=== PATIENT | female | born 1930 ===

== ENCOUNTER 2017-09-28 20:40 | Inpatient (IN) | payer MEDICARE, MEDICAID ==
[2017-09-28 20:42] VITALS: BMI 36.6
[2017-09-28] MEDS ORDERED: Nitroglycerin 2% Ointment Foilpak UD TOP STA ×2 (21:07→23:08)
--- NOTE | 2017-09-28 21:59 | ED PDOC ---
HPI: SOB/CHF/COPD Time Seen by Provider: 09/28/17 20:54 Chief Complaint (Nursing): Shortness Of Breath Chief Complaint (Provider): Shortness Of Breath and Leg Swelling History Per: Patient History/Exam Limitations: no limitations Onset/Duration Of Symptoms: Days (x 1 week ) Current Symptoms Are (Timing): Still Present Additional Complaint(s): 87 year old male with history of renal insufficiency (not on dialysis) and shortness of breath presents to the ED with shortness of breath and leg swelling for the last week. Patient admits to be non compliant with her Lasix. She is oxygen dependent at night when she is home. Reports worsening shortness of breath at night despite oxygen use at home, dyspnea on exertion and describes orthopnea. Offers no other medical complaints. PMDb: Dr. Raymundo Past Medical History Reviewed: Historical Data, Nursing Documentation, Vital Signs Vital Signs: Last Vital Signs Temp 98.4 F 09/29/17 01:28 Pulse 96 H 09/29/17 02:51 Resp 20 09/29/17 01:28 BP 204/80 H 09/29/17 02:51 Pulse Ox 98 09/29/17 01:28 - Medical History PMH: Anxiety, Asthma, COPD, Depression, Diabetes, Deep Vein Thrombosis (left leg ), HTN, Hypercholesterolemia, Osteoporosis, Pneumonia, Chronic Kidney Disease ( stage IV), TIA Denies: Arthritis, CHF, Hypothyroidism, Rheumatoid Arthritis - Surgical History Surgical History: Appendectomy, Cholecystectomy - Family History Family History: States: Unknown Family Hx - Home Medications Home Medications: Ambulatory Orders Medication Instructions Recorded Ascorbic Acid [Vitamin C] 500 mg PO DAILY 09/28/17 Aspirin [Ecotrin] 81 mg PO DAILY 09/28/17 Atorvastatin [Lipitor] 20 mg PO DAILY 09/28/17 Ergocalciferol (Vitamin D2) 50,000 unit PO QWK 09/28/17 [Vitamin D2] Ferrous Sulfate [Feosol] 325 mg PO BID 09/28/17 Furosemide [Lasix] 40 mg PO DAILY 09/28/17 Glipizide [Glipizide ER] 2.5 mg PO BID 09/28/17 Multivitamin/Iron/Folic Acid 1 each PO DAILY 09/28/17 [Certavite-Antioxidant Tablet] Nitroglycerin [Nitroglycerin 0.4 mg TD DAILY 09/28/17 Transdermal System] cloNIDine [clonidine HCl] 0.1 mg PO TID 09/28/17 hydrALAZINE Hydrochloride 50 mg PO TID 09/28/17 [Apresoline] - Allergies Allergies/Adverse Reactions: Allergies Allergy/AdvReac Type Severity Reaction Status Date / Time No Known Allergies Allergy Verified 05/09/15 19:29 Review of Systems ROS Statement: Except As Marked, All Systems Reviewed And Found Negative Respiratory: Positive for: Shortness of Breath, SOB with Exertion, Other ( orthopnea) Physical Exam - Reviewed Nursing Documentation Reviewed: Yes Vital Signs Reviewed: Yes - Physical Exam Appears: Positive for: Non-toxic, In Acute Distress (mild ) Head Exam: Positive for: ATRAUMATIC, NORMAL INSPECTION, NORMOCEPHALIC Skin: Positive for: Normal Color, Warm, Dry Eye Exam: Positive for: EOMI, Normal appearance, PERRL Neck: Positive for: Normal, Painless ROM, Supple Cardiovascular/Chest: Positive for: Regular Rate, Rhythm. Negative for: Murmur Respiratory: Positive for: Crackles (at bases bilaterally) Gastrointestinal/Abdominal: Positive for: Normal Exam, Soft. Negative for: Tenderness Extremity: Positive for: Normal ROM, Pedal Edema (3+ edema in right LE; 1+ edema in left LE) Neurologic/Psych: Positive for: Alert, Oriented. Negative for: Motor/Sensory Deficits - Laboratory Results Result Diagrams: 09/28/17 22:57 09/28/17 22:57 - ECG O2 Sat by Pulse Oximetry: 95 (RA) Pulse Ox Interpretation: Normal Medical Decision Making Medical Decision Making: Time: 20:55 Impression: 87 year old female with dyspnea and swelling in setting of renal insufficiency Initial Plan: --labs --CXR --EKG --Lasix 40 mg IV --Nitroglycerin 2% --Duplex US CXR --reveals cardiomegaly and bilateral pulmonary vascular congestion. 22:18 --Patient will be admitted to inpatient care due to CHF and chronic renal failure. 23:08 US Duplex Bilateral Lower Extremity FINDINGS: Right deep veins: Unremarkable. No DVT in the right common femoral, femoral, proximal deep femoral or popliteal veins. The veins demonstrate normal color flow, are normally compressible, with normal phasic flow and/or augmentation response. Right superficial veins: Unremarkable. No thrombus in the visualized right great saphenous vein. Left deep veins: Unremarkable. No DVT in the left common femoral, femoral, proximal deep femoral or popliteal veins. The veins demonstrate normal color flow, are normally compressible, with normal phasic flow and/or augmentation response. Left superficial veins: Unremarkable. No thrombus in the visualized left great saphenous vein. IMPRESSION: Normal bilateral lower extremity duplex venous ultrasound. ---- Scribe Attestation: Documented by Mary Sylvester, acting as a scribe for Lupillo Hester MD Provider Scribe Attestation: All medical record entries made by the Scribe were at my direction and personally dictated by me. I have reviewed the chart and agree that the record accurately reflects my personal performance of the history, physical exam, medical decision making, and the department course for this patient. I have also personally directed, reviewed, and agree with the discharge instructions and disposition. Disposition - Clinical Impression Clinical Impression: CHF (congestive heart failure), CKD (chronic kidney disease) Discussed With DrRonaldo: Harmeet Raymundo Counseled Patient/Family Regarding: Studies Performed, Diagnosis - Disposition Disposition Time: 22:00 Condition: FAIR
[2017-09-28 23:08] LABS: BASO # 0.1 K/uL (0.0-0.2); BASO % 0.5 % (0.0-2.0); EOS # 0.3 K/uL (0.0-0.7); EOS % 2.4 % (0.0-4.0); LYMPH # 1.9 K/uL (1.0-4.3); LYMPH % 16.8 % (20.0-40.0); MEAN CELL VOLUME 88.3 fl (81.0-99.0); MEAN CORPUSCULAR HEMOGLOBIN 28.8 pg (27.0-31.0); MEAN CORPUSCULAR HGB CONC 32.6 g/dL (33.0-37.0); MEAN PLATELET VOLUME 8.6 fl (7.2-11.7); MONO # 0.8 K/uL (0.0-0.8); MONO % 6.9 % (0.0-10.0); NEUT # 8.3 K/uL (1.8-7.0); NEUT % 73.4 % (50.0-75.0); NRBC % 0.1 % (0.0-0.0); RBC 3.82 Mil/uL (3.80-5.20); RED CELL DISTRIBUTION WIDTH 15.1 % (11.5-14.5); WHITE BLOOD COUNT 11.3 K/uL (4.8-10.8)
[2017-09-28 23:17] LABS: ALB/GLOB RATIO 1.5 (1.0-2.1); ALBUMIN 4.3 g/dL (3.5-5.0); CALCIUM 9.6 mg/dL (8.4-10.2); INR 1.1 (0.9-1.2); PARTIAL THROMBOPLASTIN TIME 28.1 Seconds (25.6-37.1)
[2017-09-28 23:28] LABS: TROPONIN I 0.018 ng/mL (0.00-0.120)
[2017-09-29] MEDS: Albuterol-Ipratrop 3 mg / 0.5 (3 ml) UD INH SCH ×4 (03:00→19:26)
[2017-09-29] MEDS: Nitroglycerin 2% Ointment Foilpak UD TOP SCH ×4 (05:08→21:39)
[2017-09-29] MEDS ORDERED: Pneumococcal 23-Valent Vaccine IM ONE (06:00)
[2017-09-29 06:07] LABS: TROPONIN I 0.029 ng/mL (0.00-0.120)
[2017-09-29 06:12] LABS: T4 8.97 ug/dl (5.5-11.0)
[2017-09-29 06:22] LABS: HEMOGLOBIN 9.8 g/dL (12.0-16.0); MEAN CELL VOLUME 87.6 fl (81.0-99.0); MEAN CORPUSCULAR HEMOGLOBIN 30.2 pg (27.0-31.0); MEAN CORPUSCULAR HGB CONC 34.4 g/dL (33.0-37.0); RBC 3.23 Mil/uL (3.80-5.20); WHITE BLOOD COUNT 10.6 K/uL (4.8-10.8)
[2017-09-29 06:24] LABS: ALB/GLOB RATIO 1.3 (1.0-2.1); ALBUMIN 3.3 g/dL (3.5-5.0); CALCIUM 8.9 mg/dL (8.4-10.2)
[2017-09-29] MEDS: Insulin Lispro (humaLOG) 100 Units/ml Inj SC SCH ×4 (06:35→21:38)
[2017-09-29 07:02] LABS: URINE BACTERIA RARE (<OCC); URINE BILIRUBIN NEGATIVE (NEGATIVE); URINE BLOOD NEGATIVE (NEGATIVE); URINE CLARITY CLEAR (Clear); URINE COLOR YELLOW (YELLOW); URINE GLUCOSE (UA) NEG (Normal); URINE HYALINE CAST 0-2 /hpf (0-2); URINE LEUKOCYTE ESTERASE NEG Leu/uL (Negative); URINE PROTEIN 100 mg/dL (NEGATIVE); URINE UROBILINOGEN 0.2-1.0 mg/dL (0.2-1.0)
[2017-09-29] MEDS ORDERED: IRON PO SCH (09:00)
[2017-09-29] MEDS ORDERED: FOLIC ACID PO SCH (09:00)
[2017-09-29] MEDS ORDERED: MULTIVITAMIN PO SCH (09:00)
[2017-09-29] MEDS: GlipiZIDE 2.5 mg SR Tab PO SCH ×2 (09:08→17:07)
[2017-09-29] MEDS: Multivitamin With Minerals Tab PO SCH (09:08)
--- NOTE | 2017-09-29 11:23 | RAD ---
Date of service: 09/28/2017 HISTORY: Chest pain COMPARISON: 05/09/2015. FINDINGS: LUNGS: No active pulmonary disease. PLEURA: No significant pleural effusion identified, no pneumothorax apparent. CARDIOVASCULAR: Cardiomegaly, pulmonary vascular congestion. OSSEOUS STRUCTURES: Incompletely visualized degenerative changes both shoulders. VISUALIZED UPPER ABDOMEN: Normal. OTHER FINDINGS: None. IMPRESSION: Cardiomegaly/mild CHF.
--- NOTE | 2017-09-29 11:51 | US ---
Date of service: 09/28/2017 PROCEDURE: Bilateral lower extremity venous duplex Doppler. HISTORY: swelling COMPARISON: None available. TECHNIQUE: Bilateral common femoral, superficial femoral, popliteal and posterior tibial veins were evaluated. Flow was assessed with color Doppler, compressibility, assessment of phasic flow and augmentation response. FINDINGS: COMMON FEMORAL VEIN: Right CFV: Unremarkable. Left CFV: Unremarkable. SUPERFICIAL FEMORAL VEIN: Right SFV: Unremarkable. Left SFV: Unremarkable. POPLITEAL VEIN: Right Popliteal: Unremarkable. Left Popliteal: Unremarkable. POSTERIOR TIBIAL VEIN: Right PTV: Unremarkable. Left PTV: Unremarkable. OTHER FINDINGS: None. IMPRESSION: No evidence of deep venous thrombosis.
--- NOTE | 2017-09-29 12:22 | CP.PCM.CON ---
History of Present Illness - History of Present Illness History of Present Illness: This patient whole is 87 years of age known to me with history of chronic kidney disease stage III that has been stable in the past 2 years or so. And with a chronic hyperkalemia patient has been taken medication for the hyperkalemia 3 times a week [place]. And she has not been recently seen. And she presented to the emergency room complaining of increasing shortness of breath difficulty breathing dyspnea increasing leg swollen and leg edema. Past medical history related to hyperkalemia on chronic basis we will #2 chronic kidney disease stage III related to diabetes #3 diabetes mellitus #4 history of CHF and COPD Social history not contributory the daughter at the bedside Review of Systems - Constitutional Constitutional: absent: Chills - Cardiovascular Cardiovascular: Dyspnea, Edema. absent: Chest Pain - Respiratory Respiratory: Cough, Dyspnea, Chest Congestion. absent: Hemoptysis - Gastrointestinal Gastrointestinal: absent: Abdominal Pain, Coffee Ground Emesis - Genitourinary Genitourinary: Nocturia - Musculoskeletal Musculoskeletal: Muscle Weakness. absent: Back Pain, Loss of Height - Neurological Neurological: absent: Confusion, Focal Weakness - Endocrine Endocrine: Fatigue - Hematologic/Lymphatic Hematologic: absent: Easy Bleeding Past Patient History - Past Medical History & Family History Past Medical History?: Yes - Past Social History Smoking Status: Never Smoked - CARDIAC Hx Congestive Heart Failure: No Hx Hypercholesterolemia: Yes Hx Hypertension: Yes - PULMONARY Hx Asthma: Yes Hx Chronic Obstructive Pulmonary Disease (COPD): Yes Hx Pneumonia: Yes - NEUROLOGICAL Hx Transient Ischemic Attacks (TIA): Yes - HEENT Hx HEENT Problems: Yes Hx Cataracts: Yes - RENAL Hx Chronic Kidney Disease: Yes (stage IV) - ENDOCRINE/METABOLIC Hx Hypothyroidism: No - HEMATOLOGICAL/ONCOLOGICAL Hx Blood Disorders: No - INTEGUMENTARY Hx Dermatological Problems: No - MUSCULOSKELETAL/RHEUMATOLOGICAL Hx Arthritis: No Hx Osteoporosis: Yes Hx Rheumatoid Arthritis: No - GASTROINTESTINAL Hx Gastrointestinal Disorders: No - GENITOURINARY/GYNECOLOGICAL Hx Genitourinary Disorders: Yes - PSYCHIATRIC Hx Anxiety: Yes Hx Depression: Yes - SURGICAL HISTORY Hx Appendectomy: Yes Hx Cholecystectomy: Yes - ANESTHESIA Hx Anesthesia: Yes Hx Anesthesia Reactions: No Hx Malignant Hyperthermia: No Meds Allergies/Adverse Reactions: Allergies Allergy/AdvReac Type Severity Reaction Status Date / Time No Known Allergies Allergy Verified 05/09/15 19:29 - Medications Medications: Current Medications Albuterol/Ipratropium (Duoneb 3 Mg/0.5 Mg (3 Ml) Ud) 3 ml INH RQ6 [facility] Last Admin: 09/29/17 07:58 Dose: 3 ml Ascorbic Acid (Vitamin C 500 Mg Tab) 500 mg PO DAILY [facility] Last Admin: 09/29/17 09:09 Dose: 500 mg Aspirin (Ecotrin) 81 mg PO DAILY [facility] Last Admin: 09/29/17 09:07 Dose: 81 mg Atorvastatin Calcium (Lipitor) 20 mg PO DAILY [facility] Last Admin: 09/29/17 09:08 Dose: 20 mg Clonidine HCl (Catapres) 0.1 mg PO Q8 [facility] Last Admin: 09/29/17 09:12 Dose: 0.1 mg Ergocalciferol (Drisdol 50,000 Intl Units Cap) 1 cap PO QWK [facility] Ferrous Sulfate (Feosol) 325 mg PO BID [facility] Last Admin: 09/29/17 09:07 Dose: 325 mg Furosemide (Lasix) 40 mg IVP Q12 [facility] Last Admin: 09/29/17 09:08 Dose: 40 mg Glipizide (Glucotrol Xl) 2.5 mg PO BID [facility] Last Admin: 09/29/17 09:08 Dose: 2.5 mg Heparin Sodium (Porcine) (Heparin) 5,000 units SC Q12 [facility] PRN Reason: Protocol Last Admin: 09/29/17 09:12 Dose: 5,000 units Home Med (Home Med) 8.4 unit PO BIDMWF [facility] Hydralazine HCl (Apresoline) 50 mg PO Q8 [facility] Last Admin: 09/29/17 11:40 Dose: 50 mg Insulin Human Lispro (Humalog) 0 units SC ACHS [facility] PRN Reason: Protocol Last Admin: 09/29/17 11:45 Dose: 5 u Multivitamins/Minerals (Therapeutic-M Tab) 1 tab PO DAILY [facility] Last Admin: 09/29/17 09:08 Dose: 1 tab Nitroglycerin (Nitro-Bid 2% Oint) 1 ea TOP Q6 [facility] Last Admin: 09/29/17 09:13 Dose: 1 ea Sodium Polystyrene Sulfonate (Kayexalate Susp) 15 gm PO MWF [facility] Physical Exam - Constitutional Appears: No Acute Distress - ENT Exam ENT Exam: Mucous Membranes Moist - Neck Exam Neck exam: Negative for: Lymphadenopathy - Respiratory Exam Respiratory Exam: Rales, Rhonchi, Wheezes - Cardiovascular Exam Cardiovascular Exam: absent: Gallop, JVD, Rubs - GI/Abdominal Exam GI & Abdominal Exam: Normal Bowel Sounds - Extremities Exam Extremities exam: Positive for: pedal edema. Negative for: calf tenderness - Back Exam Back exam: absent: CVA tenderness (L), CVA tenderness (R) - Neurological Exam Neurological exam: Alert - Psychiatric Exam Psychiatric exam: Normal Affect Results - Vital Signs Recent Vital Signs: Last Vital Signs Temp 98.5 F 09/29/17 09:00 Pulse 79 09/29/17 09:13 Resp 20 09/29/17 09:00 BP 162/76 H 09/29/17 09:13 Pulse Ox 99 09/29/17 09:00 - Labs Result Diagrams: 09/29/17 04:55 09/29/17 04:55 Labs: Laboratory Results - last 24 hr 09/28/17 09/28/17 09/28/17 22:57 22:57 22:57 WBC 11.3 H D RBC 3.82 Hgb 11.0 L Hct 33.7 L MCV 88.3 D MCH 28.8 MCHC 32.6 L RDW 15.1 H Plt Count 259 MPV 8.6 Neut % (Auto) 73.4 Lymph % (Auto) 16.8 L [place] % (Auto) 6.9 Eos % (Auto) 2.4 Baso % (Auto) 0.5 Neut # (Auto) 8.3 H Lymph # (Auto) 1.9 [place] # (Auto) 0.8 Eos # (Auto) 0.3 Baso # (Auto) 0.1 PT 12.0 INR 1.1 APTT 28.1 Sodium 142 Potassium 4.0 Chloride 106 Carbon Dioxide 24 Anion Gap 16 BUN 31 H Creatinine 1.2 Est GFR ( Amer) 51 Est GFR (Non-Af Amer) 42 Random Glucose 178 H Hemoglobin A1c Calcium 9.6 Total Bilirubin 1.2 AST 35 ALT 29 Alkaline Phosphatase 92 Troponin I 0.0180 NT-Pro-B Natriuret Pep 1160 H Total Protein 7.3 Albumin 4.3 Globulin 2.9 Albumin/Globulin Ratio 1.5 Triglycerides Cholesterol LDL Cholesterol Direct HDL Cholesterol Thyroxine (T4) TSH 3rd Generation Urine Color Urine Clarity Urine pH Ur Specific [place] Urine Protein Urine Glucose (UA) Urine Ketones Urine Blood Urine Nitrate Urine Bilirubin Urine Urobilinogen Ur Leukocyte Esterase Urine RBC (Auto) Urine Bacteria Hyaline Casts Urine Osmolality Ur Random Creatinine Ur Random Sodium Ur Random Potassium 09/29/17 09/29/17 09/29/17 04:55 04:55 04:55 WBC 10.6 RBC 3.23 L Hgb 9.8 L Hct 28.3 L MCV 87.6 MCH 30.2 MCHC 34.4 RDW 15.0 H Plt Count 172 MPV Neut % (Auto) Lymph % (Auto) [place] % (Auto) Eos % (Auto) Baso % (Auto) Neut # (Auto) Lymph # (Auto) [place] # (Auto) Eos # (Auto) Baso # (Auto) PT INR APTT Sodium 143 Potassium 3.6 Chloride 108 H Carbon Dioxide 25 Anion Gap 14 BUN 31 H Creatinine 1.4 H Est GFR ( Amer) 43 Est GFR (Non-Af Amer) 36 Random Glucose 159 H Hemoglobin A1c 8.5 H D Calcium 8.9 Total Bilirubin 0.9 AST 26 ALT 29 Alkaline Phosphatase 71 Troponin I 0.0290 NT-Pro-B Natriuret Pep Total Protein 5.9 L Albumin 3.3 L D Globulin 2.6 Albumin/Globulin Ratio 1.3 Triglycerides 63 D Cholesterol 106 LDL Cholesterol Direct 42 HDL Cholesterol 39 Thyroxine (T4) 8.97 TSH 3rd Generation 1.23 Urine Color Urine Clarity Urine pH Ur Specific [place] Urine Protein Urine Glucose (UA) Urine Ketones Urine Blood Urine Nitrate Urine Bilirubin Urine Urobilinogen Ur Leukocyte Esterase Urine RBC (Auto) Urine Bacteria Hyaline Casts Urine Osmolality Ur Random Creatinine Ur Random Sodium Ur Random Potassium 09/29/17 09/29/17 09/29/17 06:30 06:30 06:30 WBC RBC Hgb Hct MCV MCH MCHC RDW Plt Count MPV Neut % (Auto) Lymph % (Auto) [place] % (Auto) Eos % (Auto) Baso % (Auto) Neut # (Auto) Lymph # (Auto) [place] # (Auto) Eos # (Auto) Baso # (Auto) PT INR APTT Sodium Potassium Chloride Carbon Dioxide Anion Gap BUN Creatinine Est GFR ( Amer) Est GFR (Non-Af Amer) Random Glucose Hemoglobin A1c Calcium Total Bilirubin AST ALT Alkaline Phosphatase Troponin I NT-Pro-B Natriuret Pep Total Protein Albumin Globulin Albumin/Globulin Ratio Triglycerides Cholesterol LDL Cholesterol Direct HDL Cholesterol Thyroxine (T4) TSH 3rd Generation Urine Color Yellow Urine Clarity Clear Urine pH 6.0 Ur Specific [place] 1.008 Urine Protein 100 Urine Glucose (UA) Neg Urine Ketones Negative Urine Blood Negative Urine Nitrate Negative Urine Bilirubin Negative Urine Urobilinogen 0.2-1.0 Ur Leukocyte Esterase Neg Urine RBC (Auto) 1 Urine Bacteria Rare Hyaline Casts 0-2 Urine Osmolality Ur Random Creatinine 27.9 Ur Random Sodium 125 Ur Random Potassium 8.9 09/29/17 06:30 WBC RBC Hgb Hct MCV MCH MCHC RDW Plt Count MPV Neut % (Auto) Lymph % (Auto) [place] % (Auto) Eos % (Auto) Baso % (Auto) Neut # (Auto) Lymph # (Auto) [place] # (Auto) Eos # (Auto) Baso # (Auto) PT INR APTT Sodium Potassium Chloride Carbon Dioxide Anion Gap BUN Creatinine Est GFR ( Amer) Est GFR (Non-Af Amer) Random Glucose Hemoglobin A1c Calcium Total Bilirubin AST ALT Alkaline Phosphatase Troponin I NT-Pro-B Natriuret Pep Total Protein Albumin Globulin Albumin/Globulin Ratio Triglycerides Cholesterol LDL Cholesterol Direct HDL Cholesterol Thyroxine (T4) TSH 3rd Generation Urine Color Urine Clarity Urine pH Ur Specific [place] Urine Protein Urine Glucose (UA) Urine Ketones Urine Blood Urine Nitrate Urine Bilirubin Urine Urobilinogen Ur Leukocyte Esterase Urine RBC (Auto) Urine Bacteria Hyaline Casts Urine Osmolality 317 Ur Random Creatinine Ur Random Sodium Ur Random Potassium Assessment & Plan (1) Chronic kidney disease, stage III (moderate) Assessment and Plan: Chronic kidney disease stage III which has been stable. Most likely related to diabetic nephropathy. Diabetes mellitus type 2 Chronic hyperkalemia although potassium is okay because she has been taken her medication for the potassium 3 times a week Congestive heart failure as noted with the primary team Bilateral leg edema My recommendation Patient receiving treatment for CHF including intravenous Lasix gently monitor weight every day so she would not be over diuresed and intake and output Urinalysis and spot urine for protein to creatinine ratio Status: Acute (2) CHF (congestive heart failure) Status: Acute Priority: High
--- NOTE | 2017-09-29 12:34 | US ---
Date of service: 09/29/2017 PROCEDURE: Duplex ultrasound of the carotid and vertebral arteries. HISTORY: CHF, chronic renal failure. COMPARISON: 06/22/2011. TECHNIQUE: Grayscale and duplex Doppler evaluation of the cervical carotid and vertebral arteries were performed. The common carotid, carotid bifurcations and cervical ICA and proximal ECA were evaluated. The vertebral arteries were evaluated for gross patency and direction. FINDINGS: RIGHT CAROTID ARTERIES: Common Carotid Artery: Intimal thickening is present Maximal flow velocity of 124.3 cm/s. Carotid Bifurcation: Intimal thickening is present Internal Carotid Artery:Heterogeneous plaque formation. Maximal flow velocity of 158.9 cm/s. External Carotid Artery (proximal branches): Normal. Maximal flow velocity of 125.4 cm/s. ICA/CCA Ratio: 1.3 LEFT CAROTID ARTERIES: Common Carotid Artery: Intimal thickening is present Maximal flow velocity of 143.9 cm/s. Carotid Bifurcation: Heterogeneous plaque formation. Internal Carotid Artery:Heterogeneous plaque formation. Maximal flow velocity of 214.4 cm/s. External Carotid Artery (proximal branches): Normal. Maximal flow velocity of 143.8 cm/s. ICA/CCA Ratio: 1.8 VERTEBRAL ARTERIES: Right Vertebral Artery: Patent. Antegrade flow. Left Vertebral Artery: Patent. Antegrade flow. OTHER FINDINGS: IMPRESSION: Right ICA degree of stenosis: 50-69 % Left ICA degree of stenosis: 50-69 % These are progressive findings compared to the prior study (previous degree of stenosis is less than 50% bilaterally.) Reference Internal Carotid Artery (ICA) Peak Systolic Velocity (PSV) for above: 1. Less than 50% stenosis less than 125 cm/s peak systolic velocity 2. 50-69% stenosis 125-230cm/s peak systolic velocity 3. Greater than 70% but less than near occlusion greater than 230 cm/s peak systolic velocity
--- NOTE | 2017-09-29 14:37 | CP.PCM.HP ---
History of Present Illness - History of Present Illness History of Present Illness: 87 y/o F with extensive PMHx including COPD, Diabetes, CKD III (not in dialysis ) presents to [facility] complaining of SOB, and lower extremities edema for one week. She is oxygen dependent at night when she is home. Reports worsening shortness of breath at night despite oxygen use at home, dyspnea on exertion and describes orthopnea. Denies chest pain, N/V, cough, sputum production, wheezing , abdominal pain. Present on Admission - Present on Admission Any Indicators Present on Admission: No History of DVT/PE: No History of Uncontrolled Diabetes: No Urinary Catheter: No Decubitus Ulcer Present: No Review of Systems - Review of Systems All systems: reviewed and no additional remarkable complaints except (as per HPI ) - Constitutional Constitutional: Other (no) - EENT Eyes: Change in Vision Ears: Dizziness, Other Nose/Mouth/Throat: Other (no) - Cardiovascular Cardiovascular: Dyspnea, Dyspnea on Exertion, Edema, Leg Edema, Orthopnea, Pedal Edema - Respiratory Respiratory: Dyspnea, Dyspnea on Exertion - Gastrointestinal Gastrointestinal: Other (no) - Genitourinary Genitourinary: Other (no) - Musculoskeletal Musculoskeletal: Arthralgias, Back Pain - Integumentary Integumentary: Other (no) - Neurological Neurological: Dizziness - Psychiatric Psychiatric: Anxiety, Memory Loss - Endocrine Endocrine: Other (no) - Hematologic/Lymphatic Hematologic: Other (no) Past Patient History - Past Medical History & Family History Past Medical History?: Yes - Past Social History Smoking Status: Never Smoked Alcohol: None Drugs: Denies - CARDIAC Hx Congestive Heart Failure: No Hx Hypercholesterolemia: Yes Hx Hypertension: Yes Hx Peripheral Vascular Disease: Yes - PULMONARY Hx Asthma: Yes Hx Chronic Obstructive Pulmonary Disease (COPD): Yes Hx Pneumonia: Yes - NEUROLOGICAL Hx Transient Ischemic Attacks (TIA): Yes - HEENT Hx HEENT Problems: Yes Hx Cataracts: Yes - RENAL Hx Chronic Kidney Disease: Yes (stage III) - ENDOCRINE/METABOLIC Hx Hypothyroidism: No - HEMATOLOGICAL/ONCOLOGICAL Hx Blood Disorders: No - INTEGUMENTARY Hx Dermatological Problems: No - MUSCULOSKELETAL/RHEUMATOLOGICAL Hx Arthritis: Yes Hx Back Pain: Yes Hx Degenerative Joint Disease: Yes Hx Osteoarthritis: Yes Hx Osteoporosis: Yes Hx Rheumatoid Arthritis: No Hx Unsteady Gait: Yes - GASTROINTESTINAL Hx Gastrointestinal Disorders: No - GENITOURINARY/GYNECOLOGICAL Hx Genitourinary Disorders: Yes - PSYCHIATRIC Hx Anxiety: Yes Hx Depression: Yes - SURGICAL HISTORY Hx Appendectomy: Yes Hx Cholecystectomy: Yes - ANESTHESIA Hx Anesthesia: Yes Hx Anesthesia Reactions: No Hx Malignant Hyperthermia: No Meds Allergies/Adverse Reactions: Allergies Allergy/AdvReac Type Severity Reaction Status Date / Time No Known Allergies Allergy Verified 05/09/15 19:29 Physical Exam - Constitutional Appears: Non-toxic, No Acute Distress Additional comments: Noted mild respiratory distress - Head Exam Head Exam: ATRAUMATIC, NORMOCEPHALIC - Eye Exam Eye Exam: Normal appearance. absent: Conjunctival injection - ENT Exam ENT Exam: Mucous Membranes Moist - Neck Exam Neck exam: Positive for: Normal Inspection - Respiratory Exam Respiratory Exam: Decreased Breath Sounds (lung bases). absent: Rales, Rhonchi , Wheezes, Stridor - Cardiovascular Exam Cardiovascular Exam: REGULAR RHYTHM, +S1, +S2, Systolic Murmur - GI/Abdominal Exam GI & Abdominal Exam: Normal Bowel Sounds, Soft. absent: Distended, Guarding, Rebound, Tenderness - Extremities Exam Extremities exam: Positive for: pedal edema. Negative for: calf tenderness Additional comments: Pitting 2 + edema in both lower extremities, chronic skin distal changes, knees tenderness - Back Exam Back exam: tenderness - Neurological Exam Neurological exam: Alert, Oriented x3 Additional comments: no focal motor/sensory deficit - Psychiatric Exam Psychiatric exam: Anxious - Skin Skin Exam: Dry, Intact, Warm Results - Vital Signs Recent Vital Signs: Last Vital Signs Temp 97.5 F L 09/29/17 13:00 Pulse 66 09/29/17 13:00 Resp 18 09/29/17 13:00 BP 147/60 09/29/17 13:00 Pulse Ox 97 09/29/17 13:00 - Labs Result Diagrams: 09/30/17 14:10 09/30/17 04:00 Labs: Laboratory Results - last 24 hr 09/28/17 09/28/17 09/28/17 22:57 22:57 22:57 WBC 11.3 H D RBC 3.82 Hgb 11.0 L Hct 33.7 L MCV 88.3 D MCH 28.8 MCHC 32.6 L RDW 15.1 H Plt Count 259 MPV 8.6 Neut % (Auto) 73.4 Lymph % (Auto) 16.8 L [place] % (Auto) 6.9 Eos % (Auto) 2.4 Baso % (Auto) 0.5 Neut # (Auto) 8.3 H Lymph # (Auto) 1.9 [place] # (Auto) 0.8 Eos # (Auto) 0.3 Baso # (Auto) 0.1 PT 12.0 INR 1.1 APTT 28.1 Sodium 142 Potassium 4.0 Chloride 106 Carbon Dioxide 24 Anion Gap 16 BUN 31 H Creatinine 1.2 Est GFR ( Amer) 51 Est GFR (Non-Af Amer) 42 Random Glucose 178 H Hemoglobin A1c Calcium 9.6 Phosphorus Total Bilirubin 1.2 AST 35 ALT 29 Alkaline Phosphatase 92 Troponin I 0.0180 NT-Pro-B Natriuret Pep 1160 H Total Protein 7.3 Albumin 4.3 Globulin 2.9 Albumin/Globulin Ratio 1.5 Triglycerides Cholesterol LDL Cholesterol Direct HDL Cholesterol Thyroxine (T4) TSH 3rd Generation Urine Color Urine Clarity Urine pH Ur Specific [place] Urine Protein Urine Glucose (UA) Urine Ketones Urine Blood Urine Nitrate Urine Bilirubin Urine Urobilinogen Ur Leukocyte Esterase Urine RBC (Auto) Urine Bacteria Hyaline Casts Urine Osmolality Ur Random Creatinine Ur Random Sodium Ur Random Potassium 09/29/17 09/29/17 09/29/17 04:55 04:55 04:55 WBC 10.6 RBC 3.23 L Hgb 9.8 L Hct 28.3 L MCV 87.6 MCH 30.2 MCHC 34.4 RDW 15.0 H Plt Count 172 MPV Neut % (Auto) Lymph % (Auto) [place] % (Auto) Eos % (Auto) Baso % (Auto) Neut # (Auto) Lymph # (Auto) [place] # (Auto) Eos # (Auto) Baso # (Auto) PT INR APTT Sodium 143 Potassium 3.6 Chloride 108 H Carbon Dioxide 25 Anion Gap 14 BUN 31 H Creatinine 1.4 H Est GFR ( Amer) 43 Est GFR (Non-Af Amer) 36 Random Glucose 159 H Hemoglobin A1c 8.5 H D Calcium 8.9 Phosphorus Total Bilirubin 0.9 AST 26 ALT 29 Alkaline Phosphatase 71 Troponin I 0.0290 NT-Pro-B Natriuret Pep Total Protein 5.9 L Albumin 3.3 L D Globulin 2.6 Albumin/Globulin Ratio 1.3 Triglycerides 63 D Cholesterol 106 LDL Cholesterol Direct 42 HDL Cholesterol 39 Thyroxine (T4) 8.97 TSH 3rd Generation 1.23 Urine Color Urine Clarity Urine pH Ur Specific [place] Urine Protein Urine Glucose (UA) Urine Ketones Urine Blood Urine Nitrate Urine Bilirubin Urine Urobilinogen Ur Leukocyte Esterase Urine RBC (Auto) Urine Bacteria Hyaline Casts Urine Osmolality Ur Random Creatinine Ur Random Sodium Ur Random Potassium 09/29/17 09/29/17 09/29/17 06:30 06:30 06:30 WBC RBC Hgb Hct MCV MCH MCHC RDW Plt Count MPV Neut % (Auto) Lymph % (Auto) [place] % (Auto) Eos % (Auto) Baso % (Auto) Neut # (Auto) Lymph # (Auto) [place] # (Auto) Eos # (Auto) Baso # (Auto) PT INR APTT Sodium Potassium Chloride Carbon Dioxide Anion Gap BUN Creatinine Est GFR ( Amer) Est GFR (Non-Af Amer) Random Glucose Hemoglobin A1c Calcium Phosphorus Total Bilirubin AST ALT Alkaline Phosphatase Troponin I NT-Pro-B Natriuret Pep Total Protein Albumin Globulin Albumin/Globulin Ratio Triglycerides Cholesterol LDL Cholesterol Direct HDL Cholesterol Thyroxine (T4) TSH 3rd Generation Urine Color Yellow Urine Clarity Clear Urine pH 6.0 Ur Specific [place] 1.008 Urine Protein 100 Urine Glucose (UA) Neg Urine Ketones Negative Urine Blood Negative Urine Nitrate Negative Urine Bilirubin Negative Urine Urobilinogen 0.2-1.0 Ur Leukocyte Esterase Neg Urine RBC (Auto) 1 Urine Bacteria Rare Hyaline Casts 0-2 Urine Osmolality Ur Random Creatinine 27.9 Ur Random Sodium 125 Ur Random Potassium 8.9 09/29/17 09/29/17 06:30 13:20 WBC RBC Hgb Hct MCV MCH MCHC RDW Plt Count MPV Neut % (Auto) Lymph % (Auto) [place] % (Auto) Eos % (Auto) Baso % (Auto) Neut # (Auto) Lymph # (Auto) [place] # (Auto) Eos # (Auto) Baso # (Auto) PT INR APTT Sodium Potassium Chloride Carbon Dioxide Anion Gap BUN Creatinine Est GFR ( Amer) Est GFR (Non-Af Amer) Random Glucose Hemoglobin A1c Calcium Phosphorus 3.2 Total Bilirubin AST ALT Alkaline Phosphatase Troponin I NT-Pro-B Natriuret Pep Total Protein Albumin Globulin Albumin/Globulin Ratio Triglycerides Cholesterol LDL Cholesterol Direct HDL Cholesterol Thyroxine (T4) TSH 3rd Generation Urine Color Urine Clarity Urine pH Ur Specific [place] Urine Protein Urine Glucose (UA) Urine Ketones Urine Blood Urine Nitrate Urine Bilirubin Urine Urobilinogen Ur Leukocyte Esterase Urine RBC (Auto) Urine Bacteria Hyaline Casts Urine Osmolality 317 Ur Random Creatinine Ur Random Sodium Ur Random Potassium Assessment & Plan (1) CHF (congestive heart failure) Status: Acute Priority: High (2) COPD (chronic obstructive pulmonary disease) Status: Chronic Priority: High (3) CKD (chronic kidney disease) Assessment and Plan: III Status: Chronic Priority: High (4) HTN (hypertension) Status: Chronic Priority: Medium (5) Type II diabetes mellitus Status: Chronic Priority: Medium - Assessment and Plan (Free Text) Plan: 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
[2017-09-29 15:48] LABS: SQUAMOUS EPITHIAL < 1 /hpf (0-5); URINE BACTERIA OCC (<OCC); URINE BILIRUBIN NEGATIVE (NEGATIVE); URINE BLOOD NEGATIVE (NEGATIVE); URINE CLARITY CLOUDY (Clear); URINE COLOR YELLOW (YELLOW); URINE GLUCOSE (UA) NEG (Normal); URINE HYALINE CAST >20 /hpf (0-2); URINE LEUKOCYTE ESTERASE SMALL Leu/uL (Negative); URINE PROTEIN 100 mg/dL (NEGATIVE); URINE UROBILINOGEN 0.2-1.0 mg/dL (0.2-1.0)
[2017-09-29 15:55] LABS: CREATININE, RANDOM URINE 150.9 mg/dL
--- NOTE | 2017-09-29 15:57 | CT ---
Date of service: 09/29/2017 PROCEDURE: CT Chest without contrast HISTORY: SOB COMPARISON: 05/13/2015 CT chest TECHNIQUE: Contiguous axial images were obtained through the chest without intravenous contrast enhancement. Sagittal and coronal reconstructions were performed. Radiation dose (DLP): 538 mGy-cm. This CT exam was performed using one or more of the following dose reduction techniques: Automated exposure control, adjustment of the mA and/or kV according to patient size, and/or use of iterative reconstruction technique. FINDINGS: LUNGS: The right lower lobe masslike opacity consolidation is renoted this is contiguous now with a right pleural effusion which appears increased since the prior exam. No apparent interval PET scan follow-up imaging of it is seen. No definite change in size is perceived. In the left lung base posteriorly there is interval progressive consolidation/ infiltrate and/or atelectasis with contiguous interval increase left pleural effusion noted. MEDIASTINUM: Unremarkable thoracic aorta. No aneurysm. Normal sized heart. Main pulmonary artery unremarkable. No vascular congestion. No prior right mediastinal precarinal lymph node appears slightly smaller in size now this measures approximately 1.4 by 0.9 cm in size. Smaller shotty benign-appearing mediastinal lymph nodes cephalad to this are noted. This no interval and large bowel larger or interval more worrisome appearing lymph nodes appreciated. PLEURA: Bilateral pleural effusions increased since the prior exam. No pneumothorax appreciated. BONES: No fracture. No destructive lesion. Thoracic spondylosis per UPPER ABDOMEN: Grossly unremarkable. OTHER FINDINGS: None. IMPRESSION: Interval increased bilateral pleural effusions with interval compressive contiguous atelectasis and/or infiltrates here seen. As before in the posterior right lower lobe there is masslike opacity consolidation that is grossly similar in appearance its full extent is difficult to assess given its silhouetting and blending with the right consolidation atelectasis in right pleural effusion. As mentioned previously consider follow-up PET-CT imaging if clinically indicated. Continued follow-up is advised. The prior dominant right mediastinal lymph node actually appears slightly smaller in size on this exam.
[2017-09-29] MEDS ORDERED: VELTASSA 8.4 GM PO SCH (17:00)
--- NOTE | 2017-09-29 17:36 | CP.PCM.CON ---
History of Present Illness - History of Present Illness History of Present Illness: Consultation for evaluation of CUELLAR , concern for CHF exacerbation HPI: 87 y/o F with extensive PMHx including COPD, Diabetes, CKD(no in dialysis) presents to [facility] complaining of SOB, and lower extremities edema for one week. She is oxygen dependent at night when she is home. Reports worsening shortness of breath at night despite oxygen use at home, dyspnea on exertion and describes orthopnea. Past Patient History - Past Medical History & Family History Past Medical History?: Yes - Past Social History Smoking Status: Never Smoked - CARDIAC Hx Congestive Heart Failure: No Hx Hypercholesterolemia: Yes Hx Hypertension: Yes - PULMONARY Hx Asthma: Yes Hx Chronic Obstructive Pulmonary Disease (COPD): Yes Hx Pneumonia: Yes - NEUROLOGICAL Hx Transient Ischemic Attacks (TIA): Yes - HEENT Hx HEENT Problems: Yes Hx Cataracts: Yes - RENAL Hx Chronic Kidney Disease: Yes (stage IV) - ENDOCRINE/METABOLIC Hx Hypothyroidism: No - HEMATOLOGICAL/ONCOLOGICAL Hx Blood Disorders: No - INTEGUMENTARY Hx Dermatological Problems: No - MUSCULOSKELETAL/RHEUMATOLOGICAL Hx Arthritis: No Hx Osteoporosis: Yes Hx Rheumatoid Arthritis: No - GASTROINTESTINAL Hx Gastrointestinal Disorders: No - GENITOURINARY/GYNECOLOGICAL Hx Genitourinary Disorders: Yes - PSYCHIATRIC Hx Anxiety: Yes Hx Depression: Yes - SURGICAL HISTORY Hx Appendectomy: Yes Hx Cholecystectomy: Yes - ANESTHESIA Hx Anesthesia: Yes Hx Anesthesia Reactions: No Hx Malignant Hyperthermia: No Meds Allergies/Adverse Reactions: Allergies Allergy/AdvReac Type Severity Reaction Status Date / Time No Known Allergies Allergy Verified 05/09/15 19:29 - Medications Medications: Current Medications Albuterol/Ipratropium (Duoneb 3 Mg/0.5 Mg (3 Ml) Ud) 3 ml INH RQ6 [facility] Last Admin: 09/29/17 14:17 Dose: Not Given Ascorbic Acid (Vitamin C 500 Mg Tab) 500 mg PO DAILY [facility] Last Admin: 09/29/17 09:09 Dose: 500 mg Aspirin (Ecotrin) 81 mg PO DAILY [facility] Last Admin: 09/29/17 09:07 Dose: 81 mg Atorvastatin Calcium (Lipitor) 20 mg PO DAILY [facility] Last Admin: 09/29/17 09:08 Dose: 20 mg Clonidine HCl (Catapres) 0.1 mg PO Q8 [facility] Last Admin: 09/29/17 17:06 Dose: 0.1 mg Ergocalciferol (Drisdol 50,000 Intl Units Cap) 1 cap PO QWK [facility] Ferrous Sulfate (Feosol) 325 mg PO BID [facility] Last Admin: 09/29/17 17:09 Dose: 325 mg Furosemide (Lasix) 40 mg IVP Q12 [facility] Last Admin: 09/29/17 09:08 Dose: 40 mg Glipizide (Glucotrol Xl) 2.5 mg PO BID [facility] Last Admin: 09/29/17 17:07 Dose: 2.5 mg Heparin Sodium (Porcine) (Heparin) 5,000 units SC Q12 [facility] PRN Reason: Protocol Last Admin: 09/29/17 09:12 Dose: 5,000 units Hydralazine HCl (Apresoline) 50 mg PO Q8 [facility] Last Admin: 09/29/17 17:11 Dose: 50 mg Insulin Human Lispro (Humalog) 0 units SC ACHS [facility] PRN Reason: Protocol Last Admin: 09/29/17 17:09 Dose: 2 u Multivitamins/Minerals (Therapeutic-M Tab) 1 tab PO DAILY [facility] Last Admin: 09/29/17 09:08 Dose: 1 tab Nitroglycerin (Nitro-Bid 2% Oint) 1 ea TOP Q6 [facility] Last Admin: 09/29/17 17:07 Dose: 1 ea Sodium Polystyrene Sulfonate (Kayexalate Susp) 15 gm PO MWF [facility] Zolpidem Tartrate (Ambien) 5 mg PO HS PRN PRN Reason: Insomnia Results - Vital Signs Recent Vital Signs: Last Vital Signs Temp 97.9 F 09/29/17 16:32 Pulse 64 09/29/17 17:11 Resp 18 09/29/17 16:32 BP 141/77 09/29/17 17:11 Pulse Ox 99 09/29/17 16:32 - Labs Result Diagrams: 09/29/17 04:55 09/29/17 04:55 Labs: Laboratory Results - last 24 hr 09/28/17 09/28/17 09/28/17 22:57 22:57 22:57 WBC 11.3 H D RBC 3.82 Hgb 11.0 L Hct 33.7 L MCV 88.3 D MCH 28.8 MCHC 32.6 L RDW 15.1 H Plt Count 259 MPV 8.6 Neut % (Auto) 73.4 Lymph % (Auto) 16.8 L [place] % (Auto) 6.9 Eos % (Auto) 2.4 Baso % (Auto) 0.5 Neut # (Auto) 8.3 H Lymph # (Auto) 1.9 [place] # (Auto) 0.8 Eos # (Auto) 0.3 Baso # (Auto) 0.1 PT 12.0 INR 1.1 APTT 28.1 Sodium 142 Potassium 4.0 Chloride 106 Carbon Dioxide 24 Anion Gap 16 BUN 31 H Creatinine 1.2 Est GFR ( Amer) 51 Est GFR (Non-Af Amer) 42 Random Glucose 178 H Hemoglobin A1c Calcium 9.6 Phosphorus Total Bilirubin 1.2 AST 35 ALT 29 Alkaline Phosphatase 92 Troponin I 0.0180 NT-Pro-B Natriuret Pep 1160 H Total Protein 7.3 Albumin 4.3 Globulin 2.9 Albumin/Globulin Ratio 1.5 Triglycerides Cholesterol LDL Cholesterol Direct HDL Cholesterol Thyroxine (T4) TSH 3rd Generation Urine Color Urine Clarity Urine pH Ur Specific [place] Urine Protein Urine Glucose (UA) Urine Ketones Urine Blood Urine Nitrate Urine Bilirubin Urine Urobilinogen Ur Leukocyte Esterase Urine RBC (Auto) Urine Microscopic WBC Ur Squamous Epith Cells Urine Bacteria Hyaline Casts Urine Osmolality Ur Random Creatinine U Random Total Protein Ur Random Sodium Ur Random Potassium 09/29/17 09/29/17 09/29/17 04:55 04:55 04:55 WBC 10.6 RBC 3.23 L Hgb 9.8 L Hct 28.3 L MCV 87.6 MCH 30.2 MCHC 34.4 RDW 15.0 H Plt Count 172 MPV Neut % (Auto) Lymph % (Auto) [place] % (Auto) Eos % (Auto) Baso % (Auto) Neut # (Auto) Lymph # (Auto) [place] # (Auto) Eos # (Auto) Baso # (Auto) PT INR APTT Sodium 143 Potassium 3.6 Chloride 108 H Carbon Dioxide 25 Anion Gap 14 BUN 31 H Creatinine 1.4 H Est GFR ( Amer) 43 Est GFR (Non-Af Amer) 36 Random Glucose 159 H Hemoglobin A1c 8.5 H D Calcium 8.9 Phosphorus Total Bilirubin 0.9 AST 26 ALT 29 Alkaline Phosphatase 71 Troponin I 0.0290 NT-Pro-B Natriuret Pep Total Protein 5.9 L Albumin 3.3 L D Globulin 2.6 Albumin/Globulin Ratio 1.3 Triglycerides 63 D Cholesterol 106 LDL Cholesterol Direct 42 HDL Cholesterol 39 Thyroxine (T4) 8.97 TSH 3rd Generation 1.23 Urine Color Urine Clarity Urine pH Ur Specific [place] Urine Protein Urine Glucose (UA) Urine Ketones Urine Blood Urine Nitrate Urine Bilirubin Urine Urobilinogen Ur Leukocyte Esterase Urine RBC (Auto) Urine Microscopic WBC Ur Squamous Epith Cells Urine Bacteria Hyaline Casts Urine Osmolality Ur Random Creatinine U Random Total Protein Ur Random Sodium Ur Random Potassium 09/29/17 09/29/17 09/29/17 06:30 06:30 06:30 WBC RBC Hgb Hct MCV MCH MCHC RDW Plt Count MPV Neut % (Auto) Lymph % (Auto) [place] % (Auto) Eos % (Auto) Baso % (Auto) Neut # (Auto) Lymph # (Auto) [place] # (Auto) Eos # (Auto) Baso # (Auto) PT INR APTT Sodium Potassium Chloride Carbon Dioxide Anion Gap BUN Creatinine Est GFR ( Amer) Est GFR (Non-Af Amer) Random Glucose Hemoglobin A1c Calcium Phosphorus Total Bilirubin AST ALT Alkaline Phosphatase Troponin I NT-Pro-B Natriuret Pep Total Protein Albumin Globulin Albumin/Globulin Ratio Triglycerides Cholesterol LDL Cholesterol Direct HDL Cholesterol Thyroxine (T4) TSH 3rd Generation Urine Color Yellow Urine Clarity Clear Urine pH 6.0 Ur Specific [place] 1.008 Urine Protein 100 Urine Glucose (UA) Neg Urine Ketones Negative Urine Blood Negative Urine Nitrate Negative Urine Bilirubin Negative Urine Urobilinogen 0.2-1.0 Ur Leukocyte Esterase Neg Urine RBC (Auto) 1 Urine Microscopic WBC Ur Squamous Epith Cells Urine Bacteria Rare Hyaline Casts 0-2 Urine Osmolality Ur Random Creatinine 27.9 U Random Total Protein Ur Random Sodium 125 Ur Random Potassium 8.9 09/29/17 09/29/17 09/29/17 06:30 12:26 12:26 WBC RBC Hgb Hct MCV MCH MCHC RDW Plt Count MPV Neut % (Auto) Lymph % (Auto) [place] % (Auto) Eos % (Auto) Baso % (Auto) Neut # (Auto) Lymph # (Auto) [place] # (Auto) Eos # (Auto) Baso # (Auto) PT INR APTT Sodium Potassium Chloride Carbon Dioxide Anion Gap BUN Creatinine Est GFR ( Amer) Est GFR (Non-Af Amer) Random Glucose Hemoglobin A1c Calcium Phosphorus Total Bilirubin AST ALT Alkaline Phosphatase Troponin I NT-Pro-B Natriuret Pep Total Protein Albumin Globulin Albumin/Globulin Ratio Triglycerides Cholesterol LDL Cholesterol Direct HDL Cholesterol Thyroxine (T4) TSH 3rd Generation Urine Color Yellow Urine Clarity Cloudy Urine pH 5.0 Ur Specific [place] 1.010 Urine Protein 100 Urine Glucose (UA) Neg Urine Ketones Negative Urine Blood Negative Urine Nitrate Negative Urine Bilirubin Negative Urine Urobilinogen 0.2-1.0 Ur Leukocyte Esterase Small Urine RBC (Auto) 7 H Urine Microscopic WBC 8 H Ur Squamous Epith Cells < 1 Urine Bacteria Occ H Hyaline Casts >20 H Urine Osmolality 317 Ur Random Creatinine 150.9 U Random Total Protein 275.0 H Ur Random Sodium Ur Random Potassium 09/29/17 09/29/17 13:20 13:30 WBC RBC Hgb Hct MCV MCH MCHC RDW Plt Count MPV Neut % (Auto) Lymph % (Auto) [place] % (Auto) Eos % (Auto) Baso % (Auto) Neut # (Auto) Lymph # (Auto) [place] # (Auto) Eos # (Auto) Baso # (Auto) PT INR APTT Sodium Potassium Chloride Carbon Dioxide Anion Gap BUN Creatinine Est GFR ( Amer) Est GFR (Non-Af Amer) Random Glucose Hemoglobin A1c Calcium Phosphorus 3.2 Total Bilirubin AST ALT Alkaline Phosphatase Troponin I 0.0220 NT-Pro-B Natriuret Pep Total Protein Albumin Globulin Albumin/Globulin Ratio Triglycerides Cholesterol LDL Cholesterol Direct HDL Cholesterol Thyroxine (T4) TSH 3rd Generation Urine Color Urine Clarity Urine pH Ur Specific [place] Urine Protein Urine Glucose (UA) Urine Ketones Urine Blood Urine Nitrate Urine Bilirubin Urine Urobilinogen Ur Leukocyte Esterase Urine RBC (Auto) Urine Microscopic WBC Ur Squamous Epith Cells Urine Bacteria Hyaline Casts Urine Osmolality Ur Random Creatinine U Random Total Protein Ur Random Sodium Ur Random Potassium
[2017-09-30] MEDS: Albuterol-Ipratrop 3 mg / 0.5 (3 ml) UD INH SCH ×4 (01:12→19:13)
[2017-09-30] MEDS: Nitroglycerin 2% Ointment Foilpak UD TOP SCH ×4 (05:00→21:33)
[2017-09-30] MEDS: Insulin Lispro (humaLOG) 100 Units/ml Inj SC SCH ×4 (08:00→21:47)
[2017-09-30] MEDS: Multivitamin With Minerals Tab PO SCH (09:20)
[2017-09-30] MEDS: GlipiZIDE 2.5 mg SR Tab PO SCH ×2 (09:22→16:53)
--- NOTE | 2017-09-30 11:08 | CP.PCM.PN ---
Subjective - Date & Time of Evaluation Date of Evaluation: 09/30/17 Time of Evaluation: 11:07 - Subjective Subjective: Patient feeling much better Less shortness of breath No chest pain no nausea no vomiting Objective - Vital Signs/Intake and Output Vital Signs (last 24 hours): Temp Pulse Resp BP Pulse Ox 97.8 F 85 20 131/55 L 98 09/30/17 08:20 09/30/17 09:36 09/30/17 08:20 09/30/17 09:36 09/30/17 08:20 - Medications Medications: Current Medications Albuterol/Ipratropium (Duoneb 3 Mg/0.5 Mg (3 Ml) Ud) 3 ml INH RQ6 [facility] Last Admin: 09/30/17 07:19 Dose: 3 ml Ascorbic Acid (Vitamin C 500 Mg Tab) 500 mg PO DAILY [facility] Last Admin: 09/30/17 09:23 Dose: 500 mg Aspirin (Ecotrin) 81 mg PO DAILY [facility] Last Admin: 09/30/17 09:20 Dose: 81 mg Atorvastatin Calcium (Lipitor) 20 mg PO DAILY [facility] Last Admin: 09/30/17 09:23 Dose: 20 mg Clonidine HCl (Catapres) 0.1 mg PO Q8 [facility] Last Admin: 09/30/17 09:21 Dose: 0.1 mg Ergocalciferol (Drisdol 50,000 Intl Units Cap) 1 cap PO QWK [facility] Ferrous Sulfate (Feosol) 325 mg PO BID [facility] Last Admin: 09/30/17 09:20 Dose: 325 mg Furosemide (Lasix) 40 mg IVP Q12 [facility] Last Admin: 09/30/17 09:22 Dose: 40 mg Glipizide (Glucotrol Xl) 2.5 mg PO BID [facility] Last Admin: 09/30/17 09:22 Dose: 2.5 mg Heparin Sodium (Porcine) (Heparin) 5,000 units SC Q12 [facility] PRN Reason: Protocol Last Admin: 09/30/17 09:23 Dose: 5,000 units Hydralazine HCl (Apresoline) 50 mg PO Q8 [facility] Last Admin: 09/30/17 09:21 Dose: 50 mg Insulin Human Lispro (Humalog) 0 units SC ACHS [facility] PRN Reason: Protocol Last Admin: 09/30/17 08:00 Dose: Not Given Multivitamins/Minerals (Therapeutic-M Tab) 1 tab PO DAILY [facility] Last Admin: 09/30/17 09:20 Dose: 1 tab Nitroglycerin (Nitro-Bid 2% Oint) 1 ea TOP Q6 [facility] Last Admin: 09/30/17 09:36 Dose: 1 ea Zolpidem Tartrate (Ambien) 5 mg PO HS PRN PRN Reason: Insomnia - Labs Labs: 09/29/17 04:55 09/29/17 04:55 PT 12.0 Seconds (9.8-13.1) 09/28/17 22:57 INR 1.1 (0.9-1.2) 09/28/17 22:57 APTT 28.1 Seconds (25.6-37.1) 09/28/17 22:57 - Constitutional Appears: No Acute Distress - ENT Exam ENT Exam: Mucous Membranes Moist - Neck Exam Neck Exam: absent: Lymphadenopathy - Respiratory Exam Respiratory Exam: absent: Chest Wall Tenderness - Cardiovascular Exam Cardiovascular Exam: absent: Gallop, JVD, Rubs - GI/Abdominal Exam GI & Abdominal Exam: Soft, Normal Bowel Sounds - Extremities Exam Extremities Exam: absent: Calf Tenderness - Back Exam Back Exam: absent: CVA tenderness (L), CVA tenderness (R) - Neurological Exam Neurological Exam: Alert - Psychiatric Exam Psychiatric exam: Normal Affect - Skin Skin Exam: absent: Cyanosis Assessment and Plan (1) Chronic kidney disease, stage III (moderate) Assessment & Plan: Assessment and Plan: Chronic kidney disease stage III which has been stable. Most likely related to diabetic nephropathy. Diabetes mellitus type 2 Chronic hyperkalemia although potassium is okay because she has been taken her medication for the potassium 3 times a week Congestive heart failure as noted with the primary team Bilateral leg edema My recommendation Patient receiving treatment for CHF including intravenous Lasix gently monitor weight every day so she would not be over diuresed and intake and output Urinalysis and spot urine for protein to creatinine ratio pending Status: Acute (2) CHF (congestive heart failure) Status: Acute
--- NOTE | 2017-09-30 12:50 | CARD ---
APPROVED REPORT Date of service: 09/29/2017 EXAM: Two-dimensional and M-mode echocardiogram with Doppler and color Doppler. Other Information Quality : AverageRhythm : NSR Technically limited study due to Limited Echo Window INDICATION Congestive Heart Failure 2D DIMENSIONS IVSd1.34 (0.7-1.1cm)LVDd3.59 (3.9-5.9cm) LVOT Diameter2.07 (1.8-2.4cm)PWd1.55 (0.7-1.1cm) IVSs1.58 (0.8-1.2cm)LVDs2.12 (2.5-4.0cm) FS (%) 41.0 %PWs1.70 (0.8-1.2cm) M-Mode DIMENSIONS Left Atrium (MM)4.47 (2.5-4.0cm)Aortic Root2.76 (2.2-3.7cm) Aortic Cusp Exc.1.29 (1.5-2.0cm) Aortic Valve AoV Peak Taawltww981.3cm/sAoV VTI46.7cmAO Peak GR.25mmHg LVOT Peak Lzsxekfp725.3cm/sLVOT VTI28.86cmAO Mean GR.15mmHg KHOI (VMAX)1.89gm8TWF (VTI)1.01cm2 Mitral Valve MV E Xaxstfec195.8cm/sMV DECEL AIDQ363gxLZ A Pjtihfqs367.6cm/s MV SQT78caB/A ratio0.9MVA (PHT)3.08cm2 TDI Lateral E' Peak V9.21cm/sMedial E' Peak V9.29cm/sE/Lateral E'14.6 E/Medial E'14.5 Tricuspid Valve TR Peak Xrqxfjgl972mq/sRAP SQGNLZGJ52zhNkHT Peak Gr.34mmHg MHSS15aeBd LEFT VENTRICLE The left ventricle is normal size. There is mild to moderate concentric left ventricular hypertrophy. The left ventricular function is normal. The left ventricular ejection fraction is within the normal range. LVEF 65% There is normal LV segmental wall motion. Tissue Doppler imaging reveals abnormal left ventricular diastolic dysfunction. Transmitral Doppler flow pattern is Grade II-pseudonormal filling dynamics. No left ventricle thrombus noted on this study. There is no ventricular septal defect visualized. There is no left ventricular aneurysm. There is no mass noted in the left ventricle. RIGHT VENTRICLE The right ventricle is normal size. The right ventricle is mildly hypertrophied. The right ventricular systolic function is normal. ATRIA The left atrium size is normal. The right atrium size is normal. The interatrial septum is intact with no evidence for an atrial septal defect. AORTIC VALVE The aortic valve is calcified and displays decreased opening. No aortic regurgitation is present. There is mild valvular aortic stenosis. PEAK AORTIC GRADIENT 15MMHg khoi 2.02 CM2 There is no aortic valvular vegetation. MITRAL VALVE The mitral valve is normal in structure. There is no evidence of mitral valve prolapse. There is no mitral valve stenosis. Mitral regurgitation is mild. TRICUSPID VALVE The tricuspid valve is normal in structure. There is moderate tricuspid regurgitation. PEAK GRADIENT 34 MMHg (ABNORMAL) There is no tricuspid valve prolapse or vegetation. There is no tricuspid valve stenosis. PULMONIC VALVE The pulmonary valve is normal in structure. There is no pulmonic valvular regurgitation. There is no pulmonic valvular stenosis. GREAT VESSELS The aortic root is normal in size. The IVC is normal in size and collapses >50% with inspiration. PERICARDIAL EFFUSION The pericardium appears normal. There is no pleural effusion. <Conclusion> The aortic valve is calcified and displays decreased opening. There is mild valvular aortic stenosis. PEAK AORTIC GRADIENT 15MMHg khoi 2.02 CM2 The left ventricle is normal size. There is mild to moderate concentric left ventricular hypertrophy. The left ventricular function is normal. The left ventricular ejection fraction is within the normal range. LVEF 65% Tissue Doppler imaging reveals abnormal left ventricular diastolic dysfunction. Transmitral Doppler flow pattern is Grade II-pseudonormal filling dynamics. The aortic valve is calcified and displays decreased opening. There is mild valvular aortic stenosis. PEAK AORTIC GRADIENT 15MMHg khoi 2.02 CM2 Mitral regurgitation is mild. There is moderate tricuspid regurgitation. PEAK GRADIENT 34 MMHg (ABNORMAL)
--- NOTE | 2017-09-30 14:19 | CP.PCM.PN ---
Subjective - Date & Time of Evaluation Date of Evaluation: 09/30/17 Time of Evaluation: 12:10 - Subjective Subjective: F/U CHF Exac./COPD no SOB, no CUELLAR , no C/P Objective - Vital Signs/Intake and Output Vital Signs (last 24 hours): Temp Pulse Resp BP Pulse Ox 97.9 F 74 20 125/56 L 95 09/30/17 12:00 09/30/17 12:00 09/30/17 12:00 09/30/17 12:00 09/30/17 12:00 - Medications Medications: Current Medications Albuterol/Ipratropium (Duoneb 3 Mg/0.5 Mg (3 Ml) Ud) 3 ml INH RQ6 [facility] Last Admin: 09/30/17 13:31 Dose: 3 ml Ascorbic Acid (Vitamin C 500 Mg Tab) 500 mg PO DAILY [facility] Last Admin: 09/30/17 09:23 Dose: 500 mg Aspirin (Ecotrin) 81 mg PO DAILY [facility] Last Admin: 09/30/17 09:20 Dose: 81 mg Atorvastatin Calcium (Lipitor) 20 mg PO DAILY [facility] Last Admin: 09/30/17 09:23 Dose: 20 mg Clonidine HCl (Catapres) 0.1 mg PO Q8 [facility] Last Admin: 09/30/17 09:21 Dose: 0.1 mg Ergocalciferol (Drisdol 50,000 Intl Units Cap) 1 cap PO QWK [facility] Ferrous Sulfate (Feosol) 325 mg PO BID [facility] Last Admin: 09/30/17 09:20 Dose: 325 mg Furosemide (Lasix) 40 mg IVP Q12 [facility] Last Admin: 09/30/17 09:22 Dose: 40 mg Glipizide (Glucotrol Xl) 2.5 mg PO BID [facility] Last Admin: 09/30/17 09:22 Dose: 2.5 mg Heparin Sodium (Porcine) (Heparin) 5,000 units SC Q12 [facility] PRN Reason: Protocol Last Admin: 09/30/17 09:23 Dose: 5,000 units Hydralazine HCl (Apresoline) 50 mg PO Q8 [facility] Last Admin: 09/30/17 09:21 Dose: 50 mg Insulin Human Lispro (Humalog) 0 units SC ACHS [facility] PRN Reason: Protocol Last Admin: 09/30/17 12:19 Dose: 3 u Multivitamins/Minerals (Therapeutic-M Tab) 1 tab PO DAILY [facility] Last Admin: 09/30/17 09:20 Dose: 1 tab Nitroglycerin (Nitro-Bid 2% Oint) 1 ea TOP Q6 [facility] Last Admin: 09/30/17 09:36 Dose: 1 ea Zolpidem Tartrate (Ambien) 5 mg PO HS PRN PRN Reason: Insomnia - Labs Labs: 09/29/17 04:55 09/29/17 04:55 PT 12.0 Seconds (9.8-13.1) 09/28/17 22:57 INR 1.1 (0.9-1.2) 09/28/17 22:57 APTT 28.1 Seconds (25.6-37.1) 09/28/17 22:57 - Constitutional Appears: No Acute Distress - Head Exam Head Exam: NORMAL INSPECTION - Eye Exam Eye Exam: PERRL - ENT Exam ENT Exam: Normal Exam - Neck Exam Neck Exam: Normal Inspection - Respiratory Exam Respiratory Exam: Decreased Breath Sounds (at bases) - Cardiovascular Exam Cardiovascular Exam: REGULAR RHYTHM, Murmur (systolic) - GI/Abdominal Exam GI & Abdominal Exam: Soft, Normal Bowel Sounds - Extremities Exam Extremities Exam: Pedal Edema Additional comments: Pitting 2+ edema BLE, chronic distal skin changes - Back Exam Back Exam: NORMAL INSPECTION - Neurological Exam Neurological Exam: Alert, CN II-XII Intact. absent: Motor Sensory Deficit Additional comments: Forgetful at times, follows commands, No focal motor/sensory deficit. - Psychiatric Exam Psychiatric exam: Normal Affect - Skin Skin Exam: Dry, Warm Assessment and Plan (1) CHF (congestive heart failure) Status: Acute (2) COPD (chronic obstructive pulmonary disease) Status: Chronic (3) CKD (chronic kidney disease) Status: Chronic (4) HTN (hypertension) Status: Chronic (5) Type II diabetes mellitus Status: Chronic - Assessment and Plan (Free Text) Plan: ECHO 65%, mils , for Myocardial Perfusion Scan, continue Lasix and rest of treatment
[2017-09-30 14:28] LABS: HEMOGLOBIN 9.2 g/dL (12.0-16.0); MEAN CELL VOLUME 88.5 fl (81.0-99.0); MEAN CORPUSCULAR HEMOGLOBIN 28.6 pg (27.0-31.0); MEAN CORPUSCULAR HGB CONC 32.4 g/dL (33.0-37.0); RBC 3.22 Mil/uL (3.80-5.20); RED CELL DISTRIBUTION WIDTH 15.4 % (11.5-14.5); WHITE BLOOD COUNT 11.6 K/uL (4.8-10.8)
[2017-09-30 14:53] LABS: CALCIUM 8.4 mg/dL (8.4-10.2)
[2017-09-30] MEDS ORDERED: Artificial Tears Opht Soln OU PRN (15:04)
--- NOTE | 2017-09-30 15:29 | CARD ---
APPROVED REPORT Date of service: 09/28/2017 EKG Measurement Heart [id number] [id number] <Conclusion> Sinus tachycardia Nonspecific ST and T wave abnormality Possible Anterior wall Myocardial infarction age undetermined. Abnormal ECG
--- NOTE | 2017-09-30 18:09 | CP.PCM.PN ---
Subjective - Date & Time of Evaluation Date of Evaluation: 09/30/17 Time of Evaluation: 18:06 - Subjective Subjective: echo reviewed edema improving Objective - Vital Signs/Intake and Output Vital Signs (last 24 hours): Temp Pulse Resp BP Pulse Ox 97.7 F 80 20 130/56 L 98 09/30/17 16:47 09/30/17 16:56 09/30/17 16:47 09/30/17 16:56 09/30/17 16:47 - Medications Medications: Current Medications Albuterol/Ipratropium (Duoneb 3 Mg/0.5 Mg (3 Ml) Ud) 3 ml INH RQ6 [facility] Last Admin: 09/30/17 13:31 Dose: 3 ml Artificial Tears (Artificial Tears) 2 drop OU Q4 PRN PRN Reason: Dry eyes Ascorbic Acid (Vitamin C 500 Mg Tab) 500 mg PO DAILY [facility] Last Admin: 09/30/17 09:23 Dose: 500 mg Aspirin (Ecotrin) 81 mg PO DAILY [facility] Last Admin: 09/30/17 09:20 Dose: 81 mg Atorvastatin Calcium (Lipitor) 20 mg PO DAILY [facility] Last Admin: 09/30/17 09:23 Dose: 20 mg Clonidine HCl (Catapres) 0.1 mg PO Q8 [facility] Last Admin: 09/30/17 16:52 Dose: 0.1 mg Ergocalciferol (Drisdol 50,000 Intl Units Cap) 1 cap PO QWK [facility] Ferrous Sulfate (Feosol) 325 mg PO BID [facility] Last Admin: 09/30/17 16:53 Dose: 325 mg Furosemide (Lasix) 40 mg IVP Q12 [facility] Last Admin: 09/30/17 09:22 Dose: 40 mg Glipizide (Glucotrol Xl) 2.5 mg PO BID [facility] Last Admin: 09/30/17 16:53 Dose: 2.5 mg Heparin Sodium (Porcine) (Heparin) 5,000 units SC Q12 [facility] PRN Reason: Protocol Last Admin: 09/30/17 09:23 Dose: 5,000 units Hydralazine HCl (Apresoline) 50 mg PO Q8 [facility] Last Admin: 09/30/17 16:52 Dose: 50 mg Insulin Human Lispro (Humalog) 0 units SC ACHS [facility] PRN Reason: Protocol Last Admin: 09/30/17 16:53 Dose: 3 u Multivitamins/Minerals (Therapeutic-M Tab) 1 tab PO DAILY [facility] Last Admin: 09/30/17 09:20 Dose: 1 tab Nitroglycerin (Nitro-Bid 2% Oint) 1 ea TOP Q6 [facility] Last Admin: 09/30/17 16:56 Dose: 1 ea Zolpidem Tartrate (Ambien) 5 mg PO HS PRN PRN Reason: Insomnia - Labs Labs: 09/30/17 14:10 09/30/17 04:00 PT 12.0 Seconds (9.8-13.1) 09/28/17 22:57 INR 1.1 (0.9-1.2) 09/28/17 22:57 APTT 28.1 Seconds (25.6-37.1) 09/28/17 22:57 - Constitutional Appears: Well - Head Exam Head Exam: ATRAUMATIC, NORMAL INSPECTION, NORMOCEPHALIC - Eye Exam Eye Exam: EOMI, Normal appearance, PERRL Pupil Exam: NORMAL ACCOMODATION, PERRL - ENT Exam ENT Exam: Mucous Membranes Moist, Normal Exam - Neck Exam Neck Exam: Full ROM, Normal Inspection. absent: Lymphadenopathy - Respiratory Exam Respiratory Exam: Clear to Ausculation Bilateral, NORMAL BREATHING PATTERN - Cardiovascular Exam Cardiovascular Exam: REGULAR RHYTHM, +S1, +S2. absent: Murmur - GI/Abdominal Exam GI & Abdominal Exam: Soft, Normal Bowel Sounds. absent: Tenderness - Extremities Exam Extremities Exam: Full ROM, Normal Capillary Refill, Normal Inspection. absent : Joint Swelling, Pedal Edema - Back Exam Back Exam: NORMAL INSPECTION - Neurological Exam Neurological Exam: Alert, Awake, CN II-XII Intact, Normal Gait, Oriented x3 - Psychiatric Exam Psychiatric exam: Normal Affect, Normal Mood - Skin Skin Exam: Dry, Intact, Normal Color, Warm Assessment and Plan (1) CHF (congestive heart failure) Assessment & Plan: plan for stress test cr 2.4 dc lasix hydralazine add BB mild , mod TR Status: Acute (2) COPD (chronic obstructive pulmonary disease) Status: Chronic (3) HTN (hypertension) Assessment & Plan: hydralazine and clonidine ( home meds ) add coreg Status: Chronic (4) High cholesterol Assessment & Plan: statins Status: Chronic
[2017-10-01] MEDS: Albuterol-Ipratrop 3 mg / 0.5 (3 ml) UD INH SCH ×4 (01:26→19:48)
[2017-10-01] MEDS: Nitroglycerin 2% Ointment Foilpak UD TOP SCH ×4 (04:45→22:34)
[2017-10-01] MEDS: GlipiZIDE 2.5 mg SR Tab PO SCH ×2 (08:44→16:22)
[2017-10-01] MEDS: Insulin Lispro (humaLOG) 100 Units/ml Inj SC SCH ×4 (08:46→22:28)
[2017-10-01] MEDS ORDERED: Sod Polystyrene Sulf 15 gm/60 ml Susp PO SCH (09:00)
--- NOTE | 2017-10-01 10:40 | CP.PCM.PN ---
Subjective - Date & Time of Evaluation Date of Evaluation: 10/01/17 Time of Evaluation: 10:38 - Subjective Subjective: Patient awake and conscious feeling much better and decrease leg edema/\. No chest pain no nausea no vomiting Objective - Vital Signs/Intake and Output Vital Signs (last 24 hours): Temp Pulse Resp BP Pulse Ox 98.2 F 69 20 146/65 96 10/01/17 09:52 10/01/17 10:35 10/01/17 08:00 10/01/17 10:35 10/01/17 08:00 - Medications Medications: Current Medications Albuterol/Ipratropium (Duoneb 3 Mg/0.5 Mg (3 Ml) Ud) 3 ml INH RQ6 [facility] Last Admin: 10/01/17 08:33 Dose: 3 ml Artificial Tears (Artificial Tears) 2 drop OU Q4 PRN PRN Reason: Dry eyes Ascorbic Acid (Vitamin C 500 Mg Tab) 500 mg PO DAILY [facility] Last Admin: 09/30/17 09:23 Dose: 500 mg Aspirin (Ecotrin) 81 mg PO DAILY [facility] Last Admin: 09/30/17 09:20 Dose: 81 mg Atorvastatin Calcium (Lipitor) 20 mg PO DAILY [facility] Last Admin: 09/30/17 09:23 Dose: 20 mg Clonidine HCl (Catapres) 0.1 mg PO Q8 [facility] Last Admin: 10/01/17 08:42 Dose: Not Given Ergocalciferol (Drisdol 50,000 Intl Units Cap) 1 cap PO QWK [facility] Ferrous Sulfate (Feosol) 325 mg PO BID [facility] Last Admin: 10/01/17 08:43 Dose: Not Given Glipizide (Glucotrol Xl) 2.5 mg PO BID [facility] Last Admin: 10/01/17 08:44 Dose: Not Given Heparin Sodium (Porcine) (Heparin) 5,000 units SC Q12 [facility] PRN Reason: Protocol Last Admin: 10/01/17 08:46 Dose: Not Given Hydralazine HCl (Apresoline) 50 mg PO Q8 [facility] Last Admin: 10/01/17 08:41 Dose: Not Given Insulin Human Lispro (Humalog) 0 units SC ACHS [facility] PRN Reason: Protocol Last Admin: 10/01/17 08:46 Dose: Not Given Multivitamins/Minerals (Therapeutic-M Tab) 1 tab PO DAILY [facility] Last Admin: 09/30/17 09:20 Dose: 1 tab Nitroglycerin (Nitro-Bid 2% Oint) 1 ea TOP Q6 [facility] Last Admin: 10/01/17 10:35 Dose: Not Given Zolpidem Tartrate (Ambien) 5 mg PO HS PRN PRN Reason: Insomnia - Labs Labs: 09/30/17 14:10 09/30/17 04:00 PT 12.0 Seconds (9.8-13.1) 09/28/17 22:57 INR 1.1 (0.9-1.2) 09/28/17 22:57 APTT 28.1 Seconds (25.6-37.1) 09/28/17 22:57 - Constitutional Appears: No Acute Distress - ENT Exam ENT Exam: Mucous Membranes Dry - Neck Exam Neck Exam: absent: Lymphadenopathy - Respiratory Exam Respiratory Exam: NORMAL BREATHING PATTERN. absent: Chest Wall Tenderness - Extremities Exam Extremities Exam: absent: Calf Tenderness - Back Exam Back Exam: absent: CVA tenderness (L), CVA tenderness (R) - Neurological Exam Neurological Exam: Alert - Psychiatric Exam Psychiatric exam: Normal Mood - Skin Skin Exam: Dry. absent: Cyanosis Assessment and Plan (1) Chronic kidney disease, stage III (moderate) Assessment & Plan: acute kidney injury superimposed on chronic kidney disease stage III. Serum creatinine has risen rapidly 2.3,probably from diuretics . CK D stage III which has been underlying the problem Diabetic nephropathy history Hypertension appears to be controlled Recommendation and plan leg edema subsided DC Lasix for a few days monitor weight and monitor kidney function along with cardiac status Status: Acute (2) CHF (congestive heart failure) Status: Acute
[2017-10-01] MEDS ORDERED: Glucagon Recombinant 1 mg Inj IM PRN (14:04)
[2017-10-01] MEDS ORDERED: Dextrose 50% SYRINGE Inj (50 ml) IV PRN (14:04)
--- NOTE | 2017-10-01 14:14 | CP.PCM.PN ---
Subjective - Date & Time of Evaluation Date of Evaluation: 10/01/17 Time of Evaluation: 11:10 - Subjective Subjective: Patient seen and evaluated at bedside. Patient feels better. Reports less SOB. NPO after midnight for nuclear stress test by cardiology. Objective - Vital Signs/Intake and Output Vital Signs (last 24 hours): Temp Pulse Resp BP Pulse Ox 98.1 F 80 20 145/65 99 10/01/17 12:38 10/01/17 12:38 10/01/17 12:38 10/01/17 12:38 10/01/17 12:38 - Medications Medications: Current Medications Albuterol/Ipratropium (Duoneb 3 Mg/0.5 Mg (3 Ml) Ud) 3 ml INH RQ6 [facility] Last Admin: 10/01/17 14:05 Dose: 3 ml Artificial Tears (Artificial Tears) 2 drop OU Q4 PRN PRN Reason: Dry eyes Ascorbic Acid (Vitamin C 500 Mg Tab) 500 mg PO DAILY [facility] Last Admin: 09/30/17 09:23 Dose: 500 mg Aspirin (Ecotrin) 81 mg PO DAILY [facility] Last Admin: 09/30/17 09:20 Dose: 81 mg Atorvastatin Calcium (Lipitor) 20 mg PO DAILY [facility] Last Admin: 09/30/17 09:23 Dose: 20 mg Clonidine HCl (Catapres) 0.1 mg PO Q8 [facility] Last Admin: 10/01/17 08:42 Dose: Not Given Dextrose (Dextrose 50% Inj) 0 ml IV STAT PRN; Protocol PRN Reason: Hypoglycemia Protocol Dextrose (Glutose 15) 0 gm PO ONCE PRN; Protocol PRN Reason: Hypoglycemia Protocol Ergocalciferol (Drisdol 50,000 Intl Units Cap) 1 cap PO QWK [facility] Ferrous Sulfate (Feosol) 325 mg PO BID [facility] Last Admin: 10/01/17 08:43 Dose: Not Given Glipizide (Glucotrol Xl) 2.5 mg PO BID [facility] Last Admin: 10/01/17 08:44 Dose: Not Given Glucagon (Glucagen Diagnostic Kit) 0 mg IM STAT PRN; Protocol PRN Reason: Hypoglycemia Protocol Heparin Sodium (Porcine) (Heparin) 5,000 units SC Q12 [facility] PRN Reason: Protocol Last Admin: 10/01/17 08:46 Dose: Not Given Hydralazine HCl (Apresoline) 50 mg PO Q8 [facility] Last Admin: 10/01/17 08:41 Dose: Not Given Insulin Detemir (Levemir) 8 units SC HS [facility] Insulin Human Lispro (Humalog) 0 units SC ACHS [facility] PRN Reason: Protocol Last Admin: 10/01/17 08:46 Dose: Not Given Insulin Lispro Protam/Lispro Human (Humalog Mix 75/25) 6 units SC BIDAC [facility] Multivitamins/Minerals (Therapeutic-M Tab) 1 tab PO DAILY [facility] Last Admin: 09/30/17 09:20 Dose: 1 tab Nitroglycerin (Nitro-Bid 2% Oint) 1 ea TOP Q6 [facility] Last Admin: 10/01/17 10:35 Dose: Not Given Zolpidem Tartrate (Ambien) 5 mg PO HS PRN PRN Reason: Insomnia - Labs Labs: 09/30/17 14:10 09/30/17 04:00 PT 12.0 Seconds (9.8-13.1) 09/28/17 22:57 INR 1.1 (0.9-1.2) 09/28/17 22:57 APTT 28.1 Seconds (25.6-37.1) 09/28/17 22:57 - Constitutional Appears: Non-toxic, No Acute Distress - Head Exam Head Exam: ATRAUMATIC, NORMOCEPHALIC - Eye Exam Eye Exam: Normal appearance - ENT Exam ENT Exam: Mucous Membranes Dry - Respiratory Exam Respiratory Exam: NORMAL BREATHING PATTERN. absent: Respiratory Distress - Cardiovascular Exam Cardiovascular Exam: REGULAR RHYTHM, +S1, +S2 - GI/Abdominal Exam GI & Abdominal Exam: Soft, Normal Bowel Sounds. absent: Distended, Guarding, Rigid, Tenderness - Extremities Exam Extremities Exam: absent: Calf Tenderness - Neurological Exam Neurological Exam: Alert, Awake Additional comments: Ox2 - Skin Skin Exam: Dry, Intact, Normal Color, Warm Assessment and Plan (1) CHF (congestive heart failure) Status: Acute (2) COPD (chronic obstructive pulmonary disease) Status: Chronic (3) CKD (chronic kidney disease) Status: Chronic (4) HTN (hypertension) Status: Chronic (5) Type II diabetes mellitus Status: Chronic - Assessment and Plan (Free Text) Plan: Going for nuclear stress test today, f/u results Echo results reviewed, Diastolic CHF Carotid US reviewed discontinue lasix, creatinine 2.4 Noted BSL elevated will start Novolin Mix 6 units BID, before breakfast, and dinner will start Levemir 8 units HS Hypoglycemic protocol c/w home BP meds Add coreg as per Cardiology recommendations Cardiology consult appreciated nephrology consult appreciated
[2017-10-01] MEDS ORDERED: Artificial Tears Opht Soln OU PRN (14:15)
[2017-10-01] MEDS: Multivitamin With Minerals Tab PO SCH (14:39)
[2017-10-01] MEDS: Insulin Lispro Mix 75/25 100 units/ml (HumaLog) 10ml SC SCH (16:23)
--- NOTE | 2017-10-01 19:29 | CP.PCM.PN ---
Subjective - Date & Time of Evaluation Date of Evaluation: 10/01/17 Time of Evaluation: 19:29 - Subjective Subjective: stress test abnormal plan for LHCx wednesday Objective - Vital Signs/Intake and Output Vital Signs (last 24 hours): Temp Pulse Resp BP Pulse Ox 98.6 F 80 18 137/58 L 100 10/01/17 16:52 10/01/17 16:52 10/01/17 16:52 10/01/17 16:52 10/01/17 16:52 Intake and Output: 10/01/17 10/02/17 18:59 06:59 Intake Total 600 Output Total 300 Balance 300 - Medications Medications: Current Medications Albuterol/Ipratropium (Duoneb 3 Mg/0.5 Mg (3 Ml) Ud) 3 ml INH RQ6 REPLACED BY [facility] Last Admin: 10/01/17 14:05 Dose: 3 ml Artificial Tears (Artificial Tears) 2 drop OU Q4 PRN PRN Reason: Dry eyes Ascorbic Acid (Vitamin C 500 Mg Tab) 500 mg PO DAILY REPLACED BY [facility] Last Admin: 10/01/17 14:39 Dose: 500 mg Aspirin (Ecotrin) 81 mg PO DAILY REPLACED BY [facility] Last Admin: 10/01/17 16:21 Dose: 81 mg Atorvastatin Calcium (Lipitor) 20 mg PO DAILY REPLACED BY [facility] Last Admin: 10/01/17 14:40 Dose: 20 mg Carvedilol (Coreg) 3.125 mg PO Q12 REPLACED BY [facility] Clonidine HCl (Catapres) 0.1 mg PO Q8 REPLACED BY [facility] Last Admin: 10/01/17 16:26 Dose: 0.1 mg Dextrose (Dextrose 50% Inj) 0 ml IV STAT PRN; Protocol PRN Reason: Hypoglycemia Protocol Dextrose (Glutose 15) 0 gm PO ONCE PRN; Protocol PRN Reason: Hypoglycemia Protocol Ergocalciferol (Drisdol 50,000 Intl Units Cap) 1 cap PO QWK REPLACED BY [facility] Ferrous Sulfate (Feosol) 325 mg PO BID REPLACED BY [facility] Last Admin: 10/01/17 16:22 Dose: 325 mg Glipizide (Glucotrol Xl) 2.5 mg PO BID REPLACED BY [facility] Last Admin: 10/01/17 16:22 Dose: 2.5 mg Glucagon (Glucagen Diagnostic Kit) 0 mg IM STAT PRN; Protocol PRN Reason: Hypoglycemia Protocol Heparin Sodium (Porcine) (Heparin) 5,000 units SC Q12 [facility] PRN Reason: Protocol Last Admin: 10/01/17 08:46 Dose: Not Given Hydralazine HCl (Apresoline) 50 mg PO Q8 REPLACED BY [facility] Last Admin: 10/01/17 16:20 Dose: 50 mg Insulin Detemir (Levemir) 8 units SC HS [facility] Insulin Human Lispro (Humalog) 0 units SC ACHS [facility] PRN Reason: Protocol Last Admin: 10/01/17 16:24 Dose: 4 u Insulin Lispro Protam/Lispro Human (Humalog Mix 75/25) 6 units SC BIDAC [facility] Last Admin: 10/01/17 16:23 Dose: 6 units Multivitamins/Minerals (Therapeutic-M Tab) 1 tab PO DAILY REPLACED BY [facility] Last Admin: 10/01/17 14:39 Dose: 1 tab Nitroglycerin (Nitro-Bid 2% Oint) 1 ea TOP Q6 REPLACED BY [facility] Last Admin: 10/01/17 16:22 Dose: 1 ea Zolpidem Tartrate (Ambien) 5 mg PO HS PRN PRN Reason: Insomnia - Labs Labs: 09/30/17 14:10 09/30/17 04:00 PT 12.0 Seconds (9.8-13.1) 09/28/17 22:57 INR 1.1 (0.9-1.2) 09/28/17 22:57 APTT 28.1 Seconds (25.6-37.1) 09/28/17 22:57 - Constitutional Appears: Well - Head Exam Head Exam: ATRAUMATIC, NORMAL INSPECTION, NORMOCEPHALIC - Eye Exam Eye Exam: EOMI, Normal appearance, PERRL Pupil Exam: NORMAL ACCOMODATION, PERRL - ENT Exam ENT Exam: Mucous Membranes Moist, Normal Exam - Neck Exam Neck Exam: Full ROM, Normal Inspection. absent: Lymphadenopathy - Respiratory Exam Respiratory Exam: Clear to Ausculation Bilateral, NORMAL BREATHING PATTERN - Cardiovascular Exam Cardiovascular Exam: REGULAR RHYTHM, +S1, +S2. absent: Murmur - GI/Abdominal Exam GI & Abdominal Exam: Soft, Normal Bowel Sounds. absent: Tenderness - Extremities Exam Extremities Exam: Full ROM, Normal Capillary Refill, Normal Inspection. absent : Joint Swelling, Pedal Edema - Back Exam Back Exam: NORMAL INSPECTION - Neurological Exam Neurological Exam: Alert, Awake, CN II-XII Intact, Normal Gait, Oriented x3 - Psychiatric Exam Psychiatric exam: Normal Affect, Normal Mood - Skin Skin Exam: Dry, Intact, Normal Color, Warm Assessment and Plan (1) CHF (congestive heart failure) Assessment & Plan: ischemic abnormal stress test plan for LHCx on Wednesday Status: Acute (2) COPD (chronic obstructive pulmonary disease) Status: Chronic (3) HTN (hypertension) Status: Chronic (4) High cholesterol Status: Chronic
[2017-10-01] MEDS: Insulin Detemir 100 Units/ml Inj SC SCH (22:29)
[2017-10-02] MEDS: Albuterol-Ipratrop 3 mg / 0.5 (3 ml) UD INH SCH ×4 (01:10→19:12)
[2017-10-02] MEDS: Nitroglycerin 2% Ointment Foilpak UD TOP SCH ×4 (05:00→21:25)
[2017-10-02] MEDS: Insulin Lispro (humaLOG) 100 Units/ml Inj SC SCH ×4 (06:55→21:17)
[2017-10-02] MEDS: Ergocalciferol 50,000 Intl Units Cap PO SCH (08:51)
[2017-10-02] MEDS: Multivitamin With Minerals Tab PO SCH (08:51)
[2017-10-02] MEDS: Insulin Lispro Mix 75/25 100 units/ml (HumaLog) 10ml SC SCH ×2 (08:58→16:39)
[2017-10-02] MEDS: GlipiZIDE 2.5 mg SR Tab PO SCH ×2 (12:39→16:37)
--- NOTE | 2017-10-02 14:11 | CP.PCM.PN ---
Subjective - Date & Time of Evaluation Date of Evaluation: 10/02/17 Time of Evaluation: 13:10 - Subjective Subjective: F/U CHF/COPD no AD, no SOB, no C/P Objective - Vital Signs/Intake and Output Vital Signs (last 24 hours): Temp Pulse Resp BP Pulse Ox 98.1 F 63 20 156/66 H 100 10/02/17 13:00 10/02/17 13:00 10/02/17 13:00 10/02/17 13:00 10/02/17 13:00 - Medications Medications: Current Medications Albuterol/Ipratropium (Duoneb 3 Mg/0.5 Mg (3 Ml) Ud) 3 ml INH RQ6 [facility] Last Admin: 10/02/17 13:22 Dose: 3 ml Artificial Tears (Artificial Tears) 2 drop OU Q4 PRN PRN Reason: Dry eyes Ascorbic Acid (Vitamin C 500 Mg Tab) 500 mg PO DAILY [facility] Last Admin: 10/02/17 08:51 Dose: 500 mg Aspirin (Ecotrin) 81 mg PO DAILY [facility] Last Admin: 10/02/17 08:51 Dose: 81 mg Atorvastatin Calcium (Lipitor) 20 mg PO DAILY [facility] Last Admin: 10/02/17 08:51 Dose: 20 mg Carvedilol (Coreg) 3.125 mg PO Q12 [facility] Last Admin: 10/02/17 08:51 Dose: 3.125 mg Clonidine HCl (Catapres) 0.1 mg PO Q8 [facility] Last Admin: 10/02/17 08:55 Dose: 0.1 mg Dextrose (Dextrose 50% Inj) 0 ml IV STAT PRN; Protocol PRN Reason: Hypoglycemia Protocol Dextrose (Glutose 15) 0 gm PO ONCE PRN; Protocol PRN Reason: Hypoglycemia Protocol Ergocalciferol (Drisdol 50,000 Intl Units Cap) 1 cap PO QWK [facility] Last Admin: 10/02/17 08:51 Dose: 1 cap Ferrous Sulfate (Feosol) 325 mg PO BID [facility] Last Admin: 10/02/17 08:52 Dose: 325 mg Glipizide (Glucotrol Xl) 2.5 mg PO BID [facility] Last Admin: 10/02/17 12:39 Dose: 2.5 mg Glucagon (Glucagen Diagnostic Kit) 0 mg IM STAT PRN; Protocol PRN Reason: Hypoglycemia Protocol Heparin Sodium (Porcine) (Heparin) 5,000 units SC Q12 [facility] PRN Reason: Protocol Last Admin: 10/02/17 08:50 Dose: 5,000 units Hydralazine HCl (Apresoline) 50 mg PO Q8 [facility] Last Admin: 10/02/17 08:52 Dose: 50 mg Insulin Detemir (Levemir) 8 units SC HS [facility] Last Admin: 10/01/17 22:29 Dose: 8 u Insulin Human Lispro (Humalog) 0 units SC ACHS [facility] PRN Reason: Protocol Last Admin: 10/02/17 12:39 Dose: Not Given Insulin Lispro Protam/Lispro Human (Humalog Mix 75/25) 6 units SC BIDAC [facility] Last Admin: 10/02/17 08:58 Dose: 6 units Multivitamins/Minerals (Therapeutic-M Tab) 1 tab PO DAILY [facility] Last Admin: 10/02/17 08:51 Dose: 1 tab Nitroglycerin (Nitro-Bid 2% Oint) 1 ea TOP Q6 [facility] Last Admin: 10/02/17 12:49 Dose: 1 ea Zolpidem Tartrate (Ambien) 5 mg PO HS PRN PRN Reason: Insomnia - Labs Labs: 09/30/17 14:10 09/30/17 04:00 PT 12.0 Seconds (9.8-13.1) 09/28/17 22:57 INR 1.1 (0.9-1.2) 09/28/17 22:57 APTT 28.1 Seconds (25.6-37.1) 09/28/17 22:57 - Constitutional Appears: No Acute Distress - Head Exam Head Exam: NORMAL INSPECTION - Eye Exam Eye Exam: PERRL - ENT Exam ENT Exam: Normal Exam - Neck Exam Neck Exam: Normal Inspection - Respiratory Exam Respiratory Exam: Decreased Breath Sounds (at bases) - Cardiovascular Exam Cardiovascular Exam: REGULAR RHYTHM, Murmur - GI/Abdominal Exam GI & Abdominal Exam: Soft, Normal Bowel Sounds - Extremities Exam Extremities Exam: Pedal Edema, Tenderness (knees) Additional comments: Pitting + edema BLE - Back Exam Back Exam: tenderness - Neurological Exam Neurological Exam: Alert Additional comments: Forgetful at times, follows commands, no focal motor/sensory deficit. - Psychiatric Exam Psychiatric exam: Normal Affect - Skin Skin Exam: Warm Assessment and Plan (1) CHF (congestive heart failure) Status: Acute (2) COPD (chronic obstructive pulmonary disease) Status: Chronic (3) CKD (chronic kidney disease) Status: Chronic (4) HTN (hypertension) Status: Chronic (5) Type II diabetes mellitus Status: Chronic - Assessment and Plan (Free Text) Plan: continue Coreg, Catapres, Hydralazine,NitroBid,Tx CHDF, HTN, DuoNeb Tx COPD, STT abnormal , LHCX Wednesday,
--- NOTE | 2017-10-02 16:22 | CP.PCM.PN ---
Subjective - Date & Time of Evaluation Date of Evaluation: 10/02/17 Time of Evaluation: 16:18 - Subjective Subjective: renal follow up note no events overnight vitals reviewed heent normal op moist no jvd [id number] resent no resp distress skin normal abd soft edema 2+ ao times 3 A&P:Alma Delia/CKD/edema/dm no labs today agree withholding lasix monitor I&Os check a cmp tomorrow Objective - Vital Signs/Intake and Output Vital Signs (last 24 hours): Temp Pulse Resp BP Pulse Ox 98.1 F 63 20 156/66 H 100 10/02/17 13:00 10/02/17 13:00 10/02/17 13:00 10/02/17 13:00 10/02/17 13:00 - Medications Medications: Current Medications Albuterol/Ipratropium (Duoneb 3 Mg/0.5 Mg (3 Ml) Ud) 3 ml INH RQ6 [facility] Last Admin: 10/02/17 13:22 Dose: 3 ml Artificial Tears (Artificial Tears) 2 drop OU Q4 PRN PRN Reason: Dry eyes Ascorbic Acid (Vitamin C 500 Mg Tab) 500 mg PO DAILY [facility] Last Admin: 10/02/17 08:51 Dose: 500 mg Aspirin (Ecotrin) 81 mg PO DAILY [facility] Last Admin: 10/02/17 08:51 Dose: 81 mg Atorvastatin Calcium (Lipitor) 20 mg PO DAILY [facility] Last Admin: 10/02/17 08:51 Dose: 20 mg Carvedilol (Coreg) 3.125 mg PO Q12 [facility] Last Admin: 10/02/17 08:51 Dose: 3.125 mg Clonidine HCl (Catapres) 0.1 mg PO Q8 [facility] Last Admin: 10/02/17 08:55 Dose: 0.1 mg Dextrose (Dextrose 50% Inj) 0 ml IV STAT PRN; Protocol PRN Reason: Hypoglycemia Protocol Dextrose (Glutose 15) 0 gm PO ONCE PRN; Protocol PRN Reason: Hypoglycemia Protocol Ergocalciferol (Drisdol 50,000 Intl Units Cap) 1 cap PO QWK [facility] Last Admin: 10/02/17 08:51 Dose: 1 cap Ferrous Sulfate (Feosol) 325 mg PO BID [facility] Last Admin: 10/02/17 08:52 Dose: 325 mg Glipizide (Glucotrol Xl) 2.5 mg PO BID [facility] Last Admin: 10/02/17 12:39 Dose: 2.5 mg Glucagon (Glucagen Diagnostic Kit) 0 mg IM STAT PRN; Protocol PRN Reason: Hypoglycemia Protocol Heparin Sodium (Porcine) (Heparin) 5,000 units SC Q12 [facility] PRN Reason: Protocol Last Admin: 10/02/17 08:50 Dose: 5,000 units Hydralazine HCl (Apresoline) 50 mg PO Q8 [facility] Last Admin: 10/02/17 08:52 Dose: 50 mg Insulin Detemir (Levemir) 8 units SC HS [facility] Last Admin: 10/01/17 22:29 Dose: 8 u Insulin Human Lispro (Humalog) 0 units SC ACHS [facility] PRN Reason: Protocol Last Admin: 10/02/17 12:39 Dose: Not Given Insulin Lispro Protam/Lispro Human (Humalog Mix 75/25) 6 units SC BIDAC [facility] Last Admin: 10/02/17 08:58 Dose: 6 units Multivitamins/Minerals (Therapeutic-M Tab) 1 tab PO DAILY [facility] Last Admin: 10/02/17 08:51 Dose: 1 tab Nitroglycerin (Nitro-Bid 2% Oint) 1 ea TOP Q6 [facility] Last Admin: 10/02/17 12:49 Dose: 1 ea Zolpidem Tartrate (Ambien) 5 mg PO HS PRN PRN Reason: Insomnia - Labs Labs: 09/30/17 14:10 09/30/17 04:00 PT 12.0 Seconds (9.8-13.1) 09/28/17 22:57 INR 1.1 (0.9-1.2) 09/28/17 22:57 APTT 28.1 Seconds (25.6-37.1) 09/28/17 22:57
[2017-10-02] MEDS: Insulin Detemir 100 Units/ml Inj SC SCH (21:18)
[2017-10-03] MEDS: Albuterol-Ipratrop 3 mg / 0.5 (3 ml) UD INH SCH ×3 (01:20→19:16)
[2017-10-03] MEDS: Nitroglycerin 2% Ointment Foilpak UD TOP SCH ×4 (05:00→21:47)
[2017-10-03] MEDS: Multivitamin With Minerals Tab PO SCH (09:43)
[2017-10-03] MEDS: GlipiZIDE 2.5 mg SR Tab PO SCH ×2 (09:46→16:34)
[2017-10-03] MEDS: Insulin Lispro (humaLOG) 100 Units/ml Inj SC SCH ×4 (09:48→22:01)
[2017-10-03] MEDS: Insulin Lispro Mix 75/25 100 units/ml (HumaLog) 10ml SC SCH ×2 (09:49→16:35)
--- NOTE | 2017-10-03 14:53 | CP.PCM.PN ---
Subjective - Date & Time of Evaluation Date of Evaluation: 10/03/17 Time of Evaluation: 12:40 - Subjective Subjective: F/U CHF/COPD no SOB,no C/P Objective - Vital Signs/Intake and Output Vital Signs (last 24 hours): Temp Pulse Resp BP Pulse Ox 98.3 F 60 18 150/64 96 10/03/17 12:00 10/03/17 12:00 10/03/17 12:00 10/03/17 12:00 10/03/17 12:00 - Medications Medications: Current Medications Albuterol/Ipratropium (Duoneb 3 Mg/0.5 Mg (3 Ml) Ud) 3 ml INH RQ6 [facility] Last Admin: 10/03/17 08:07 Dose: 3 ml Artificial Tears (Artificial Tears) 2 drop OU Q4 PRN PRN Reason: Dry eyes Ascorbic Acid (Vitamin C 500 Mg Tab) 500 mg PO DAILY [facility] Last Admin: 10/03/17 09:49 Dose: 500 mg Aspirin (Ecotrin) 81 mg PO DAILY [facility] Last Admin: 10/03/17 09:44 Dose: 81 mg Atorvastatin Calcium (Lipitor) 20 mg PO DAILY [facility] Last Admin: 10/03/17 09:49 Dose: 20 mg Carvedilol (Coreg) 3.125 mg PO Q12 [facility] Last Admin: 10/03/17 09:50 Dose: 3.125 mg Clonidine HCl (Catapres) 0.1 mg PO Q8 [facility] Last Admin: 10/03/17 09:45 Dose: 0.1 mg Dextrose (Dextrose 50% Inj) 0 ml IV STAT PRN; Protocol PRN Reason: Hypoglycemia Protocol Dextrose (Glutose 15) 0 gm PO ONCE PRN; Protocol PRN Reason: Hypoglycemia Protocol Docusate Sodium (Colace) 100 mg PO BID [facility] Last Admin: 10/03/17 09:46 Dose: 100 mg Ergocalciferol (Drisdol 50,000 Intl Units Cap) 1 cap PO QWK [facility] Last Admin: 10/02/17 08:51 Dose: 1 cap Ferrous Sulfate (Feosol) 325 mg PO BID [facility] Last Admin: 10/03/17 09:44 Dose: 325 mg Glipizide (Glucotrol Xl) 2.5 mg PO BID [facility] Last Admin: 10/03/17 09:46 Dose: 2.5 mg Glucagon (Glucagen Diagnostic Kit) 0 mg IM STAT PRN; Protocol PRN Reason: Hypoglycemia Protocol Heparin Sodium (Porcine) (Heparin) 5,000 units SC Q12 [facility] PRN Reason: Protocol Last Admin: 10/03/17 09:47 Dose: 5,000 units Hydralazine HCl (Apresoline) 50 mg PO Q8 [facility] Last Admin: 10/03/17 09:45 Dose: 50 mg Insulin Detemir (Levemir) 8 units SC HS [facility] Last Admin: 10/02/17 21:18 Dose: 8 u Insulin Human Lispro (Humalog) 0 units SC ACHS [facility] PRN Reason: Protocol Last Admin: 10/03/17 12:09 Dose: 2 unit Insulin Lispro Protam/Lispro Human (Humalog Mix 75/25) 6 units SC BIDAC [facility] Last Admin: 10/03/17 09:49 Dose: Not Given Multivitamins/Minerals (Therapeutic-M Tab) 1 tab PO DAILY [facility] Last Admin: 10/03/17 09:43 Dose: 1 tab Nitroglycerin (Nitro-Bid 2% Oint) 1 ea TOP Q6 [facility] Last Admin: 10/03/17 09:43 Dose: 1 ea Zolpidem Tartrate (Ambien) 5 mg PO HS PRN PRN Reason: Insomnia - Labs Labs: 09/30/17 14:10 09/30/17 04:00 PT 12.0 Seconds (9.8-13.1) 09/28/17 22:57 INR 1.1 (0.9-1.2) 09/28/17 22:57 APTT 28.1 Seconds (25.6-37.1) 09/28/17 22:57 - Constitutional Appears: No Acute Distress - Head Exam Head Exam: NORMAL INSPECTION - Eye Exam Eye Exam: PERRL - ENT Exam ENT Exam: Normal Exam - Neck Exam Neck Exam: Normal Inspection - Respiratory Exam Respiratory Exam: Decreased Breath Sounds (at bases) - Cardiovascular Exam Cardiovascular Exam: REGULAR RHYTHM, Murmur - GI/Abdominal Exam GI & Abdominal Exam: Soft, Normal Bowel Sounds - Extremities Exam Additional comments: 2+ pitting edema BLE, R L knee tenderness - Back Exam Back Exam: tenderness - Neurological Exam Neurological Exam: Alert Additional comments: Alert , no focal motor/sensory deficit. - Psychiatric Exam Psychiatric exam: Normal Affect - Skin Skin Exam: Warm Assessment and Plan (1) CHF (congestive heart failure) Status: Acute (2) COPD (chronic obstructive pulmonary disease) Status: Chronic (3) CKD (chronic kidney disease) Status: Chronic (4) HTN (hypertension) Status: Chronic (5) Type II diabetes mellitus Status: Chronic - Assessment and Plan (Free Text) Plan: Clonidine, Hydralazine, Coreg, NTG Tx CHF.HTN, STT abnormal, LHCX Wednesday, Glucotrol, Humalog 75/25. Levemir Tx DM
[2017-10-03] MEDS: Insulin Detemir 100 Units/ml Inj SC SCH (22:03)
[2017-10-04] MEDS: Albuterol-Ipratrop 3 mg / 0.5 (3 ml) UD INH SCH ×3 (00:59→13:59)
[2017-10-04] MEDS: Nitroglycerin 2% Ointment Foilpak UD TOP SCH ×4 (04:15→21:54)
[2017-10-04 06:36] LABS: BASO % 0.5 % (0.0-2.0); EOS # 0.3 K/uL (0.0-0.7); EOS % 4.5 % (0.0-4.0); LYMPH # 1.4 K/uL (1.0-4.3); LYMPH % 18.1 % (20.0-40.0); MEAN CELL VOLUME 86.3 fl (81.0-99.0); MEAN CORPUSCULAR HEMOGLOBIN 29.4 pg (27.0-31.0); MEAN PLATELET VOLUME 9.4 fl (7.2-11.7); MONO # 0.6 K/uL (0.0-0.8); MONO % 7.7 % (0.0-10.0); NEUT # 5.3 K/uL (1.8-7.0); NEUT % 69.2 % (50.0-75.0); RBC 3.07 Mil/uL (3.80-5.20); RED CELL DISTRIBUTION WIDTH 14.5 % (11.5-14.5); WHITE BLOOD COUNT 7.6 K/uL (4.8-10.8)
[2017-10-04] MEDS: Insulin Lispro (humaLOG) 100 Units/ml Inj SC SCH ×4 (06:59→21:51)
[2017-10-04 07:02] LABS: ALB/GLOB RATIO 1.4 (1.0-2.1); ALBUMIN 3.7 g/dL (3.5-5.0); CALCIUM 8.4 mg/dL (8.4-10.2)
[2017-10-04] MEDS: Insulin Lispro Mix 75/25 100 units/ml (HumaLog) 10ml SC SCH ×3 (08:12→16:40)
--- NOTE | 2017-10-04 09:56 | CP.PCM.PN ---
Subjective - Date & Time of Evaluation Date of Evaluation: 10/04/17 Time of Evaluation: 09:55 - Subjective Subjective: patient in bed appears to be comfortable No chest pain no shortness of breath no difficulty breathing Objective - Vital Signs/Intake and Output Vital Signs (last 24 hours): Temp Pulse Resp BP Pulse Ox 98 F 52 L 18 153/68 H 100 10/04/17 07:58 10/04/17 08:07 10/04/17 07:58 10/04/17 07:58 10/04/17 07:58 - Medications Medications: Current Medications Albuterol/Ipratropium (Duoneb 3 Mg/0.5 Mg (3 Ml) Ud) 3 ml INH RQ6 [facility] Last Admin: 10/04/17 08:20 Dose: 3 ml Artificial Tears (Artificial Tears) 2 drop OU Q4 PRN PRN Reason: Dry eyes Ascorbic Acid (Vitamin C 500 Mg Tab) 500 mg PO DAILY [facility] Last Admin: 10/03/17 09:49 Dose: 500 mg Aspirin (Ecotrin) 81 mg PO DAILY [facility] Last Admin: 10/03/17 09:44 Dose: 81 mg Atorvastatin Calcium (Lipitor) 20 mg PO DAILY [facility] Last Admin: 10/03/17 09:49 Dose: 20 mg Carvedilol (Coreg) 3.125 mg PO Q12 [facility] Last Admin: 10/03/17 21:46 Dose: 3.125 mg Clonidine HCl (Catapres) 0.1 mg PO Q8 [facility] Last Admin: 10/04/17 01:10 Dose: 0.1 mg Dextrose (Dextrose 50% Inj) 0 ml IV STAT PRN; Protocol PRN Reason: Hypoglycemia Protocol Dextrose (Glutose 15) 0 gm PO ONCE PRN; Protocol PRN Reason: Hypoglycemia Protocol Docusate Sodium (Colace) 100 mg PO BID [facility] Last Admin: 10/03/17 16:33 Dose: 100 mg Ergocalciferol (Drisdol 50,000 Intl Units Cap) 1 cap PO QWK [facility] Last Admin: 10/02/17 08:51 Dose: 1 cap Ferrous Sulfate (Feosol) 325 mg PO BID [facility] Last Admin: 10/03/17 16:38 Dose: 325 mg Glipizide (Glucotrol Xl) 2.5 mg PO BID [facility] Last Admin: 10/03/17 16:34 Dose: 2.5 mg Glucagon (Glucagen Diagnostic Kit) 0 mg IM STAT PRN; Protocol PRN Reason: Hypoglycemia Protocol Heparin Sodium (Porcine) (Heparin) 5,000 units SC Q12 [facility] PRN Reason: Protocol Last Admin: 10/03/17 21:59 Dose: 5,000 units Hydralazine HCl (Apresoline) 50 mg PO Q8 [facility] Last Admin: 10/04/17 01:11 Dose: 50 mg Insulin Detemir (Levemir) 8 units SC HS [facility] Last Admin: 10/03/17 22:03 Dose: 8 u Insulin Human Lispro (Humalog) 0 units SC ACHS [facility] PRN Reason: Protocol Last Admin: 10/04/17 06:59 Dose: Not Given Insulin Lispro Protam/Lispro Human (Humalog Mix 75/25) 6 units SC BIDAC [facility] Last Admin: 10/04/17 08:12 Dose: Not Given Multivitamins/Minerals (Therapeutic-M Tab) 1 tab PO DAILY [facility] Last Admin: 10/03/17 09:43 Dose: 1 tab Nitroglycerin (Nitro-Bid 2% Oint) 1 ea TOP Q6 [facility] Last Admin: 10/04/17 04:15 Dose: 1 ea Zolpidem Tartrate (Ambien) 5 mg PO HS PRN PRN Reason: Insomnia - Labs Labs: 10/04/17 05:25 10/04/17 05:25 PT 12.0 Seconds (9.8-13.1) 09/28/17 22:57 INR 1.1 (0.9-1.2) 09/28/17 22:57 APTT 30.4 Seconds (25.6-37.1) 10/04/17 05:25 - Constitutional Appears: No Acute Distress - ENT Exam ENT Exam: Mucous Membranes Moist - Neck Exam Neck Exam: absent: Lymphadenopathy - Cardiovascular Exam Cardiovascular Exam: REGULAR RHYTHM. absent: Gallop, JVD, Rubs - GI/Abdominal Exam GI & Abdominal Exam: Soft, Normal Bowel Sounds - Extremities Exam Extremities Exam: absent: Calf Tenderness - Back Exam Back Exam: absent: CVA tenderness (L), CVA tenderness (R) - Neurological Exam Neurological Exam: Alert - Psychiatric Exam Psychiatric exam: Normal Affect - Skin Skin Exam: absent: Cyanosis Assessment and Plan (1) Chronic kidney disease, stage III (moderate) Assessment & Plan: acute kidney injury superimposed on chronic kidney disease stage III leg edema appears to be resolving and improving. Patient also diuretics for the and past 2 days hyponatremia noted perhaps from the effect of diuretic add sodium chloride by mouth diabetic kidney disease. Diabetes mellitus type 2 History of hyperkalemia which is not problem now Status: Acute (2) CHF (congestive heart failure) Status: Acute
[2017-10-04] MEDS: Ergocalciferol 50,000 Intl Units Cap PO SCH (09:57)
[2017-10-04] MEDS: Multivitamin With Minerals Tab PO SCH (09:59)
[2017-10-04] MEDS: GlipiZIDE 2.5 mg SR Tab PO SCH ×2 (10:19→16:39)
--- NOTE | 2017-10-04 14:13 | CP.PCM.PN ---
Subjective - Date & Time of Evaluation Date of Evaluation: 10/04/17 Time of Evaluation: 11:20 - Subjective Subjective: F/U CHF/COPD Seen and examined at bedside. Patient denies CP, and SOB. No in acute distress. No events were reported overnight. Objective - Vital Signs/Intake and Output Vital Signs (last 24 hours): Temp Pulse Resp BP Pulse Ox 97.3 F L 71 18 167/60 H 100 10/04/17 12:27 10/04/17 12:27 10/04/17 12:27 10/04/17 12:27 10/04/17 12:27 - Medications Medications: Current Medications Albuterol/Ipratropium (Duoneb 3 Mg/0.5 Mg (3 Ml) Ud) 3 ml INH RQ6 [facility] Last Admin: 10/04/17 13:59 Dose: 3 ml Artificial Tears (Artificial Tears) 2 drop OU Q4 PRN PRN Reason: Dry eyes Ascorbic Acid (Vitamin C 500 Mg Tab) 500 mg PO DAILY [facility] Last Admin: 10/04/17 09:56 Dose: 500 mg Aspirin (Ecotrin) 81 mg PO DAILY [facility] Last Admin: 10/04/17 09:55 Dose: 81 mg Atorvastatin Calcium (Lipitor) 20 mg PO DAILY [facility] Last Admin: 10/04/17 09:59 Dose: 20 mg Carvedilol (Coreg) 3.125 mg PO Q12 [facility] Last Admin: 10/04/17 09:57 Dose: Not Given Clonidine HCl (Catapres) 0.1 mg PO Q8 [facility] Last Admin: 10/04/17 10:03 Dose: 0.1 mg Dextrose (Dextrose 50% Inj) 0 ml IV STAT PRN; Protocol PRN Reason: Hypoglycemia Protocol Dextrose (Glutose 15) 0 gm PO ONCE PRN; Protocol PRN Reason: Hypoglycemia Protocol Docusate Sodium (Colace) 100 mg PO BID [facility] Last Admin: 10/04/17 09:56 Dose: 100 mg Ergocalciferol (Drisdol 50,000 Intl Units Cap) 1 cap PO QWK [facility] Last Admin: 10/04/17 09:57 Dose: 1 cap Ferrous Sulfate (Feosol) 325 mg PO BID [facility] Last Admin: 10/04/17 09:54 Dose: 325 mg Glipizide (Glucotrol Xl) 2.5 mg PO BID [facility] Last Admin: 10/04/17 10:19 Dose: 2.5 mg Glucagon (Glucagen Diagnostic Kit) 0 mg IM STAT PRN; Protocol PRN Reason: Hypoglycemia Protocol Heparin Sodium (Porcine) (Heparin) 5,000 units SC Q12 [facility] PRN Reason: Protocol Last Admin: 10/04/17 09:58 Dose: 5,000 units Hydralazine HCl (Apresoline) 50 mg PO Q8 [facility] Last Admin: 10/04/17 09:55 Dose: 50 mg Insulin Detemir (Levemir) 8 units SC HS [facility] Last Admin: 10/03/17 22:03 Dose: 8 u Insulin Human Lispro (Humalog) 0 units SC ACHS [facility] PRN Reason: Protocol Last Admin: 10/04/17 11:21 Dose: Not Given Insulin Lispro Protam/Lispro Human (Humalog Mix 75/25) 6 units SC BIDAC [facility] Last Admin: 10/04/17 10:26 Dose: 6 units Multivitamins/Minerals (Therapeutic-M Tab) 1 tab PO DAILY [facility] Last Admin: 10/04/17 09:59 Dose: 1 tab Nitroglycerin (Nitro-Bid 2% Oint) 1 ea TOP Q6 [facility] Last Admin: 10/04/17 09:59 Dose: 1 ea Sodium Chloride (Sodium Chloride Tab) 1 gm PO BID [facility] Last Admin: 10/04/17 11:44 Dose: 1 gm - Labs Labs: 10/04/17 05:25 10/04/17 05:25 PT 12.0 Seconds (9.8-13.1) 09/28/17 22:57 INR 1.1 (0.9-1.2) 09/28/17 22:57 APTT 30.4 Seconds (25.6-37.1) 10/04/17 05:25 - Constitutional Appears: Non-toxic, No Acute Distress - Eye Exam Eye Exam: Normal appearance - ENT Exam ENT Exam: Mucous Membranes Dry - Respiratory Exam Respiratory Exam: Decreased Breath Sounds (at bases), NORMAL BREATHING PATTERN - Cardiovascular Exam Cardiovascular Exam: REGULAR RHYTHM, +S1, +S2 - GI/Abdominal Exam GI & Abdominal Exam: Soft, Normal Bowel Sounds. absent: Guarding, Rigid, Tenderness - Extremities Exam Additional comments: 2+ pitting edema - Neurological Exam Neurological Exam: Alert, Awake, Oriented x3 Assessment and Plan (1) CHF (congestive heart failure) Status: Acute (2) COPD (chronic obstructive pulmonary disease) Status: Chronic (3) CKD (chronic kidney disease) Status: Chronic (4) HTN (hypertension) Status: Chronic (5) Type II diabetes mellitus Status: Chronic - Assessment and Plan (Free Text) Plan: -Noted that Cardiac cath was cancelled, because pt's family request, and acute kidney injury superimposed on chronic kidney disease stage III -Optimize medical treatment. F/U cardiology consult. Recs are appreciated. -c/w Clonidine, Hydralazine, Coreg, NTG Tx CHF/HTN. -c/w Glucotrol, Humalog 75/25, Levemir Tx DM -F/u nephrology consult, recs are appreciated
[2017-10-04] MEDS: Insulin Detemir 100 Units/ml Inj SC SCH (21:52)
[2017-10-05 00:14] VITALS: RESP 18
[2017-10-05] MEDS: Albuterol-Ipratrop 3 mg / 0.5 (3 ml) UD INH SCH ×3 (01:14→13:29)
[2017-10-05] MEDS: Nitroglycerin 2% Ointment Foilpak UD TOP SCH (05:00)
[2017-10-05] MEDS: Insulin Lispro (humaLOG) 100 Units/ml Inj SC SCH ×2 (06:57→15:19)
[2017-10-05 08:54] LABS: HEMOGLOBIN 8.8 g/dL (12.0-16.0); MEAN CELL VOLUME 87.7 fl (81.0-99.0); MEAN CORPUSCULAR HEMOGLOBIN 29.6 pg (27.0-31.0); MEAN CORPUSCULAR HGB CONC 33.8 g/dL (33.0-37.0); RBC 2.96 Mil/uL (3.80-5.20); RED CELL DISTRIBUTION WIDTH 15.2 % (11.5-14.5); WHITE BLOOD COUNT 8.8 K/uL (4.8-10.8)
[2017-10-05 09:02] LABS: CALCIUM 8.3 mg/dL (8.4-10.2)
[2017-10-05] MEDS: Ergocalciferol 50,000 Intl Units Cap PO SCH (09:17)
[2017-10-05] MEDS: Multivitamin With Minerals Tab PO SCH (09:19)
[2017-10-05] MEDS: Insulin Lispro Mix 75/25 100 units/ml (HumaLog) 10ml SC SCH (09:20)
[2017-10-05] MEDS: GlipiZIDE 2.5 mg SR Tab PO SCH (09:21)
--- NOTE | 2017-10-05 10:40 | CARD ---
APPROVED REPORT Date of service: 09/30/2017 Protocol: LEXISCAN Test Type: Stress Nuclear Medications: ALBUTEROL 3MG, ARTIFICAL TEARS 2 DROPS, ASCORBIC 500MG, ASA 81MG, ATORVASTATIN 20MG, CLONIDINE 0.1MG, ERGOCALCIFEROL 50,000, LASIX 40MG, GLIPIZIDE 2.5MG, HERPARIN 5,OOO UNITIS HYDRALAZINE 50MG, , INSULIN MULTIVITAMINS/MINERALS NITROGLYCERIN , ZOLPIDEM 5MG. Medical History: COPD, DIABETES, CKD III, HYPERCHOLESTEROLEMIA, TIA, PVD, ANXIETY,DEPRESSION, CHOLECYSTECTOMY, OSTEOPOROSIS, OSTEOARTHRITIS, ARTHRITIS, CATARACTS, APPENDECTOMY, Target HR: 133 bpm Resting ECG: normal Resting Heart Rate: 78 bpm Resting Blood Pressure: 189/75mmHg submaximum (85%): 113 bpm TEST SUMMARY PREINJECTPRE-[id number]. [id number]. INJECTIONNUC MED00:[id number]. [id number]. PROCEDURE Pharmacologic stress testing was performed using 0.4mg per 5ml of regadenoson given intravenously over 7-10 seconds. POST EXERCISE Reason for Termination: protocol completed Target HR: No Max HR: 85 bpm 76% of Maximum Predicted HR: 133 bpm Exercise duration: 00:22 min:sec, 0 Stage Exercise capacity: 1.0METs Max Blood Pressure: 190/131mmHg Blood Pressure response to exercise: n/a Heart Rate response to exercise: n/a Chest Pain: No, none Angina index: 0 Arrhythmia: No, none ST Change: No, none Deviation: 0 mm EXAM: Myocardial Perfusion REST/STRESS Image QualityGOOD Imaging Protocol The imaging protocol used to acquire images was Rest Tc-99m/stress Tc-99m 1 day Rest Spect myocardial perfusion imaging was performed in supine position 60 minutes following the injection of 10 mCi of Tc-99 Myoview. Time of rest injection: 7:40 Time of rest imagin:42 At peak stress, the patient was injected intravenously with 30mCi of Tc-99 tetrofosmin after an infusion time of minutes and seconds. Time of stress injection: 11:53 Time of stress imagin:55 Gated Stress Spect was performed 60 minutes after intravenous Tc-99 Myoview injection. The images were gated to evaluate regional wall motion and calculate ventricular ejection fraction. NUCLEAR IMAGE INTERPRETATION Study quality was good. Left Ventricular size was Normal at Rest and Stress. LV Perfusion 1 Perfusion Defect Location: mid inferolateral Perfusion Defect Size: Medium (3-4 segments) Perfusion Defect Severity: Severe Type of Perfusion Defect: Reversible TCD/TID: Yes CONCLUSION 1. - Abnormal myocardial perfusion study with reversible ishcemia in the territory of left circumflex artery 2. 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
--- NOTE | 2017-10-05 11:28 | CP.PCM.PN ---
Subjective - Date & Time of Evaluation Date of Evaluation: 10/05/17 Time of Evaluation: 11:27 - Subjective Subjective: patient awake and conscious not in acute distress feeling good Objective - Vital Signs/Intake and Output Vital Signs (last 24 hours): Temp Pulse Resp BP Pulse Ox 97.5 F L 80 18 149/69 95 10/05/17 08:01 10/05/17 09:23 10/05/17 08:01 10/05/17 09:23 10/05/17 08:01 - Medications Medications: Current Medications Albuterol/Ipratropium (Duoneb 3 Mg/0.5 Mg (3 Ml) Ud) 3 ml INH RQ6 [facility] Last Admin: 10/05/17 07:46 Dose: 3 ml Artificial Tears (Artificial Tears) 2 drop OU Q4 PRN PRN Reason: Dry eyes Ascorbic Acid (Vitamin C 500 Mg Tab) 500 mg PO DAILY [facility] Last Admin: 10/05/17 09:19 Dose: 500 mg Aspirin (Ecotrin) 81 mg PO DAILY [facility] Last Admin: 10/05/17 09:18 Dose: 81 mg Atorvastatin Calcium (Lipitor) 20 mg PO DAILY [facility] Last Admin: 10/05/17 09:19 Dose: 20 mg Carvedilol (Coreg) 3.125 mg PO Q12 [facility] Last Admin: 10/05/17 09:19 Dose: 3.125 mg Clonidine HCl (Catapres) 0.1 mg PO Q8 [facility] Last Admin: 10/05/17 09:23 Dose: 0.1 mg Dextrose (Dextrose 50% Inj) 0 ml IV STAT PRN; Protocol PRN Reason: Hypoglycemia Protocol Dextrose (Glutose 15) 0 gm PO ONCE PRN; Protocol PRN Reason: Hypoglycemia Protocol Docusate Sodium (Colace) 100 mg PO BID [facility] Last Admin: 10/05/17 09:19 Dose: 100 mg Ergocalciferol (Drisdol 50,000 Intl Units Cap) 1 cap PO QWK [facility] Last Admin: 10/05/17 09:17 Dose: 1 cap Ferrous Sulfate (Feosol) 325 mg PO BID [facility] Last Admin: 10/05/17 09:18 Dose: 325 mg Glipizide (Glucotrol Xl) 2.5 mg PO BID [facility] Last Admin: 10/05/17 09:21 Dose: 2.5 mg Glucagon (Glucagen Diagnostic Kit) 0 mg IM STAT PRN; Protocol PRN Reason: Hypoglycemia Protocol Heparin Sodium (Porcine) (Heparin) 5,000 units SC Q12 [facility] PRN Reason: Protocol Last Admin: 10/05/17 09:20 Dose: 5,000 units Hydralazine HCl (Apresoline) 50 mg PO Q8 [facility] Last Admin: 10/05/17 09:18 Dose: 50 mg Insulin Detemir (Levemir) 8 units SC HS [facility] Last Admin: 10/04/17 21:52 Dose: 8 u Insulin Human Lispro (Humalog) 0 units SC ACHS [facility] PRN Reason: Protocol Last Admin: 10/05/17 06:57 Dose: Not Given Insulin Lispro Protam/Lispro Human (Humalog Mix 75/25) 6 units SC BIDAC [facility] Last Admin: 10/05/17 09:20 Dose: 6 units Multivitamins/Minerals (Therapeutic-M Tab) 1 tab PO DAILY [facility] Last Admin: 10/05/17 09:19 Dose: 1 tab Nitroglycerin (Nitro-Bid 2% Oint) 1 ea TOP Q6 [facility] Last Admin: 10/05/17 05:00 Dose: 1 ea Sodium Chloride (Sodium Chloride Tab) 1 gm PO BID [facility] Last Admin: 10/05/17 09:18 Dose: 1 gm - Labs Labs: 10/05/17 08:27 10/05/17 08:27 PT 12.0 Seconds (9.8-13.1) 09/28/17 22:57 INR 1.1 (0.9-1.2) 09/28/17 22:57 APTT 30.4 Seconds (25.6-37.1) 10/04/17 05:25 - Constitutional Appears: No Acute Distress - ENT Exam ENT Exam: Mucous Membranes Moist - Neck Exam Neck Exam: absent: Lymphadenopathy - Respiratory Exam Respiratory Exam: NORMAL BREATHING PATTERN. absent: Chest Wall Tenderness - GI/Abdominal Exam GI & Abdominal Exam: Soft. absent: Normal Bowel Sounds - Extremities Exam Extremities Exam: absent: Calf Tenderness - Back Exam Back Exam: absent: CVA tenderness (L), CVA tenderness (R) - Neurological Exam Neurological Exam: Alert - Psychiatric Exam Psychiatric exam: Normal Affect - Skin Skin Exam: absent: Cyanosis Assessment and Plan (1) Chronic kidney disease, stage III (moderate) Assessment & Plan: acute kidney injury superimposed on chronic kidney disease stage III leg edema appears to be resolving and improving. Patient also diuretics for the and past 2-3 days hyponatremia corrected serum sodium now 137 add sodium chloride by mouth diabetic kidney disease. Diabetes mellitus type 2 History of hyperkalemia which is not problem now Status: Acute (2) CHF (congestive heart failure) Status: Acute
[2017-10-05 12:20] VITALS: BP 164/64; PULSE 65; TEMP 97.7; O2SAT 96
--- NOTE | 2017-10-05 14:41 | CP.PCM.DIS ---
Provider - Provider Date of Admission: 09/30/17 13:29 Attending physician: Harmeet Raymundo MD Consults: Cardiology and Nephrology. Time Spent in preparation of Discharge (in minutes): 35 Diagnosis - Discharge Diagnosis (1) CHF (congestive heart failure) Status: Acute Priority: High (2) COPD (chronic obstructive pulmonary disease) Status: Chronic Priority: High (3) CKD (chronic kidney disease) Status: Chronic Priority: High (4) HTN (hypertension) Status: Chronic Priority: Medium (5) Type II diabetes mellitus Status: Chronic Priority: Medium Hospital Course - Lab Results Lab Results: Micro Results 09/29/17 06:30 Urine,Catheterized Urine Culture - Final No Growth (<1,000 CFU/ML) Most Recent Lab Values WBC 8.8 K/uL (4.8-10.8) 10/05/17 08:27 RBC 2.96 Mil/uL (3.80-5.20) L 10/05/17 08:27 Hgb 8.8 g/dL (12.0-16.0) L 10/05/17 08:27 Hct 25.9 % (34.0-47.0) L 10/05/17 08:27 MCV 87.7 fl (81.0-99.0) 10/05/17 08:27 MCH 29.6 pg (27.0-31.0) 10/05/17 08:27 MCHC 33.8 g/dL (33.0-37.0) 10/05/17 08:27 RDW 15.2 % (11.5-14.5) H 10/05/17 08:27 Plt Count 234 K/uL (130-400) 10/05/17 08:27 MPV 9.4 fl (7.2-11.7) 10/04/17 05:25 Neut % (Auto) 69.2 % (50.0-75.0) 10/04/17 05:25 Lymph % (Auto) 18.1 % (20.0-40.0) L 10/04/17 05:25 [place] % (Auto) 7.7 % (0.0-10.0) 10/04/17 05:25 Eos % (Auto) 4.5 % (0.0-4.0) H 10/04/17 05:25 Baso % (Auto) 0.5 % (0.0-2.0) 10/04/17 05:25 Neut # (Auto) 5.3 K/uL (1.8-7.0) 10/04/17 05:25 Lymph # (Auto) 1.4 K/uL (1.0-4.3) 10/04/17 05:25 Kleberg # (Auto) 0.6 K/uL (0.0-0.8) 10/04/17 05:25 Eos # (Auto) 0.3 K/uL (0.0-0.7) 10/04/17 05:25 Baso # (Auto) 0.0 K/uL (0.0-0.2) 10/04/17 05:25 PT 12.0 Seconds (9.8-13.1) 09/28/17 22:57 INR 1.1 (0.9-1.2) 09/28/17 22:57 APTT 30.4 Seconds (25.6-37.1) 10/04/17 05:25 Sodium 137 mmol/l (132-148) 10/05/17 08:27 Potassium 4.9 MMOL/L (3.6-5.0) 10/05/17 08:27 Chloride 103 mmol/L (98-107) 10/05/17 08:27 Carbon Dioxide 23 mmol/L (22-30) 10/05/17 08:27 Anion Gap 16 (10-20) 10/05/17 08:27 BUN 68 mg/dl (7-17) H 10/05/17 08:27 Creatinine 2.1 mg/dl (0.7-1.2) H 10/05/17 08:27 Est GFR ( Amer) 10/05/17 08:27 Est GFR (Non-Af Amer) 10/05/17 08:27 POC Glucose (mg/dL) 235 mg/dL (65-110) H 10/05/17 11:11 Random Glucose 107 mg/dL (65-105) H 10/05/17 08:27 Hemoglobin A1c 8.5 % (4.2-6.5) H D 09/29/17 04:55 Calcium 8.3 mg/dL (8.4-10.2) L 10/05/17 08:27 Phosphorus 3.2 mg/dl (2.5-4.5) 09/29/17 13:20 Total Bilirubin 0.7 mg/dl (0.2-1.3) 10/04/17 05:25 AST 26 U/L (14-36) 10/04/17 05:25 ALT 34 U/L (9-52) 10/04/17 05:25 Alkaline Phosphatase 79 U/L (38-126) 10/04/17 05:25 Troponin I 0.0220 ng/mL (0.00-0.120) 09/29/17 13:30 NT-Pro-B Natriuret Pep 1130 pg/ml (0-900) H 09/30/17 04:00 Total Protein 6.4 G/DL (6.3-8.2) 10/04/17 05:25 Albumin 3.7 g/dL (3.5-5.0) 10/04/17 05:25 Globulin 2.7 gm/dL (2.2-3.9) 10/04/17 05:25 Albumin/Globulin Ratio 1.4 (1.0-2.1) 10/04/17 05:25 Triglycerides 63 mg/DL (0-149) D 09/29/17 04:55 Cholesterol 106 mg/dL (0-199) 09/29/17 04:55 LDL Cholesterol Direct 42 mg/dL (0-129) 09/29/17 04:55 HDL Cholesterol 39 MG/DL (30-70) 09/29/17 04:55 Thyroxine (T4) 8.97 ug/dl (5.5-11.0) 09/29/17 04:55 TSH 3rd Generation 1.23 mIU/ML (0.46-4.68) 09/29/17 04:55 PTH Intact Whole Molec 100 pg/mL (14-64) H 09/29/17 13:20 Urine Color Yellow (YELLOW) 09/29/17 12:26 Urine Clarity Cloudy (Clear) 09/29/17 12:26 Urine pH 5.0 (5.0-8.0) 09/29/17 12:26 Ur Specific [place] 1.010 (1.003-1.030) 09/29/17 12:26 Urine Protein 100 mg/dL (NEGATIVE) 09/29/17 12:26 Urine Glucose (UA) Neg mg/dL (Normal) 09/29/17 12:26 Urine Ketones Negative mg/dL (NEGATIVE) 09/29/17 12:26 Urine Blood Negative (NEGATIVE) 09/29/17 12:26 Urine Nitrate Negative (NEGATIVE) 09/29/17 12:26 Urine Bilirubin Negative (NEGATIVE) 09/29/17 12:26 Urine Urobilinogen 0.2-1.0 mg/dL (0.2-1.0) 09/29/17 12:26 Ur Leukocyte Esterase Small Ladan/uL (Negative) 09/29/17 12:26 Urine RBC (Auto) 7 /hpf (0-3) H 09/29/17 12:26 Urine Microscopic WBC 8 /hpf (0-5) H 09/29/17 12:26 Ur Squamous Epith Cells < 1 /hpf (0-5) 09/29/17 12:26 Urine Bacteria Occ (<OCC) H 09/29/17 12:26 Hyaline Casts >20 /hpf (0-2) H 09/29/17 12:26 Urine Osmolality 317 mosm/kg (300-1000) 09/29/17 06:30 Ur Random Creatinine 150.9 mg/dL 09/29/17 12:26 U Random Total Protein 275.0 mg/dL (0.0-12.0) H 09/29/17 12:26 Ur Random Sodium 125 meq/L 09/29/17 06:30 Ur Random Potassium 8.9 mmol/L 09/29/17 06:30 - Date & Time of H&P Date of H&P: 09/29/17 Time of H&P: 14:30 Discharge Exam - Head Exam Head Exam: NORMAL INSPECTION - Eye Exam Eye Exam: Normal appearance - ENT Exam ENT Exam: Mucous Membranes Dry - Respiratory Exam Respiratory Exam: Decreased Breath Sounds (at bases) - Cardiovascular Exam Cardiovascular Exam: REGULAR RHYTHM, +S1, +S2 - GI/Abdominal Exam GI & Abdominal Exam: Normal Bowel Sounds, Soft. absent: Guarding, Rigid, Tenderness - Extremities Exam Additional comments: 2+ pitting edema - Neurological Exam Neurological exam: Alert, Oriented x3 Discharge Plan - Discharge Medications Prescriptions: Polyethylene Glycol/Polyvinyl [Artificial Tears] 2 drop OU Q4 PRN #1 bottle PRN Reason: Dry Eyes Carvedilol [Coreg] 3.125 mg PO Q12 #60 tab Multimineral/Multivitamin [Therapeutic-M Tab] 1 tab PO DAILY #30 tab - Follow Up Plan Condition: FAIR Disposition: DISCHARGED TO HOME CARE Instructions: Heart Failure, Adult (DC), Chronic Kidney Disease (DC) Additional Instructions: follow up appt with on 10/19/17 at 1:15pm follow up with in 1-2 weeks KARINA Robb JULIA, thank you for letting us take care of you today. Your provider was Lupillo Hester MD and you were treated for LEG SWELLING. The emergency medical care you received today was directed at your acute symptoms. If you were prescribed any medication, please fill it and take as directed. It may take several days for your symptoms to resolve. Return to the Emergency Department if your symptoms worsen, do not improve, or if you have any other problems. Please contact your doctor or call one of the physicians/clinics you have been referred to that are listed on the Patient Visit Information form that is included in your discharge packet. Bring any paperwork you were given at discharge with you along with any medications you are taking to your follow up visit. Our treatment cannot replace ongoing medical care by a primary care provider outside of the emergency department. Thank you for allowing the [facility] team to be part of your care today. If you had an X-Ray or CT scan: A Radiologist will review the ED reading if any change in treatment is needed we will contact you. If you had a blood, urine, or wound culture: It will take several days for the results, if any change in treatment is needed we will contact you. If you had an STI test: It will take 48 hours for the results. Please call after 1 week if you have not heard back. Referrals: Austen Jamil MD [Staff Provider] - Nelson Walker MD [Staff Provider] - Harmeet Raymundo MD [Family Provider] -
--- NOTE | 2017-10-08 12:40 | VASCLAB ---
Date of service: 10/02/2017 STUDY DESCRIPTION: HISTORY: PVD PRIORS: None. TECHNIQUE: Pulse volume recording waveforms and segmental pressures of bilateral lower extremities at multiple levels were obtained. Ankle Brachial Indices (ABIs) were calculated. Report prepared by Sherlyn. RIGHT LOWER EXTREMITY: * Brachial artery: Pressure - mmHg. * High thigh: Pressure - >240 mmHg: Ratio - : PVR waveform - Pulsatile * Low thigh: Pressure - mmHg: Ratio - PVR waveform: Pulsatile * Calf: Pressure - >240 mmHg: Ratio - PVR waveform: Pulsatile * Posterior tibial Artery: Pressure - mmHg: Ratio - PVR waveform: Pulsatile * Dorsalis pedis Artery: Pressure - >240 mmHg: Ratio - PVR waveform: Pulsatile * Great toe: Pressure - mmHg: Ratio - PVR waveform: Pulsatile Ankle brachial index (CHRISTIANE): LEFT LOWER EXTREMITY: * Brachial artery: Pressure - >240 mmHg. * High thigh: Pressure - >240 mmHg: Ratio - : PVR waveform - Pulsatile * Low thigh: Pressure - mmHg: Ratio - PVR waveform: Pulsatile * Calf: Pressure - >240Hg: Ratio - PVR waveform: Pulsatile * Posterior tibial Artery: Pressure - >240Hg: Ratio - PVR waveform: Pulsatile * Dorsalis pedis Artery: Pressure - mmHg: Ratio - PVR waveform: Pulsatile * Great toe: Pressure - mmHg: Ratio - PVR waveform: Pulsatile Ankle brachial index (CHRISTIANE): OTHER FINDINGS: IMPRESSION: Right: The ankle pressure index of the right lower extremity is non-diagnostic due to possible arterial wall calcifications. Left: The ankle pressure index of the left lower extremity is non-diagnostic due to possible arterial wall calcifications. Recommend CT angiogram of the abdomen and lower extremity if Pt has claudication.
--- NOTE | 2017-10-10 22:19 | PQF ---
PROVIDER RESPONSE TEXT: Diastolic CHF from ischemia REVIEWER QUERY TEXT: CHF Acuity and Type Congestive Heart Failure is documented in the Medical Record. Please document the type (includes pro bable or suspected) Such as: Type: -- Systolic -- Diastolic -- Combined -- Other, please specify 09/30 Echo: see the full report in the EMR: The aortic valve is calcified and displays decreased openi ng. There is mild valvular aortic stenosis. PEAK AORTIC GRADIENT 15MMHg khoi 2.02 CM2 The left ventr icle is normal size. There is mild to moderate concentric left ventricular hypertrophy. The left vent ricular function is normal. The left ventricular ejection fraction is within the normal range. LVEF 6 5% Tissue Doppler imaging reveals abnormal left ventricular diastolic dysfunction. Transmitral Doppler flow pattern is Grade II-pseudonormal filling dynamics. The aortic valve is calcified and displays decreased opening. There is mild valvular aortic stenosis. PEAK AORTI C GRADIENT 15MMHg khoi 2.02 CM2 Mitral regurgitation is mild. There is moderate tricuspid regurgitati on. PEAK GRADIENT 34 MMHg (ABNORMAL) ProBNP:1160 CXR: IMPRESSION: Interval increased bilateral pleural effusions with interval compressive contiguo us atelectasis and/or infiltrates here seen. As before in the posterior right lower lobe there is mas slike opacity consolidation that is grossly similar in appearance its full extent is difficult to assess given its silhouetting and blending with the right consolidation atelectasis in right pleural effusion. As lin banerjeeoned previously consider follow-up PET-CT imaging if clinically indicated. Continued follow-up i s advised. H and P: diagnoses include: CHF: Acute: -Tele Cont Evaluation Specialist Dyspnea/Ortopnea/Edema in LE mo st likely 2/2 CHF exacerbation Elevated pro-BNP on admission-- furosemide to manage fluid overload I O monitor f/u echocar 09/29 Renal progress note: receiving treatment for CHF including intravenous Lasix gently monitor isaac ht every day so she would not be over diuresed and intake and output add coreg 09/30 Cardiology progress note: (1) CHF (congestive heart failure) Plan: plan for stress test cr 2. 4 dc lasix hydralazine add BB mild , mod TR Status: Acute The patient's Clinical Indicators include: XXX Query created by: Maisha Max on 10/01/2017 9:53 AM Electronically signed by: Austen Jamil MD 10/10/2017 10:16 PM
== END 2017-10-05 15:15 | disposition home health service (06) | DRG 291 ==
LOC: H.ER 20:40 → OBSVTOIN 22:18 → H.EROBSV 22:18 → INTOOBSV 22:18 → H.TEL 09-29 01:04 → OBSVTOIN 09-30 13:29
PROVIDERS: ADMIT Internal Medicine Pulmonary Disease; ATTEND Internal Medicine Pulmonary Disease
PROC: 3E0234Z Introduction of Serum, Toxoid and Vaccine into Muscle, Percutaneous Approach (ICD-10-PCS; principal; 2017-09-30)
DX: I13.0 Hypertensive heart and chronic kidney disease with heart failure and stage 1 through stage 4 chronic kidney disease, or unspecified chronic kidney disease (principal); I50.33 Acute on chronic diastolic (congestive) heart failure; N17.9 Acute kidney failure, unspecified; E87.1 Hypo-osmolality and hyponatremia; N18.3 Chronic kidney disease, stage 3 (moderate); E11.21 Type 2 diabetes mellitus with diabetic nephropathy; E11.22 Type 2 diabetes mellitus with diabetic chronic kidney disease; E87.5 Hyperkalemia; I25.9 Chronic ischemic heart disease, unspecified; E11.51 Type 2 diabetes mellitus with diabetic peripheral angiopathy without gangrene; Z53.29 Procedure and treatment not carried out because of patient's decision for other reasons; M81.0 Age-related osteoporosis without current pathological fracture; E78.00 Pure hypercholesterolemia, unspecified; J44.9 Chronic obstructive pulmonary disease, unspecified; F41.9 Anxiety disorder, unspecified; M19.90 Unspecified osteoarthritis, unspecified site; Z79.82 Long term (current) use of aspirin; Z99.81 Dependence on supplemental oxygen; Z91.14 Patient's other noncompliance with medication regimen; Z87.01 Personal history of pneumonia (recurrent); Z86.73 Personal history of transient ischemic attack (TIA), and cerebral infarction without residual deficits; Z23 Encounter for immunization

== ENCOUNTER 2017-12-08 11:35 | Observation (INO) | payer MEDICARE, MEDICAID ==
[2017-12-08 11:43] VITALS: BMI 37.4
[2017-12-08] MEDS ORDERED: Albuterol-Ipratrop 3 mg / 0.5 (3 ml) UD INH STA (12:08)
[2017-12-08] MEDS ORDERED: Albuterol-Ipratrop 3 mg / 0.5 (3 ml) UD IH STA (12:08)
[2017-12-08] MEDS ORDERED: Sodium Chloride 0.9% 500 ML IV STA (12:09)
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
[2017-12-08] MEDS ORDERED: Albuterol-Ipratrop 3 mg / 0.5 (3 ml) UD ONE (12:26)
--- NOTE | 2017-12-08 12:38 | RAD ---
Date of service: 12/08/2017 HISTORY: dyspnea COMPARISON: Chest radiograph dated 09/28/2017. FINDINGS: LUNGS: Pulmonary vascular congestion. Bibasilar atelectasis. PLEURA: Questionable small bilateral pleural effusions. No pneumothorax apparent. CARDIOVASCULAR: Atherosclerotic aortic calcifications. Cardiomediastinal silhouette stably enlarged OSSEOUS STRUCTURES: Unchanged. VISUALIZED UPPER ABDOMEN: Normal. OTHER FINDINGS: None. IMPRESSION: Pulmonary vascular congestion and questionable small bilateral pleural effusions. No focal consolidation.
[2017-12-08 13:07] LABS: ALB/GLOB RATIO 1.3 (1.0-2.1); ALBUMIN 3.9 g/dL (3.5-5.0); BLOOD UREA NITROGEN 48 mg/dl (7-17); CALCIUM 9.8 mg/dL (8.4-10.2); GFR NON-AFRICAN AMERICAN 28
[2017-12-08 13:10] LABS: INR 1.1; PROTHROMBIN TIME 12.3 Seconds (9.8-13.1)
[2017-12-08 13:12] LABS: PARTIAL THROMBOPLASTIN TIME 33.7 Seconds (25.6-37.1)
[2017-12-08 13:14] LABS: BASO # 0.1 K/uL (0.0-0.2); EOS # 0.2 K/uL (0.0-0.7); EOS % 3.2 % (0.0-4.0); HEMOGLOBIN 10.5 g/dL (12.0-16.0); LYMPH # 1.3 K/uL (1.0-4.3); LYMPH % 19.3 % (20.0-40.0); MEAN CELL VOLUME 86.1 fl (81.0-99.0); MEAN CORPUSCULAR HEMOGLOBIN 28.4 pg (27.0-31.0); MEAN PLATELET VOLUME 10.2 fl (7.2-11.7); MONO # 0.3 K/uL (0.0-0.8); MONO % 5.3 % (0.0-10.0); NEUT # 4.7 K/uL (1.8-7.0); NEUT % 71.2 % (50.0-75.0); RBC 3.7 Mil/uL (3.80-5.20); RED CELL DISTRIBUTION WIDTH 14.4 % (11.5-14.5); WHITE BLOOD COUNT 6.6 K/uL (4.8-10.8)
[2017-12-08 13:19] LABS: B-TYPE NATRIURETIC PEPTIDE 1030 pg/ml (0-900)
[2017-12-08 13:21] LABS: ALT/SGPT 35 U/L (9-52); AST/SGOT 50 U/L (14-36)
[2017-12-08 14:16] LABS: ABG ALLEN TEST YES; ARTERIAL BLOOD GAS HCO3 29.7 mmol/L (21-28); ARTERIAL BLOOD GAS O2 SAT 95.1 % (95-98); ARTERIAL BLOOD GAS PCO2 42 mm/Hg (35-45); ARTERIAL BLOOD GAS PH 7.47 (7.35-7.45); ARTERIAL BLOOD GAS PO2 66 mm/Hg (80-100); ARTERIAL BLOOD GAS TCO2 31.9 mmol/L (22-28)
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
[2017-12-08] MEDS ORDERED: Lactulose 10 gm/15 ml (Rectal Use) PR PRN (15:09)
[2017-12-08] MEDS ORDERED: Albuterol-Ipratrop 3 mg / 0.5 (3 ml) UD INH PRN (15:14)
[2017-12-08] MEDS ORDERED: Ergocalciferol 50,000 Intl Units Cap PO SCH (15:15)
[2017-12-08] MEDS ORDERED: Glucagon Recombinant 1 mg Inj IM PRN (16:16)
[2017-12-08] MEDS ORDERED: Dextrose 50% SYRINGE Inj (50 ml) IV PRN (16:16)
[2017-12-08] MEDS: Insulin Lispro (humaLOG) 100 Units/ml Inj SC SCH ×2 (17:24→21:43)
[2017-12-08] MEDS ORDERED: Insulin Regular 100 units/ml ONE (17:30)
--- NOTE | 2017-12-08 17:58 | CARD ---
APPROVED REPORT Date of service: 12/08/2017 EKG Measurement Heart [id number] <Conclusion> Normal sinus rhythm Nonspecific T wave abnormality Abnormal ECG
[2017-12-08] MEDS: GlipiZIDE 2.5 mg SR Tab PO SCH (18:36)
[2017-12-09 05:57] LABS: CALCIUM 9.4 mg/dL (8.4-10.2)
[2017-12-09 05:58] LABS: HEMOGLOBIN 11.3 g/dL (12.0-16.0); MEAN CORPUSCULAR HEMOGLOBIN 28.8 pg (27.0-31.0); MEAN CORPUSCULAR HGB CONC 33.5 g/dL (33.0-37.0); RBC 3.93 Mil/uL (3.80-5.20); RED CELL DISTRIBUTION WIDTH 14.3 % (11.5-14.5); WHITE BLOOD COUNT 9.2 K/uL (4.8-10.8)
[2017-12-09 08:00] VITALS: RESP 18
[2017-12-09] MEDS ORDERED: Influenza Vaccine 60 MCG/0.5 ML SYR (3 yr & up) IM ONE (08:29)
[2017-12-09] MEDS ORDERED: Multivitamin With Minerals Tab PO SCH (09:00)
[2017-12-09] MEDS: GlipiZIDE 2.5 mg SR Tab PO SCH (10:16)
[2017-12-09] MEDS: Insulin Lispro (humaLOG) 100 Units/ml Inj SC SCH ×2 (10:51→13:07)
[2017-12-09] MEDS ORDERED: Insulin Regular 100 units/ml SC STA (11:22)
[2017-12-09 12:08] VITALS: BP 155/80; PULSE 53; TEMP 98.2; O2SAT 99
--- NOTE | 2017-12-09 12:15 | US ---
Date of service: 12/08/2017 PROCEDURE: Right lower extremity venous duplex Doppler. HISTORY: r/o dvt COMPARISON: Bilateral lower extremity venous duplex ultrasound performed 09/28/2017. TECHNIQUE: Common femoral, superficial femoral, popliteal and posterior tibial veins were evaluated. Flow was assessed with color Doppler, compressibility, assessment of phasic flow and augmentation response. FINDINGS: COMMON FEMORAL VEIN: Unremarkable. SUPERFICIAL FEMORAL VEIN: Unremarkable. POPLITEAL VEIN: Unremarkable. POSTERIOR TIBIAL VEIN: Unremarkable. OTHER FINDINGS: None. IMPRESSION: No evidence of deep venous thrombosis in the right lower extremity.
[2017-12-09] MEDS ORDERED: Insulin Lispro (humaLOG) 100 Units/ml Inj SC STA (12:47)
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
[2017-12-09] MEDS ORDERED: Insulin Detemir 100 Units/ml Inj SC STA (15:13)
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
[2017-12-09] MEDS ORDERED: Insulin Lispro (humaLOG) 100 Units/ml Inj SC SCH ×2 (16:30)
[2017-12-09] MEDS ORDERED: Insulin Detemir 100 Units/ml Inj SC SCH (22:00)
--- NOTE | 2017-12-10 00:43 | CON ---
DATE: 12/09/2017 LOCATION: Room 403. HISTORY OF PRESENT ILLNESS: This is an 87-year-old female with known history of type 2 diabetes on oral hypoglycemic therapy presenting here with progressive shortness of breath initially on exertion and then at rest and has been evaluated to have acute exacerbation of COPD with supervening congestive heart failure and is now being referred for diabetic evaluation and management because of marked hyperglycemic accelerations as noted thereof. PAST MEDICAL HISTORY: History of type 2 diabetes taking glipizide given as 2.5 mg b.i.d., history of hypertensive cardiovascular disease and dyslipidemia, history of chronic bronchial asthma with COPD and previous admissions for exacerbations of the same, history of generalized anxiety and depression on anxiolytic medications, history of a prior deep vein thrombosis in the left leg and currently not on any kind of oral anticoagulation therapy except for aspirin given as 81 mg once daily, history of generalized osteoporosis and osteoarthritis, history of a previous transient ischemic event with no residual weakness. She also has underlying chronic kidney disease as noted. FAMILY HISTORY Positive for hypertension and diabetes. SOCIAL HISTORY: The patient has a supportive family. She has prior history of smoking but quit many years ago. REVIEW OF SYSTEMS: Admits to generalized body weakness with progressive bouts of dizziness and lightheadedness, worse on the day of admission. Also admits to sudden onset of progressive shortness of breath initially on exertion and then at rest with paroxysmal nocturnal dyspnea. Also admits to vomiting and also admits to coughing episodes in paroxysms as noted. No chest pains or palpitations otherwise as noted. Her oral intake has been variable with nausea, dyspepsia and vague upper abdominal pains. Also admits to marked polyuria, nocturia and polydipsia as noted with habitual constipation. PHYSICAL EXAMINATION: GENERAL: This is an obese female in no apparent distress. VITAL SIGNS: Blood pressure of 150/90, pulse of 100 beats per minute regular, temperature 98, respirations 20, height is 5 feet 2 inches, weight is 233 pounds. HEENT: Head normocephalic. Eyes anicteric with pink conjunctivae. Funduscopy not possible at this time. Ears, nose and throat otherwise normal. NECK: Supple. Thyroid gland is normal in size. No carotid bruits or any cervical adenopathy. CARDIOPULMONARY: Adynamic precordium. S1, S2 are rapid and regular. Lungs show scattered rhonchi. ABDOMEN: Obese, soft with positive bowel sounds. EXTREMITIES: No peripheral edema. Pulses are +2 bilaterally. LABORATORY DATA: Her chemistry showed a BUN of 47, sodium 140, potassium 3.9, chloride 101, CO2 30, glucose 321 and creatinine 1.6. Her glucose levels today have ranged from 365-416 and 448 and 475 mg/dL. ASSESSMENT: This is an 87-year-old female with uncontrolled and decompensated type 2 insulin-requiring diabetes now presenting here with congestive heart failure and concomitant acute exacerbation of chronic obstructive pulmonary disease and is being referred now for diabetic evaluation and management. PLAN OF MANAGEMENT: We will modify her current insulin regimen and switch her over to a basal and bolus insulin drug combination, which is more physiologic in terms of optimizing metabolic control at least for inpatient diabetic management. We will start her with Humalog given as 10 units t.i.d. before meals to start today as ordered. We will add Levemir given as basal insulin at 24 units subcu at bedtime daily to start tonight. We will modify the coverage scale using a very low dose algorithm with Humalog insulin as given to obviate hypoglycemia and detailed orders have been given. A hemoglobin A1c will be done to confirm her prior glycemic control and baseline thyroid function studies will be ordered. We will follow and advise accordingly. Rea Kee MD
== END 2017-12-09 16:00 | disposition left against medical advice (07) ==
LOC: H.ER 11:35 → H.ERHOLD 13:50 → H.TEL 18:19
PROVIDERS: ADMIT Hospitalist; ATTEND Hospitalist
DX: E11.65 Type 2 diabetes mellitus with hyperglycemia (principal); I13.0 Hypertensive heart and chronic kidney disease with heart failure and stage 1 through stage 4 chronic kidney disease, or unspecified chronic kidney disease; I50.31 Acute diastolic (congestive) heart failure; N18.4 Chronic kidney disease, stage 4 (severe); E11.22 Type 2 diabetes mellitus with diabetic chronic kidney disease; Z79.4 Long term (current) use of insulin; J44.1 Chronic obstructive pulmonary disease with (acute) exacerbation; Z68.41 Body mass index [BMI] 40.0-44.9, adult; F32.9 Major depressive disorder, single episode, unspecified; Z86.718 Personal history of other venous thrombosis and embolism; E78.00 Pure hypercholesterolemia, unspecified; M81.0 Age-related osteoporosis without current pathological fracture; Z86.73 Personal history of transient ischemic attack (TIA), and cerebral infarction without residual deficits; D63.8 Anemia in other chronic diseases classified elsewhere; M79.662 Pain in left lower leg; M79.661 Pain in right lower leg; K59.00 Constipation, unspecified; E55.9 Vitamin D deficiency, unspecified; Z99.81 Dependence on supplemental oxygen; E66.01 Morbid (severe) obesity due to excess calories
CPT/HCPCS: 36415; 71045; 80048; 80053; 82803; 82948; 83880; 84484; 85025; 85027; 85610; 85730; 93005; 93971; 96372; 96374; 99285; G0378; J1940; J2930; J7040

== ENCOUNTER 2018-04-15 13:23 | Inpatient (IN) | payer MEDICARE, MEDICAID ==
--- NOTE | 2018-04-15 14:27 | ED PDOC ---
HPI: General Adult Time Seen by Provider: 04/15/18 13:45 Chief Complaint (Nursing): Weakness/Neurological Deficit Chief Complaint (Provider): General Weakness History Per: Patient, Family History/Exam Limitations: language barrier Past Medical History Vital Signs: Last Vital Signs Temp 98.3 F 04/15/18 13:43 Pulse 55 L 04/15/18 13:43 Resp 18 04/15/18 13:43 BP 211/89 H 04/15/18 13:43 Pulse Ox 96 04/15/18 13:43 - Medical History PMH: Anxiety, Arthritis, Asthma, COPD, Depression, Diabetes, Deep Vein Thrombosis (left leg), HTN, Hypercholesterolemia, Osteoporosis, Pneumonia, End Stage Renal Disease (STAGE 3), Chronic Kidney Disease (stage III), TIA Denies: CHF, Hypothyroidism, Rheumatoid Arthritis - Surgical History Surgical History: Appendectomy, Cholecystectomy - Family History Family History: States: Unknown Family Hx - Home Medications Home Medications: Ambulatory Orders Medication Instructions Recorded Ascorbic Acid [Vitamin C] 500 mg PO DAILY 09/28/17 Aspirin [Ecotrin] 81 mg PO DAILY 09/28/17 Atorvastatin [Lipitor] 20 mg PO DAILY 09/28/17 Ergocalciferol (Vitamin D2) 50,000 unit PO QWK 09/28/17 [Vitamin D2] Ferrous Sulfate [Feosol] 325 mg PO BID 09/28/17 Glipizide [Glipizide ER] 2.5 mg PO BID 09/28/17 Multivitamin/Iron/Folic Acid 1 each PO DAILY 09/28/17 [Certavite-Antioxidant Tablet] cloNIDine [Catapres] 0.1 mg PO TID 09/28/17 hydrALAZINE Hydrochloride 50 mg PO TID 09/28/17 [Apresoline] Calcitriol [Rocaltrol] 0.25 mcg PO Q21D 12/08/17 Furosemide [Lasix] 40 mg PO MWF 12/08/17 Albuterol/Ipratropium [Duoneb 3 3 ml INH RQ4 PRN neb 12/09/17 mg/0.5 mg (3 ml) UD] Atorvastatin [Lipitor] 20 mg PO HS tab 12/09/17 Carvedilol [Coreg] 25 mg PO Q12 #60 tab 12/09/17 Docusate Sodium [Colace] 100 mg PO DAILY PRN #30 capsule 12/09/17 Lactulose [Generlac] 30 ml PO BID PRN #1 pkg 12/09/17 - Allergies Allergies/Adverse Reactions: Allergies Allergy/AdvReac Type Severity Reaction Status Date / Time No Known Allergies Allergy Verified 04/15/18 13:43 - Laboratory Results Result Diagrams: 04/15/18 15:12 04/15/18 15:12 - ECG ECG: Positive for: Interpreted By Me, Viewed By Me ECG Rhythm: Positive for: Normal QRS, Atrial Flutter, Nonspecific Changes Rate: 57 O2 Sat by Pulse Oximetry: 96 Pulse Ox Interpretation: Normal Disposition - Disposition Forms: [employer] (Irish)
[2018-04-15 15:24] LABS: BASO # 0.1 K/uL (0.0-0.2); EOS # 0.2 K/uL (0.0-0.7); EOS % 2.1 % (0.0-4.0); HEMOGLOBIN 12.9 g/dL (12.0-16.0); LYMPH % 18.7 % (20.0-40.0); MEAN CELL VOLUME 87.3 fl (81.0-99.0); MEAN CORPUSCULAR HEMOGLOBIN 29.2 pg (27.0-31.0); MEAN CORPUSCULAR HGB CONC 33.4 g/dL (33.0-37.0); MEAN PLATELET VOLUME 8.8 fl (7.2-11.7); MONO # 0.6 K/uL (0.0-0.8); MONO % 5.4 % (0.0-10.0); NEUT # 7.7 K/uL (1.8-7.0); NEUT % 72.8 % (50.0-75.0); RBC 4.41 Mil/uL (3.80-5.20); RED CELL DISTRIBUTION WIDTH 14.8 % (11.5-14.5); WHITE BLOOD COUNT 10.6 K/uL (4.8-10.8)
[2018-04-15 15:43] LABS: ALB/GLOB RATIO 1.2 (1.0-2.1); ALBUMIN 3.8 g/dL (3.5-5.0); CALCIUM 9.3 mg/dL (8.4-10.2)
[2018-04-15 15:48] LABS: TROPONIN I 0.02 ng/mL (0.00-0.120)
--- NOTE | 2018-04-15 15:57 | RAD ---
Date of service: 04/15/2018 HISTORY: sob/carlton COMPARISON: Frontal chest radiograph 12/08/2017. TECHNIQUE: Chest PA and lateral FINDINGS: LUNGS: Linear atelectasis question at the mid left lung zone laterally. None is seen at the right. No definite consolidation bilaterally. Suboptimal positioning with the frontal image captured in essentially an apical lordotic position. PLEURA: Trace of pleural effusion is in question. None is seen at the right. No pneumothorax bilaterally. CARDIOVASCULAR: No aortic atherosclerotic calcification present. Mild cardiomegaly reiterated. No definitive pulmonary vascular congestion. OSSEOUS STRUCTURES: No significant abnormalities. VISUALIZED UPPER ABDOMEN: Normal. OTHER FINDINGS: None. IMPRESSION: Small pleural effusion suspected. No consolidation bilaterally. No definite pulmonary vascular congestion appreciated. Suboptimal positioning with frontal image appearing like an apical lordotic projection.
--- NOTE | 2018-04-15 18:34 | CARD ---
APPROVED REPORT Date of service: 04/15/2018 EKG Measurement Heart [id number] <Conclusion> Normal sinus rhythm Nonspecific T wave abnormality Abnormal ECG
[2018-04-15 18:40] LABS: SQUAMOUS EPITHIAL 8 /hpf (0-5); URINE BACTERIA RARE (<OCC); URINE BILIRUBIN NEGATIVE (NEGATIVE); URINE BLOOD NEGATIVE (NEGATIVE); URINE CLARITY SLIGHTY-CLOUDY (Clear); URINE COLOR YELLOW (YELLOW); URINE GLUCOSE (UA) 50 mg/dL (NEGATIVE); URINE HYALINE CAST 0-2 /hpf (0-2); URINE LEUKOCYTE ESTERASE NEG Leu/uL (Negative); URINE PROTEIN >=500 mg/dL (NEGATIVE); URINE UROBILINOGEN 0.2-1.0 mg/dL (0.2-1.0)
[2018-04-15] MEDS ORDERED: Nitroglycerin 2% Ointment Foilpak UD TOP STA ×2 (19:14→20:29)
[2018-04-15] MEDS ORDERED: Nitroglycerin 2% Ointment Foilpak UD TOP ONE (20:42)
[2018-04-15] MEDS ORDERED: Enalaprilat 2.5 MG/2 ML IVP STA (22:47)
[2018-04-15] MEDS ORDERED: Ergocalciferol 50,000 Intl Units Cap PO SCH (23:45)
[2018-04-16] MEDS: Nitroglycerin 2% Ointment Foilpak UD TOP SCH ×4 (05:23→21:28)
[2018-04-16] MEDS: Insulin Lispro (humaLOG) 100 Units/ml Inj SC SCH ×3 (05:24→17:49)
[2018-04-16 06:43] LABS: HEMOGLOBIN 10.9 g/dL (12.0-16.0); MEAN CELL VOLUME 86.5 fl (81.0-99.0); MEAN CORPUSCULAR HEMOGLOBIN 29.1 pg (27.0-31.0); MEAN CORPUSCULAR HGB CONC 33.7 g/dL (33.0-37.0); RBC 3.74 Mil/uL (3.80-5.20); RED CELL DISTRIBUTION WIDTH 14.5 % (11.5-14.5); WHITE BLOOD COUNT 6.8 K/uL (4.8-10.8)
[2018-04-16 07:06] LABS: ALB/GLOB RATIO 1.1 (1.0-2.1); CALCIUM 8.8 mg/dL (8.4-10.2)
[2018-04-16 07:09] LABS: T4 7.98 ug/dl (5.5-11.0)
[2018-04-16] MEDS: GlipiZIDE 2.5 mg SR Tab PO SCH ×3 (08:45→17:50)
[2018-04-16] MEDS ORDERED: Ergocalciferol 50,000 Intl Units Cap PO SCH (09:00)
[2018-04-16 10:44] VITALS: BMI 33.1
[2018-04-16 12:00] LABS: IRON 30 ug/dL (37-170)
[2018-04-16 12:09] LABS: % IRON SATURATION 12 % (20-55); TOTAL IRON BINDING CAPACITY 243 ug/dL (250-450)
[2018-04-16 12:35] LABS: FERRITIN 53.7 ng/Ml (11.1-264.0)
[2018-04-16] MEDS: Artificial Tears Opht Soln OU PRN (15:29)
--- NOTE | 2018-04-16 17:07 | US ---
Date of service: 04/16/2018 PROCEDURE: Ultrasound of the Kidneys HISTORY: KATELYNN COMPARISON: None available. TECHNIQUE: Sonogram of the kidneys. FINDINGS: Examination limited by habitus and patient condition. RIGHT KIDNEY: Measures: 9.4 x 3.8 x 4.3 cm. 1.6 x 1.0 x 1.2 cm upper pole hypoechoic avascular lesion consistent with a cyst. No obstructing calculus or hydronephrosis identified. LEFT KIDNEY: Measures: 8.8 x 3.6 x 4.1 cm. 4.7 x 4.8 x 3.9 cm upper pole hyperechoic avascular lesion consistent with a cyst. No obstructing calculus or hydronephrosis identified. OTHER FINDINGS: None. IMPRESSION: Limited study. No obstructing calculus or hydronephrosis identified. 4.8 cm left upper pole and 1.6 cm right upper pole renal cyst.
--- NOTE | 2018-04-16 17:31 | CP.PCM.HP ---
History of Present Illness - History of Present Illness History of Present Illness: CC: Generalized weakness. 87 y/o F, PMHx: HTN, CHF, COPD on O2 at home, DMII, CKD, DVT on LLE (2014), Stroke in 2008, Chronic Anemia, High Cholesterol, O/A, Dementia. Pt was [facility] to [facility] on 04[facility]15/18 to be evaluated for Hx of Generalized Weakness, worsening on DOA with no improvement, associated to difficulty to st and up and found with increased BP 235/68. HR:55 Worsening symptoms: Her chronic condition of O/A, chronic anemia, Obesity. Aggravated factor: Non in compliance with BP medication (as per daughter), Walking/exercise. Denied: Fever, chills, n/v/d, abdominal pain, CP, palpitations, SOB, cough, sick contact, recent travel out of [facility]. CXR: Small pleural effusion. EKG: Normal sinus rhythm. Present on Admission - Present on Admission Any Indicators Present on Admission: Yes History of DVT/PE: Yes Review of Systems - Constitutional Constitutional: Weakness - EENT Eyes: Change in Vision Ears: Other (negative) Nose/Mouth/Throat: Other (negative) - Cardiovascular Cardiovascular: Leg Edema, Slow Heart Rate - Respiratory Respiratory: Dyspnea (mild) - Gastrointestinal Gastrointestinal: Other (negative) - Genitourinary Genitourinary: Urinary Incontinence - Musculoskeletal Musculoskeletal: Arthralgias, Back Pain, Muscle Weakness - Integumentary Integumentary: Other (negative) - Neurological Neurological: Confusion - Psychiatric Psychiatric: Anxiety - Endocrine Endocrine: Other (negative) - Hematologic/Lymphatic Hematologic: Other (chronic anemia) Past Patient History - Infectious Disease Hx of Infectious Diseases: None - Past Medical History & Family History Past Medical History?: Yes Pertinent Family History: Unknown - Past Social History Smoking Status: Never Smoked Alcohol: None Drugs: Denies Home Situation {Lives}: With Family - CARDIAC Hx Cardiac Disorders: Yes Hx Congestive Heart Failure: Yes Hx Hypercholesterolemia: Yes Hx Hypertension: Yes - PULMONARY Hx Respiratory Disorders: Yes Hx Asthma: Yes Hx Chronic Obstructive Pulmonary Disease (COPD): Yes Hx Pneumonia: Yes - NEUROLOGICAL Hx Neurological Disorder: Yes Hx Transient Ischemic Attacks (TIA): Yes - HEENT Hx HEENT Problems: Yes Hx Cataracts: Yes - RENAL Hx Chronic Kidney Disease: Yes (stage III) - ENDOCRINE/METABOLIC Hx Endocrine Disorders: Yes Hx Diabetes Mellitus Type 2: Yes Hx Hypothyroidism: No - HEMATOLOGICAL/ONCOLOGICAL Hx Blood Disorders: Yes Hx Anemia: Yes - INTEGUMENTARY Hx Dermatological Problems: No - MUSCULOSKELETAL/RHEUMATOLOGICAL Hx Musculoskeletal Disorders: Yes Hx Arthritis: Yes Hx Back Pain: Yes Hx Falls: No Hx Osteoporosis: Yes Hx Rheumatoid Arthritis: No - GASTROINTESTINAL Hx Gastrointestinal Disorders: No - GENITOURINARY/GYNECOLOGICAL Hx Genitourinary Disorders: Yes Hx Incontinence: Yes - PSYCHIATRIC Hx Psychophysiologic Disorder: Yes Hx Anxiety: Yes Hx Depression: Yes Hx Substance Use: No - SURGICAL HISTORY Hx Surgeries: Yes Hx Appendectomy: Yes Hx Cholecystectomy: Yes - ANESTHESIA Hx Anesthesia: Yes Hx Anesthesia Reactions: No Hx Malignant Hyperthermia: No Meds Allergies/Adverse Reactions: Allergies Allergy/AdvReac Type Severity Reaction Status Date / Time No Known Allergies Allergy Verified 04/15/18 13:43 Physical Exam - Constitutional Appears: Chronically Ill - Head Exam Head Exam: NORMAL INSPECTION - Eye Exam Eye Exam: PERRL - ENT Exam ENT Exam: Normal Exam - Neck Exam Neck exam: Positive for: Normal Inspection - Respiratory Exam Respiratory Exam: Decreased Breath Sounds (at bases) - Cardiovascular Exam Cardiovascular Exam: REGULAR RHYTHM, Systolic Murmur - GI/Abdominal Exam GI & Abdominal Exam: Normal Bowel Sounds, Soft - Extremities Exam Additional comments: 1+ non pitting edema BLE - Back Exam Back exam: tenderness - Neurological Exam Neurological exam: Alert Additional comments: Ox2, confused, follows commands. No focal motor/sensory deficit. - Psychiatric Exam Psychiatric exam: Anxious - Skin Skin Exam: Warm Results - Vital Signs Recent Vital Signs: Last Vital Signs Temp 97.9 F 04/16/18 15:59 Pulse 51 L 04/16/18 15:59 Resp 18 04/16/18 15:59 BP 169/67 H 04/16/18 15:59 Pulse Ox 98 04/16/18 15:59 reviewed J.P. - Labs Result Diagrams: 04/20/18 04:45 04/20/18 11:32 Labs: Laboratory Results - last 24 hr 04/15/18 04/16/18 04/16/18 18:35 00:55 05:16 WBC RBC Hgb Hct MCV MCH MCHC RDW Plt Count Sodium Potassium Chloride Carbon Dioxide Anion Gap BUN Creatinine Est GFR ( Amer) Est GFR (Non-Af Amer) POC Glucose (mg/dL) 166 H 131 H Random Glucose Calcium Phosphorus Magnesium Iron TIBC % Saturation Ferritin Total Bilirubin AST ALT Alkaline Phosphatase Total Protein Albumin Globulin Albumin/Globulin Ratio Triglycerides Cholesterol LDL Cholesterol Direct HDL Cholesterol Vitamin B12 Thyroxine (T4) TSH 3rd Generation Urine Color Yellow Urine Clarity Slighty-cloudy Urine pH 6.0 Ur Specific [place] 1.008 Urine Protein >=500 Urine Glucose (UA) 50 Urine Ketones Negative Urine Blood Negative Urine Nitrate Negative Urine Bilirubin Negative Urine Urobilinogen 0.2-1.0 Ur Leukocyte Esterase Neg Urine RBC (Auto) 2 Urine Microscopic WBC < 1 Ur Squamous Epith Cells 8 H Urine Bacteria Rare Hyaline Casts 0-2 04/16/18 04/16/18 04/16/18 05:30 05:30 05:48 WBC 6.8 RBC 3.74 L Hgb 10.9 L D Hct 32.4 L MCV 86.5 MCH 29.1 MCHC 33.7 RDW 14.5 Plt Count 237 Sodium 140 Potassium 3.6 Chloride 103 Carbon Dioxide 27 Anion Gap 14 BUN 40 H Creatinine 2.6 H Est GFR ( Amer) 21 Est GFR (Non-Af Amer) 17 POC Glucose (mg/dL) 125 H Random Glucose 131 H Calcium 8.8 Phosphorus 4.4 Magnesium 1.9 Iron TIBC % Saturation Ferritin Total Bilirubin 0.5 AST 25 ALT 33 Alkaline Phosphatase 86 Total Protein 5.8 L Albumin 3.0 L D Globulin 2.8 Albumin/Globulin Ratio 1.1 Triglycerides 117 D Cholesterol 133 LDL Cholesterol Direct 63 HDL Cholesterol 34 Vitamin B12 Thyroxine (T4) 7.98 TSH 3rd Generation 1.84 Urine Color Urine Clarity Urine pH Ur Specific [place] Urine Protein Urine Glucose (UA) Urine Ketones Urine Blood Urine Nitrate Urine Bilirubin Urine Urobilinogen Ur Leukocyte Esterase Urine RBC (Auto) Urine Microscopic WBC Ur Squamous Epith Cells Urine Bacteria Hyaline Casts 04/16/18 04/16/18 04/16/18 11:00 11:00 11:33 WBC RBC Hgb Hct MCV MCH MCHC RDW Plt Count Sodium Potassium Chloride Carbon Dioxide Anion Gap BUN Creatinine Est GFR ( Amer) Est GFR (Non-Af Amer) POC Glucose (mg/dL) 279 H Random Glucose Calcium Phosphorus Magnesium Iron 30 L TIBC 243 L % Saturation 12 L Ferritin 53.7 Total Bilirubin AST ALT Alkaline Phosphatase Total Protein Albumin Globulin Albumin/Globulin Ratio Triglycerides Cholesterol LDL Cholesterol Direct HDL Cholesterol Vitamin B12 758 Thyroxine (T4) TSH 3rd Generation Urine Color Urine Clarity Urine pH Ur Specific [place] Urine Protein Urine Glucose (UA) Urine Ketones Urine Blood Urine Nitrate Urine Bilirubin Urine Urobilinogen Ur Leukocyte Esterase Urine RBC (Auto) Urine Microscopic WBC Ur Squamous Epith Cells Urine Bacteria Hyaline Casts 04/16/18 16:27 WBC RBC Hgb Hct MCV MCH MCHC RDW Plt Count Sodium Potassium Chloride Carbon Dioxide Anion Gap BUN Creatinine Est GFR ( Amer) Est GFR (Non-Af Amer) POC Glucose (mg/dL) 198 H Random Glucose Calcium Phosphorus Magnesium Iron TIBC % Saturation Ferritin Total Bilirubin AST ALT Alkaline Phosphatase Total Protein Albumin Globulin Albumin/Globulin Ratio Triglycerides Cholesterol LDL Cholesterol Direct HDL Cholesterol Vitamin B12 Thyroxine (T4) TSH 3rd Generation Urine Color Urine Clarity Urine pH Ur Specific [place] Urine Protein Urine Glucose (UA) Urine Ketones Urine Blood Urine Nitrate Urine Bilirubin Urine Urobilinogen Ur Leukocyte Esterase Urine RBC (Auto) Urine Microscopic WBC Ur Squamous Epith Cells Urine Bacteria Hyaline Casts reviewed J.P. - EKG Data EKG comments: reviewed J.P. - Imaging and Cardiology Chest x-ray Status: Report reviewed by me (J.P.) Assessment & Plan (1) Generalized weakness Status: Acute Priority: High (2) CHF (congestive heart failure) Assessment and Plan: Acute on Chronic Diastoloc Status: Acute Priority: High (3) Chronic kidney disease, stage IV (severe) Status: Chronic Priority: High (4) Chronic anemia Status: Chronic Priority: Medium (5) Diabetes mellitus Status: Chronic Priority: High (6) Hyperglycemia Status: Acute Priority: High (7) Osteoarthritis of both knees Status: Chronic Priority: High (8) COPD (chronic obstructive pulmonary disease) Status: Chronic Priority: Medium (9) Dementia Status: Chronic Priority: Medium (10) Obesity, morbid Status: Chronic Priority: Medium (11) High cholesterol Status: Chronic Priority: Low (12) Peripheral vascular disease of lower extremity Status: Chronic Priority: Medium (13) Hx of deep venous thrombosis Status: Chronic - Assessment and Plan (Free Text) Plan: F/U Echo, Renal U-S, continue Lasix, Coreg, Apresoline, ASA, Insulin and rest of Tx. cardiology and Nephrology consult. - Date & Time Date: 04/16/18 Time: 14:00
--- NOTE | 2018-04-16 19:01 | CARD ---
APPROVED REPORT Date of service: 04/16/2018 EXAM: Two-dimensional and M-mode echocardiogram with Doppler and color Doppler. Other Information Quality : AverageRhythm : NSR INDICATION Congestive Heart Failure 2D DIMENSIONS IVSd1.62 (0.7-1.1cm)LVDd4.11 (3.9-5.9cm) LVOT Diameter1.84 (1.8-2.4cm)PWd1.06 (0.7-1.1cm) IVSs1.19 (0.8-1.2cm)LVDs3.20 (2.5-4.0cm) FS (%) 22.0 %PWs1.30 (0.8-1.2cm) M-Mode DIMENSIONS Left Atrium (MM)3.68 (2.5-4.0cm)IVSd1.24 (0.7-1.1cm) Aortic Root2.71 (2.2-3.7cm)LVDd4.85 (4.0-5.6cm) Aortic Cusp Exc.0.97 (1.5-2.0cm)PWd1.53 (0.7-1.1cm) IVSs1.85 cmFS (%) 51 % LVDs2.38 (2.0-3.8cm)PWs1.88 cm Aortic Valve AoV Peak Jwgahnkk771.8cm/sAoV VTI51.2cmAO Peak GR.28mmHg LVOT Peak Qwdekvpv219.9cm/sLVOT VTI31.08cmAO Mean GR.16mmHg ALICE (VMAX)0.57wr4VOD (VTI)0.78cm2 Mitral Valve MV E Tlpjqfyl35.4cm/sMV DECEL [id number] A Pqhmhyee748.6cm/s MV NMQ573qiR/A ratio0.7MVA (PHT)2.20cm2 TDI E/Lateral E'0.0E/Medial E'0.0 Tricuspid Valve TR Peak Dcncomgd120xx/sRAP SHYKXJVY30uhPiBQ Peak Gr.27mmHg [id number] LEFT VENTRICLE The left ventricle is normal size. There is normal left ventricular wall thickness. The left ventricular systolic function is normal. The estimated ejection fraction is 55-60%. No regional wall motion abnormalities noted.. Transmitral Doppler flow pattern is Grade I-abnormal relaxation pattern. No left ventricle thrombus noted on this study. There is no ventricular septal defect visualized. There is no left ventricular aneurysm. There is no mass noted in the left ventricle. RIGHT VENTRICLE The right ventricle is normal size. There is normal right ventricular wall thickness. The right ventricular systolic function is normal. ATRIA The left atrium is mildly dilated. The right atrium size is normal. The interatrial septum is intact with no evidence for an atrial septal defect. AORTIC VALVE The aortic valve is normal in structure. Mildly calcified leaflets. Mild aortic regurgitation is present. There is mild aortic valvular stenosis. There is no aortic valvular vegetation. MITRAL VALVE The mitral valve is normal in structure. There is no evidence of mitral valve prolapse. There is no mitral valve stenosis. There is mild mitral valve regurgitation noted. TRICUSPID VALVE The tricuspid valve is normal in structure. There is mild tricuspid valve regurgitation noted. RVSP is calculated at 33 mm Hg. There is no tricuspid valve prolapse or vegetation. There is no tricuspid valve stenosis. PULMONIC VALVE The pulmonary valve is normal in structure. There is no pulmonic valvular regurgitation. There is no pulmonic valvular stenosis. GREAT VESSELS The aortic root is normal in size. The ascending aorta is normal in size. The pulmonary artery is normal. The IVC is normal in size and collapses >50% with inspiration. PERICARDIAL EFFUSION There is no pericardial effusion. There is no pleural effusion. <Conclusion> The estimated ejection fraction is 55-60%. Transmitral Doppler flow pattern is Grade I-abnormal relaxation pattern. The left atrium is mildly dilated. There is mild aortic valvular stenosis. There is mild mitral valve regurgitation noted. There is mild tricuspid valve regurgitation noted. RVSP is calculated at 33 mm Hg. The IVC is normal in size and collapses >50% with inspiration.
--- NOTE | 2018-04-16 19:01 | CP.PCM.CON ---
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 dementia Plan No acute need for renal replacement therapy at this time. . Hypertension control with meds as ordered. Maintain hemodynamics stable. Avoid hypotension. hold ACEI/ARB due to recent KATELYNN. will add norvasc 5 mg Monitor Input/Output, daily weights and renal function with basic metabolic panel Check urine analysis, spot protein/creatinine, albumin/creatinine ratio Anemia work up with TSAT/Ferritin/Vitamin B12/folate, serum protein electrophoresis with immunofixation, serum free light chain assay ([place]/Lambda) Check for 25-OH vitamin D, iPTH, phosphorus level. Dose meds/antibiotics for reduced GFR. Avoid fleets enema/magnesium based laxatives. Avoid nephrotoxins/NSAIDs/ iodinated contrast (unless needed emergently) Glycemic control Further work up/management as per primary team Thanks for allowing me to participate in care of your patient. Will follow patient with you. Please call if any Qs Dr Tirso Matamoros Office: [phone] Chief Complaint; weakness Reason for consult: Acute Kidney Injury HPI: Pt is a 87 F with hx of diabetes Mellitus (20 years) with retinopathy, hypertension (years) obesity CHF, COPD on home O2, DVT, CVA ? dementia presented with complaints of gen weakness and HTN urgency Denies OTC/herbal meds or NSAIDs No recent iodinated contrast exposure. No obvious episodes of low BP. renal consult for KATELYNN on CKD 3 with baseline cr 1.6-1.7 ROS: feels better now Cardiovascular: No chest pain. Pulmonary: No shortness of breath Gastrointestinal: denies abdominal pain No nausea. No vomiting. Genitourinary: No pain while urinating. Denies blood in urine. All other negative except as mentioned in HPI Physical Examination: General Appearance: Comfortable, in no acute respiratory distress, co-operative . Vitals reviewed and noted as below Head; Atraumatic, normocephalic ENT: no ulcers no thrush. Tongue is midline. Oropharynx: no rash or ulcers. EYES: Pupils are equal, round and reactive to light accommodation. Eye muscles and extraocular movement intact. Sclera is anicteric. Neck; supple no lymphadenopathy, no thyromegaly or bruit Lungs: Normal respiratory rate/effort. Breath sounds bilateral equal and clear Heart: Normal rate. s1s2 normal. No rub or gallop. Extremities: no edema. No varicose veins Neurological: Patient is alert, awake. No focal deficit. Strength bilateral appropriate and equal Skin: Warm and dry. Normal turgor. No rash. Palpitation: Normal elasticity for age Abdomen: Abdomen is soft. Bowel sounds +. There is no abdominal tenderness, no guarding/rigidity no organomegaly Psych: lack insight and normal affect/mood MSK: no joint tenderness or swelling. Digits and nails normal, no deformity : kidney or bladder not palpable Labs/imaging reviewed. Past medical history, past surgical history, family history, social history, allergy reviewed and noted as below Family hx: no hx of CKD. Rest non-contributory echo dCHF UA 3+ protein Past Patient History - Infectious Disease Hx of Infectious Diseases: None - Past Medical History & Family History Past Medical History?: Yes - Past Social History Smoking Status: Never Smoked Alcohol: None Drugs: Denies Home Situation {Lives}: With Family - CARDIAC Hx Cardiac Disorders: Yes Hx Congestive Heart Failure: Yes Hx Hypercholesterolemia: Yes Hx Hypertension: Yes - PULMONARY Hx Respiratory Disorders: Yes Hx Asthma: Yes Hx Chronic Obstructive Pulmonary Disease (COPD): Yes Hx Pneumonia: Yes - NEUROLOGICAL Hx Neurological Disorder: Yes Hx Transient Ischemic Attacks (TIA): Yes - HEENT Hx HEENT Problems: Yes Hx Cataracts: Yes - RENAL Hx Chronic Kidney Disease: Yes (stage III) - ENDOCRINE/METABOLIC Hx Endocrine Disorders: Yes Hx Diabetes Mellitus Type 2: Yes Hx Hypothyroidism: No - HEMATOLOGICAL/ONCOLOGICAL Hx Blood Disorders: Yes Hx Anemia: Yes - INTEGUMENTARY Hx Dermatological Problems: No - MUSCULOSKELETAL/RHEUMATOLOGICAL Hx Musculoskeletal Disorders: Yes Hx Arthritis: Yes Hx Back Pain: Yes Hx Falls: No Hx Osteoporosis: Yes Hx Rheumatoid Arthritis: No - GASTROINTESTINAL Hx Gastrointestinal Disorders: No - GENITOURINARY/GYNECOLOGICAL Hx Genitourinary Disorders: Yes Hx Incontinence: Yes - PSYCHIATRIC Hx Psychophysiologic Disorder: Yes Hx Anxiety: Yes Hx Depression: Yes Hx Substance Use: No - SURGICAL HISTORY Hx Surgeries: Yes Hx Appendectomy: Yes Hx Cholecystectomy: Yes - ANESTHESIA Hx Anesthesia: Yes Hx Anesthesia Reactions: No Hx Malignant Hyperthermia: No Meds Allergies/Adverse Reactions: Allergies Allergy/AdvReac Type Severity Reaction Status Date / Time No Known Allergies Allergy Verified 04/15/18 13:43 - Medications Medications: Current Medications Alprazolam (Xanax) 0.5 mg PO HS PRN PRN Reason: Insomnia Artificial Tears (Artificial Tears) 2 drop OU Q4 PRN PRN Reason: Dry eyes Last Admin: 04/16/18 15:29 Dose: 2 drop Ascorbic Acid (Vitamin C 500 Mg Tab) 500 mg PO DAILY [facility] Last Admin: 04/16/18 10:47 Dose: 500 mg Aspirin (Aspirin Chewable) 81 mg PO DAILY [facility] Last Admin: 04/16/18 10:48 Dose: 81 mg Atorvastatin Calcium (Lipitor) 20 mg PO DAILY [facility] Last Admin: 04/16/18 10:46 Dose: 20 mg Carvedilol (Coreg) 12.5 mg PO Q12 [facility] Last Admin: 04/16/18 10:46 Dose: 12.5 mg Ergocalciferol (Drisdol 50,000 Intl Units Cap) 1 cap PO QWK@0900 [facility] Last Admin: 04/16/18 10:47 Dose: 1 cap Furosemide (Lasix) 40 mg IVP DAILY [facility] Last Admin: 04/16/18 10:40 Dose: 40 mg Glipizide (Glucotrol Xl) 2.5 mg PO BID [facility] Last Admin: 04/16/18 17:50 Dose: 2.5 mg Hydralazine HCl (Apresoline) 50 mg PO TID [facility] Last Admin: 04/16/18 17:47 Dose: 50 mg Insulin Human Lispro (Humalog) 0 units SC Q6 [facility]; Protocol Last Admin: 04/16/18 17:49 Dose: 2 units Nitroglycerin (Nitro-Bid 2% Oint) 1 ea TOP Q6 [facility] Last Admin: 04/16/18 15:30 Dose: 1 ea Results - Vital Signs Recent Vital Signs: Last Vital Signs Temp 97.9 F 04/16/18 15:59 Pulse 51 L 04/16/18 15:59 Resp 18 04/16/18 15:59 BP 169/78 H 04/16/18 17:47 Pulse Ox 98 04/16/18 15:59 - Labs Result Diagrams: 04/16/18 05:30 04/16/18 05:30 Labs: Laboratory Results - last 24 hr 04/16/18 04/16/18 04/16/18 00:55 05:16 05:30 WBC 6.8 RBC 3.74 L Hgb 10.9 L D Hct 32.4 L MCV 86.5 MCH 29.1 MCHC 33.7 RDW 14.5 Plt Count 237 Sodium Potassium Chloride Carbon Dioxide Anion Gap BUN Creatinine Est GFR ( Amer) Est GFR (Non-Af Amer) POC Glucose (mg/dL) 166 H 131 H Random Glucose Calcium Phosphorus Magnesium Iron TIBC % Saturation Ferritin Total Bilirubin AST ALT Alkaline Phosphatase Total Protein Albumin Globulin Albumin/Globulin Ratio Triglycerides Cholesterol LDL Cholesterol Direct HDL Cholesterol Vitamin B12 Thyroxine (T4) TSH 3rd Generation 04/16/18 04/16/18 04/16/18 05:30 05:48 11:00 WBC RBC Hgb Hct MCV MCH MCHC RDW Plt Count Sodium 140 Potassium 3.6 Chloride 103 Carbon Dioxide 27 Anion Gap 14 BUN 40 H Creatinine 2.6 H Est GFR ( Amer) 21 Est GFR (Non-Af Amer) 17 POC Glucose (mg/dL) 125 H Random Glucose 131 H Calcium 8.8 Phosphorus 4.4 Magnesium 1.9 Iron 30 L TIBC 243 L % Saturation 12 L Ferritin Total Bilirubin 0.5 AST 25 ALT 33 Alkaline Phosphatase 86 Total Protein 5.8 L Albumin 3.0 L D Globulin 2.8 Albumin/Globulin Ratio 1.1 Triglycerides 117 D Cholesterol 133 LDL Cholesterol Direct 63 HDL Cholesterol 34 Vitamin B12 Thyroxine (T4) 7.98 TSH 3rd Generation 1.84 04/16/18 04/16/18 04/16/18 11:00 11:33 16:27 WBC RBC Hgb Hct MCV MCH MCHC RDW Plt Count Sodium Potassium Chloride Carbon Dioxide Anion Gap BUN Creatinine Est GFR ( Amer) Est GFR (Non-Af Amer) POC Glucose (mg/dL) 279 H 198 H Random Glucose Calcium Phosphorus Magnesium Iron TIBC % Saturation Ferritin 53.7 Total Bilirubin AST ALT Alkaline Phosphatase Total Protein Albumin Globulin Albumin/Globulin Ratio Triglycerides Cholesterol LDL Cholesterol Direct HDL Cholesterol Vitamin B12 758 Thyroxine (T4) TSH 3rd Generation
[2018-04-17] MEDS: Nitroglycerin 2% Ointment Foilpak UD TOP SCH ×5 (03:52→23:18)
[2018-04-17] MEDS: Insulin Lispro (humaLOG) 100 Units/ml Inj SC SCH ×4 (08:16→22:18)
[2018-04-17] MEDS: Artificial Tears Opht Soln OU PRN ×2 (09:14→18:34)
[2018-04-17] MEDS: GlipiZIDE 2.5 mg SR Tab PO SCH ×2 (09:15→17:27)
--- NOTE | 2018-04-17 12:59 | CP.PCM.PN ---
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 dementia Plan No acute need for renal replacement therapy at this time. . Hypertension control with meds as ordered. Maintain hemodynamics stable. Avoid hypotension. hold ACEI/ARB due to recent KATELYNN. will increase norvasc 10 mg. Per family and RN, pt doesn't take meds at home Monitor Input/Output, daily weights and renal function with basic metabolic panel Check urine analysis, spot protein/creatinine, albumin/creatinine ratio Anemia work up with TSAT/Ferritin/Vitamin B12/folate, serum protein electrophoresis with immunofixation, serum free light chain assay ([place]/Lambda) Check for 25-OH vitamin D, iPTH, phosphorus level. Dose meds/antibiotics for reduced GFR. Avoid fleets enema/magnesium based laxatives. Avoid nephrotoxins/NSAIDs/ iodinated contrast (unless needed emergently) Glycemic control Further work up/management as per primary team Thanks for allowing me to participate in care of your patient. Will follow patient with you. Please call if any Qs Dr Tirso [place]amor[place] Office: [phone] Chief Complaint; weakness Reason for consult: Acute Kidney Injury HPI: Pt is a 87 F with hx of diabetes Mellitus (20 years) with retinopathy, hypertension (years) obesity CHF, COPD on home O2, DVT, CVA ? dementia presented with complaints of gen weakness and HTN urgency Denies OTC/herbal meds or NSAIDs No recent iodinated contrast exposure. No obvious episodes of low BP. renal consult for KATELYNN on CKD 3 with baseline cr 1.6-1.7 ROS: no complaints. pt unable to provide much hx reliably. Physical Examination: General Appearance: Comfortable, in no acute respiratory distress, co-operative . Vitals reviewed and noted as below Head; Atraumatic, normocephalic ENT: no ulcers no thrush. Tongue is midline. Oropharynx: no rash or ulcers. EYES: Pupils are equal, round and reactive to light accommodation. Eye muscles and extraocular movement intact. Sclera is anicteric. Neck; supple no lymphadenopathy, no thyromegaly or bruit Lungs: Normal respiratory rate/effort. Breath sounds bilateral equal and clear Heart: Normal rate. s1s2 normal. No rub or gallop. Extremities: no edema. No varicose veins Neurological: Patient is alert, awake. No focal deficit. Strength bilateral appropriate and equal ? dementia Skin: Warm and dry. Normal turgor. No rash. Palpitation: Normal elasticity for age Abdomen: Abdomen is soft. Bowel sounds +. There is no abdominal tenderness, no guarding/rigidity no organomegaly Psych: lack insight and normal affect/mood MSK: no joint tenderness or swelling. Digits and nails normal, no deformity : kidney or bladder not palpable Labs/imaging reviewed. Past medical history, past surgical history, family history, social history, allergy reviewed and noted as below Family hx: no hx of CKD. Rest non-contributory echo dCHF UA 3+ protein Objective - Vital Signs/Intake and Output Vital Signs (last 24 hours): Temp Pulse Resp BP Pulse Ox 97.4 F L 56 L 20 171/64 H 97 04/17/18 08:00 04/17/18 09:14 04/17/18 08:00 04/17/18 09:16 04/17/18 08:00 - Medications Medications: Current Medications Alprazolam (Xanax) 0.5 mg PO HS PRN PRN Reason: Insomnia Amlodipine Besylate (Norvasc) 10 mg PO DAILY [facility] Artificial Tears (Artificial Tears) 2 drop OU Q4 PRN PRN Reason: Dry eyes Last Admin: 04/17/18 09:14 Dose: 2 drop Ascorbic Acid (Vitamin C 500 Mg Tab) 500 mg PO DAILY [facility] Last Admin: 04/17/18 09:16 Dose: 500 mg Aspirin (Aspirin Chewable) 81 mg PO DAILY [facility] Last Admin: 04/17/18 09:15 Dose: 81 mg Atorvastatin Calcium (Lipitor) 20 mg PO DAILY [facility] Last Admin: 04/17/18 09:16 Dose: 20 mg Carvedilol (Coreg) 12.5 mg PO Q12 [facility] Last Admin: 04/17/18 09:15 Dose: 12.5 mg Ergocalciferol (Drisdol 50,000 Intl Units Cap) 1 cap PO QWK@0900 [facility] Last Admin: 04/16/18 10:47 Dose: 1 cap Furosemide (Lasix) 40 mg IVP DAILY [facility] Last Admin: 04/17/18 09:16 Dose: 40 mg Glipizide (Glucotrol Xl) 2.5 mg PO BID [facility] Last Admin: 04/17/18 09:15 Dose: 2.5 mg Hydralazine HCl (Apresoline) 50 mg PO TID [facility] Last Admin: 04/17/18 09:14 Dose: 50 mg Insulin Human Lispro (Humalog) 0 units SC Q6 [facility]; Protocol Last Admin: 04/17/18 08:16 Dose: Not Given Nitroglycerin (Nitro-Bid 2% Oint) 1 ea TOP Q6 [facility] Last Admin: 04/17/18 03:52 Dose: 1 ea - Labs Labs: 04/16/18 05:30 04/16/18 05:30
--- NOTE | 2018-04-17 15:19 | CP.PCM.PN ---
Subjective - Date & Time of Evaluation Date of Evaluation: 04/17/18 Time of Evaluation: 15:30 - Subjective Subjective: F/U Generalized weakness Pt sleepy since in AM as Pt's daughter, no SOB, no CP. Objective - Vital Signs/Intake and Output Vital Signs (last 24 hours): Temp Pulse Resp BP Pulse Ox 98.7 F 54 L 20 155/71 H 95 04/17/18 12:35 04/17/18 13:08 04/17/18 12:35 04/17/18 13:08 04/17/18 12:35 - Medications Medications: Current Medications Alprazolam (Xanax) 0.5 mg PO HS PRN PRN Reason: Insomnia Amlodipine Besylate (Norvasc) 10 mg PO DAILY [facility] Last Admin: 04/17/18 13:07 Dose: 10 mg Artificial Tears (Artificial Tears) 2 drop OU Q4 PRN PRN Reason: Dry eyes Last Admin: 04/17/18 09:14 Dose: 2 drop Ascorbic Acid (Vitamin C 500 Mg Tab) 500 mg PO DAILY [facility] Last Admin: 04/17/18 09:16 Dose: 500 mg Aspirin (Aspirin Chewable) 81 mg PO DAILY [facility] Last Admin: 04/17/18 09:15 Dose: 81 mg Atorvastatin Calcium (Lipitor) 20 mg PO DAILY [facility] Last Admin: 04/17/18 09:16 Dose: 20 mg Carvedilol (Coreg) 12.5 mg PO Q12 [facility] Last Admin: 04/17/18 09:15 Dose: 12.5 mg Ergocalciferol (Drisdol 50,000 Intl Units Cap) 1 cap PO QWK@0900 [facility] Last Admin: 04/16/18 10:47 Dose: 1 cap Furosemide (Lasix) 40 mg IVP DAILY [facility] Last Admin: 04/17/18 09:16 Dose: 40 mg Glipizide (Glucotrol Xl) 2.5 mg PO BID [facility] Last Admin: 04/17/18 09:15 Dose: 2.5 mg Hydralazine HCl (Apresoline) 50 mg PO TID [facility] Last Admin: 04/17/18 13:08 Dose: 50 mg Insulin Human Lispro (Humalog) 0 units SC Q6 [facility]; Protocol Last Admin: 04/17/18 08:16 Dose: Not Given Nitroglycerin (Nitro-Bid 2% Oint) 1 ea TOP Q6 [facility] Last Admin: 04/17/18 10:12 Dose: 1 ea - Labs Labs: 04/16/18 05:30 04/16/18 05:30 - Constitutional Appears: Chronically Ill - Head Exam Head Exam: NORMAL INSPECTION - Eye Exam Eye Exam: PERRL - ENT Exam ENT Exam: Normal Exam - Neck Exam Neck Exam: Normal Inspection - Respiratory Exam Respiratory Exam: Decreased Breath Sounds (at bases) - Cardiovascular Exam Cardiovascular Exam: REGULAR RHYTHM, Murmur - GI/Abdominal Exam GI & Abdominal Exam: Soft, Normal Bowel Sounds - Extremities Exam Additional comments: 1+ pitting edema BLE - Back Exam Back Exam: tenderness - Neurological Exam Additional comments: Ox2, sleepy, arousable, confused, follows commands, generalized weakness, no focal motor/sensory deficit. - Psychiatric Exam Psychiatric exam: Anxious - Skin Skin Exam: Warm Assessment and Plan (1) Metabolic encephalopathy Status: Acute (2) Generalized weakness Status: Acute (3) CHF (congestive heart failure) Status: Chronic (4) Chronic kidney disease, stage IV (severe) Status: Chronic (5) Chronic anemia Status: Chronic (6) Diabetes mellitus Status: Chronic (7) Hyperglycemia Status: Acute (8) Osteoarthritis of both knees Status: Chronic (9) COPD (chronic obstructive pulmonary disease) Status: Chronic (10) Dementia Status: Chronic (11) Obesity, morbid Status: Chronic (12) High cholesterol Status: Chronic (13) Peripheral vascular disease of lower extremity Status: Chronic (14) Hx of deep venous thrombosis Status: Chronic - Assessment and Plan (Free Text) Plan: Pt very sleepy today, arousable, confused, Bradycardia in the 40's at night and in the 50's day time, Norvasc increased due to high BP, Cardiology consult. Pt very sleepy today, arousable, very confuse. To have CT Head, Neurology consult. Nephrology consult appreciated.
--- NOTE | 2018-04-17 17:20 | CP.PCM.CON ---
History of Present Illness - History of Present Illness History of Present Illness: Neurology Consultation Note: Consult requested by Dr. Raymundo Mrs. Andrews is an 87-year-old woman with a past medical history of HTN, CHF, COPD on O2 at home, DMII, CKD, DVT on LLE (2014), Stroke in 2008, Chronic Anemia, High Cholesterol, O/A, Dementia, who was brought in to the ED on 04/15/18 for generalized weakness/confusion and found to have hypertensive emergency and encephalopathy with BP 235/[address] head is pending. Review of Systems - Review of Systems Systems not reviewed;Unavailable: Altered Mental Status Past Patient History - Infectious Disease Hx of Infectious Diseases: None - Past Medical History & Family History Past Medical History?: Yes - Past Social History Smoking Status: Never Smoked Alcohol: None Drugs: Denies Home Situation {Lives}: With Family - CARDIAC Hx Cardiac Disorders: Yes Hx Congestive Heart Failure: Yes Hx Hypercholesterolemia: Yes Hx Hypertension: Yes - PULMONARY Hx Respiratory Disorders: Yes Hx Asthma: Yes Hx Chronic Obstructive Pulmonary Disease (COPD): Yes Hx Pneumonia: Yes - NEUROLOGICAL Hx Neurological Disorder: Yes Hx Transient Ischemic Attacks (TIA): Yes - HEENT Hx HEENT Problems: Yes Hx Cataracts: Yes - RENAL Hx Chronic Kidney Disease: Yes (stage III) - ENDOCRINE/METABOLIC Hx Endocrine Disorders: Yes Hx Diabetes Mellitus Type 2: Yes Hx Hypothyroidism: No - HEMATOLOGICAL/ONCOLOGICAL Hx Blood Disorders: Yes Hx Anemia: Yes - INTEGUMENTARY Hx Dermatological Problems: No - MUSCULOSKELETAL/RHEUMATOLOGICAL Hx Musculoskeletal Disorders: Yes Hx Arthritis: Yes Hx Back Pain: Yes Hx Falls: No Hx Osteoporosis: Yes Hx Rheumatoid Arthritis: No - GASTROINTESTINAL Hx Gastrointestinal Disorders: No - GENITOURINARY/GYNECOLOGICAL Hx Genitourinary Disorders: Yes Hx Incontinence: Yes - PSYCHIATRIC Hx Psychophysiologic Disorder: Yes Hx Anxiety: Yes Hx Depression: Yes Hx Substance Use: No - SURGICAL HISTORY Hx Surgeries: Yes Hx Appendectomy: Yes Hx Cholecystectomy: Yes - ANESTHESIA Hx Anesthesia: Yes Hx Anesthesia Reactions: No Hx Malignant Hyperthermia: No Meds Allergies/Adverse Reactions: Allergies Allergy/AdvReac Type Severity Reaction Status Date / Time No Known Allergies Allergy Verified 04/15/18 13:43 - Medications Medications: Current Medications Alprazolam (Xanax) 0.5 mg PO HS PRN PRN Reason: Insomnia Amlodipine Besylate (Norvasc) 10 mg PO DAILY [facility] Last Admin: 04/17/18 13:07 Dose: 10 mg Artificial Tears (Artificial Tears) 2 drop OU Q4 PRN PRN Reason: Dry eyes Last Admin: 04/17/18 09:14 Dose: 2 drop Ascorbic Acid (Vitamin C 500 Mg Tab) 500 mg PO DAILY [facility] Last Admin: 04/17/18 09:16 Dose: 500 mg Aspirin (Aspirin Chewable) 81 mg PO DAILY [facility] Last Admin: 04/17/18 09:15 Dose: 81 mg Atorvastatin Calcium (Lipitor) 20 mg PO DAILY [facility] Last Admin: 04/17/18 09:16 Dose: 20 mg Carvedilol (Coreg) 12.5 mg PO Q12 [facility] Last Admin: 04/17/18 09:15 Dose: 12.5 mg Ergocalciferol (Drisdol 50,000 Intl Units Cap) 1 cap PO QWK@0900 [facility] Last Admin: 04/16/18 10:47 Dose: 1 cap Furosemide (Lasix) 40 mg IVP DAILY [facility] Last Admin: 04/17/18 09:16 Dose: 40 mg Glipizide (Glucotrol Xl) 2.5 mg PO BID [facility] Last Admin: 04/17/18 09:15 Dose: 2.5 mg Hydralazine HCl (Apresoline) 50 mg PO TID [facility] Last Admin: 04/17/18 13:08 Dose: 50 mg Insulin Human Lispro (Humalog) 0 units SC Q6 [facility]; Protocol Last Admin: 04/17/18 08:16 Dose: Not Given Nitroglycerin (Nitro-Bid 2% Oint) 1 ea TOP Q6 [facility] Last Admin: 04/17/18 10:12 Dose: 1 ea Physical Exam - Constitutional Appears: Well - Head Exam Head Exam: ATRAUMATIC, NORMAL INSPECTION, NORMOCEPHALIC - Eye Exam Eye Exam: EOMI, Normal appearance, PERRL Pupil Exam: NORMAL ACCOMODATION, PERRL - ENT Exam ENT Exam: Mucous Membranes Moist, Normal Exam - Neck Exam Neck exam: Positive for: Normal Inspection - Respiratory Exam Respiratory Exam: Clear to Auscultation Bilateral, NORMAL BREATHING PATTERN - Cardiovascular Exam Cardiovascular Exam: REGULAR RHYTHM, +S1, +S2 - GI/Abdominal Exam GI & Abdominal Exam: Normal Bowel Sounds, Soft. absent: Tenderness - Extremities Exam Extremities exam: Positive for: normal inspection - Back Exam Back exam: NORMAL INSPECTION - Neurological Exam Neurological exam: Altered, CN II-XII Intact, Normal Gait, Reflexes Normal Additional comments: Somnolent, but follows commands. Is confused, but not agitated. Moves all extremities, reflexes are normal, plantar responses are upgoing. - Psychiatric Exam Psychiatric exam: Normal Affect, Normal Mood - Skin Skin Exam: Dry, Intact, Normal Color, Warm Results - Vital Signs Recent Vital Signs: Last Vital Signs Temp 97.6 F 04/17/18 16:13 Pulse 52 L 04/17/18 16:13 Resp 18 04/17/18 16:13 BP 137/68 04/17/18 16:13 Pulse Ox 95 04/17/18 16:13 - Labs Result Diagrams: 04/16/18 05:30 04/16/18 05:30 Labs: Laboratory Results - last 24 hr 04/16/18 04/16/18 04/17/18 05:30 21:30 11:13 POC Glucose (mg/dL) 117 H 297 H Hemoglobin A1c 7.4 H 04/17/18 16:17 POC Glucose (mg/dL) 329 H Hemoglobin A1c Assessment & Plan (1) Toxic metabolic encephalopathy Assessment and Plan: Likely a combination of baseline dementia, polypharmacy (including Xanax), worsening renal failure, hyperglycemia and uncontrolled hypertension. I recommend medical management of the underlying conditions. CT scan of the head would be helpful to rule out an acute pathology. Thank you for this consultation. Status: Acute
--- NOTE | 2018-04-17 17:26 | US ---
Date of service: 04/16/2018 PROCEDURE: Bilateral lower extremity venous duplex Doppler. HISTORY: le hx of dvt COMPARISON: Right lower extremity ultrasound performed 12/08/17 TECHNIQUE: Bilateral common femoral, superficial femoral, popliteal and posterior tibial veins were evaluated. Flow was assessed with color Doppler, compressibility, assessment of phasic flow and augmentation response. FINDINGS: COMMON FEMORAL VEIN: Right CFV: Unremarkable. Left CFV: Unremarkable. SUPERFICIAL FEMORAL VEIN: Right SFV: Unremarkable. Left SFV: Unremarkable. POPLITEAL VEIN: Right Popliteal: Unremarkable. Left Popliteal: Unremarkable. POSTERIOR TIBIAL VEIN: Right PTV: Unremarkable. Left PTV: Unremarkable. OTHER FINDINGS: None. IMPRESSION: No evidence of deep venous thrombosis.
[2018-04-18] MEDS: Insulin Lispro (humaLOG) 100 Units/ml Inj SC SCH ×4 (05:19→23:12)
[2018-04-18] MEDS: Nitroglycerin 2% Ointment Foilpak UD TOP SCH ×4 (05:20→21:52)
[2018-04-18] MEDS: GlipiZIDE 2.5 mg SR Tab PO SCH ×2 (08:36→16:25)
--- NOTE | 2018-04-18 09:33 | CP.PCM.PN ---
Subjective - Date & Time of Evaluation Date of Evaluation: 04/18/18 Time of Evaluation: 09:33 - Subjective Subjective: Patient awake and conscious not in acute distress Vital signs noted to be stable Shortness of breath Objective - Vital Signs/Intake and Output Vital Signs (last 24 hours): Temp Pulse Resp BP Pulse Ox 98.1 F 67 18 170/69 H 95 04/18/18 09:19 04/18/18 09:19 04/18/18 09:19 04/18/18 09:19 04/18/18 09:19 - Medications Medications: Current Medications Alprazolam (Xanax) 0.5 mg PO HS PRN PRN Reason: Insomnia Amlodipine Besylate (Norvasc) 10 mg PO DAILY [facility]S AT [facility] Last Admin: 04/18/18 08:37 Dose: 10 mg Artificial Tears (Artificial Tears) 2 drop OU Q4 PRN PRN Reason: Dry eyes Last Admin: 04/17/18 18:34 Dose: 2 drop Ascorbic Acid (Vitamin C 500 Mg Tab) 500 mg PO DAILY [facility] 234 BEDS AT [facility] Last Admin: 04/18/18 08:38 Dose: 500 mg Aspirin (Aspirin Chewable) 81 mg PO DAILY [facility] 234 BEDS AT [facility] Last Admin: 04/18/18 08:36 Dose: 81 mg Atorvastatin Calcium (Lipitor) 20 mg PO DAILY [facility]CLUDE 234 BEDS AT [facility] Last Admin: 04/18/18 08:38 Dose: 20 mg Carvedilol (Coreg) 12.5 mg PO Q12 [facility]CLUDE 234 BEDS AT [facility] Last Admin: 04/18/18 08:37 Dose: 12.5 mg Ergocalciferol (Drisdol 50,000 Intl Units Cap) 1 cap PO QWK@0900 [facility] 234 BEDS AT [facility] Last Admin: 04/16/18 10:47 Dose: 1 cap Furosemide (Lasix) 40 mg IVP DAILY [facility] 234 BEDS AT [facility] Last Admin: 04/18/18 08:36 Dose: 40 mg Glipizide (Glucotrol Xl) 2.5 mg PO BID [facility] 234 BEDS AT [facility] Last Admin: 04/18/18 08:36 Dose: 2.5 mg Hydralazine HCl (Apresoline) 50 mg PO TID [facility] 234 BEDS AT [facility] Last Admin: 04/18/18 08:38 Dose: 50 mg Insulin Human Lispro (Humalog) 0 units SC Q6 [facility] 234 BEDS AT [facility]; Protocol Last Admin: 04/18/18 05:19 Dose: Not Given Nitroglycerin (Nitro-Bid 2% Oint) 1 ea TOP Q6 [facility] 234 BEDS AT [facility] Last Admin: 04/18/18 05:20 Dose: Not Given - Labs Labs: 04/16/18 05:30 04/16/18 05:30 - Constitutional Appears: No Acute Distress - Eye Exam Eye Exam: Conjunctival injection - ENT Exam ENT Exam: Mucous Membranes Moist - Neck Exam Neck Exam: absent: Lymphadenopathy - Respiratory Exam Respiratory Exam: NORMAL BREATHING PATTERN - Cardiovascular Exam Cardiovascular Exam: absent: Gallop, JVD, Rubs - GI/Abdominal Exam GI & Abdominal Exam: Soft, Normal Bowel Sounds - Extremities Exam Extremities Exam: absent: Calf Tenderness - Back Exam Back Exam: absent: CVA tenderness (L), CVA tenderness (R) - Neurological Exam Neurological Exam: Alert - Skin Skin Exam: absent: Cyanosis Assessment and Plan (1) Chronic kidney disease, stage III (moderate) Assessment & Plan: Assessment: Stable HTN urgency Acute Kidney Injury (N17.9) likely hemodynamic due to BP fluctuations and impaired renal autoregulation superimposed on chronic kidney disease stage III Patient has chronic history of hyperkalemia and she is taken Kayexalate as outpatient Wednesday 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 dementia Plan No acute need for renal replacement therapy at this time. . Hypertension control with meds as ordered. Maintain hemodynamics stable. Avoid hypotension. hold ACEI/ARB due to recent KATELYNN. will increase norvasc 10 mg. Per family and RN, pt doesn't take meds at home Monitor Input/Output, daily weights and renal function with basic metabolic panel Status: Acute (2) Generalized weakness Status: Acute (3) Dementia Status: Chronic
--- NOTE | 2018-04-18 10:55 | CP.PCM.CON ---
<Ancelmo Donato - Last Filed: 04/18/18 18:21> History of Present Illness - History of Present Illness History of Present Illness: Ancelmo Donato DO PGY1 - Internal Medicine Merchandising Consultant - Cardiology Note for Dr. Jamil Patient is confused upon evaluation; history obtained from chart review / family 87F w/ a PMH of HTN, CHF, DM, CKD, DVT, Stroke, HLD, Dementia, brought to [facility] ED on 04/15/18 w/ c/o generalized weakness; upon presentation patient BP elevated to 211/89. ECHO performed on 04/15 - notable for EF 55-60% and diastolic dysfunction; Lateral Wall ST depressions on admission EKG, Troponins negative x3. Cardiology consulted for elevated BNP. Patient was previously seen by Dr. Jamil 09/2017; Previous NST + for reversible ischemia in LCX territory; w/ concerns of triple vessel disease as well. At the time patient was offered cardiac cath however cancelled as per family's request. Upon evaluation patient denies any acute/active chest pain/ sob/ palpitations. She is unable to provide any further meaningful history. Per Chart Review: No prior social history Review of Systems - Review of Systems Systems not reviewed;Unavailable: Dementia Past Patient History - Infectious Disease Hx of Infectious Diseases: None - Past Medical History & Family History Past Medical History?: Yes - Past Social History Smoking Status: Never Smoked Alcohol: None Drugs: Denies Home Situation {Lives}: With Family - CARDIAC Hx Cardiac Disorders: Yes Hx Congestive Heart Failure: Yes Hx Hypercholesterolemia: Yes Hx Hypertension: Yes - PULMONARY Hx Respiratory Disorders: Yes Hx Asthma: Yes Hx Chronic Obstructive Pulmonary Disease (COPD): Yes Hx Pneumonia: Yes - NEUROLOGICAL Hx Neurological Disorder: Yes Hx Transient Ischemic Attacks (TIA): Yes - HEENT Hx HEENT Problems: Yes Hx Cataracts: Yes - RENAL Hx Chronic Kidney Disease: Yes (stage III) - ENDOCRINE/METABOLIC Hx Endocrine Disorders: Yes Hx Diabetes Mellitus Type 2: Yes Hx Hypothyroidism: No - HEMATOLOGICAL/ONCOLOGICAL Hx Blood Disorders: Yes Hx Anemia: Yes - INTEGUMENTARY Hx Dermatological Problems: No - MUSCULOSKELETAL/RHEUMATOLOGICAL Hx Musculoskeletal Disorders: Yes Hx Arthritis: Yes Hx Back Pain: Yes Hx Falls: No Hx Osteoporosis: Yes Hx Rheumatoid Arthritis: No - GASTROINTESTINAL Hx Gastrointestinal Disorders: No - GENITOURINARY/GYNECOLOGICAL Hx Genitourinary Disorders: Yes Hx Incontinence: Yes - PSYCHIATRIC Hx Psychophysiologic Disorder: Yes Hx Anxiety: Yes Hx Depression: Yes Hx Substance Use: No - SURGICAL HISTORY Hx Surgeries: Yes Hx Appendectomy: Yes Hx Cholecystectomy: Yes - ANESTHESIA Hx Anesthesia: Yes Hx Anesthesia Reactions: No Hx Malignant Hyperthermia: No Meds Allergies/Adverse Reactions: Allergies Allergy/AdvReac Type Severity Reaction Status Date / Time No Known Allergies Allergy Verified 04/15/18 13:43 - Medications Medications: Current Medications Alprazolam (Xanax) 0.5 mg PO HS PRN PRN Reason: Insomnia Amlodipine Besylate (Norvasc) 10 mg PO DAILY [facility] Last Admin: 04/18/18 08:37 Dose: 10 mg Artificial Tears (Artificial Tears) 2 drop OU Q4 PRN PRN Reason: Dry eyes Last Admin: 04/17/18 18:34 Dose: 2 drop Ascorbic Acid (Vitamin C 500 Mg Tab) 500 mg PO DAILY [facility] Last Admin: 04/18/18 08:38 Dose: 500 mg Aspirin (Aspirin Chewable) 81 mg PO DAILY [facility] Last Admin: 04/18/18 08:36 Dose: 81 mg Atorvastatin Calcium (Lipitor) 20 mg PO DAILY [facility] Last Admin: 04/18/18 08:38 Dose: 20 mg Carvedilol (Coreg) 12.5 mg PO Q12 [facility] Last Admin: 04/18/18 08:37 Dose: 12.5 mg Ergocalciferol (Drisdol 50,000 Intl Units Cap) 1 cap PO QWK@0900 [facility] Last Admin: 04/16/18 10:47 Dose: 1 cap Furosemide (Lasix) 40 mg IVP DAILY [facility] Last Admin: 04/18/18 08:36 Dose: 40 mg Glipizide (Glucotrol Xl) 2.5 mg PO BID [facility] Last Admin: 04/18/18 08:36 Dose: 2.5 mg Hydralazine HCl (Apresoline) 50 mg PO TID [facility] Last Admin: 04/18/18 08:38 Dose: 50 mg Insulin Human Lispro (Humalog) 0 units SC Q6 [facility]; Protocol Last Admin: 04/18/18 05:19 Dose: Not Given Nitroglycerin (Nitro-Bid 2% Oint) 1 ea TOP Q6 [facility] Last Admin: 04/18/18 05:20 Dose: Not Given Physical Exam - Constitutional Appears: Well, Non-toxic, No Acute Distress - Head Exam Head Exam: ATRAUMATIC, NORMOCEPHALIC - Eye Exam Eye Exam: EOMI, Normal appearance, PERRL - Respiratory Exam Respiratory Exam: Clear to Auscultation Bilateral, NORMAL BREATHING PATTERN - Cardiovascular Exam Cardiovascular Exam: +S1, +S2, Systolic Murmur (Aortic, LSB, and Mitral ) - GI/Abdominal Exam GI & Abdominal Exam: Soft. absent: Tenderness - Extremities Exam Additional comments: 2+ Pitting edema bilaterally - Neurological Exam Neurological exam: Alert, Oriented x3 - Psychiatric Exam Additional comments: Confused - Skin Skin Exam: Dry, Intact, Normal Color, Warm Results - Vital Signs Recent Vital Signs: Last Vital Signs Temp 98.1 F 04/18/18 09:19 Pulse 67 04/18/18 09:19 Resp 18 04/18/18 09:19 BP 170/69 H 04/18/18 09:19 Pulse Ox 95 04/18/18 09:19 - Labs Result Diagrams: 04/18/18 11:41 04/18/18 11:26 Labs: Laboratory Results - last 24 hr 04/16/18 04/17/18 04/17/18 05:30 11:13 16:17 POC Glucose (mg/dL) 297 H 329 H Hemoglobin A1c 7.4 H 04/17/18 21:56 POC Glucose (mg/dL) 132 H Hemoglobin A1c Assessment & Plan (1) Hypertensive urgency Status: Acute (2) CHF (congestive heart failure) Status: Chronic Priority: High - Assessment and Plan (Free Text) Plan: Prior NST w/ ischemic changes noted in LCX territory No plans for cardiac catheterization at this time; will continue w/ medical management only C/w Norvasc ASA Lipitor Lasix 40 IVP Daily Hydralazine 50 TID Further reccs per Dr. Jamil <Austen Jamil - Last Filed: 04/18/18 23:15> Meds - Medications Medications: Current Medications Alprazolam (Xanax) 0.5 mg PO HS PRN PRN Reason: Insomnia Amlodipine Besylate (Norvasc) 10 mg PO DAILY [facility] Last Admin: 04/18/18 08:37 Dose: 10 mg Artificial Tears (Artificial Tears) 2 drop OU Q4 PRN PRN Reason: Dry eyes Last Admin: 04/18/18 18:53 Dose: 2 drop Ascorbic Acid (Vitamin C 500 Mg Tab) 500 mg PO DAILY [facility] Last Admin: 04/18/18 08:38 Dose: 500 mg Aspirin (Aspirin Chewable) 81 mg PO DAILY [facility] Last Admin: 04/18/18 08:36 Dose: 81 mg Atorvastatin Calcium (Lipitor) 20 mg PO DAILY [facility] Last Admin: 04/18/18 08:38 Dose: 20 mg Carvedilol (Coreg) 12.5 mg PO Q12 [facility] Last Admin: 04/18/18 21:49 Dose: 12.5 mg Ergocalciferol (Drisdol 50,000 Intl Units Cap) 1 cap PO QWK@0900 [facility] Last Admin: 04/16/18 10:47 Dose: 1 cap Furosemide (Lasix) 40 mg IVP DAILY [facility] Last Admin: 04/18/18 08:36 Dose: 40 mg Glipizide (Glucotrol Xl) 2.5 mg PO BID [facility] Last Admin: 04/18/18 16:25 Dose: 2.5 mg Hydralazine HCl (Apresoline) 50 mg PO TID [facility] Last Admin: 04/18/18 16:25 Dose: 50 mg Insulin Human Lispro (Humalog) 0 units SC Q6 [facility]; Protocol Last Admin: 04/18/18 23:12 Dose: Not Given Nitroglycerin (Nitro-Bid 2% Oint) 1 ea TOP Q6 [facility] Last Admin: 04/18/18 21:52 Dose: 1 ea Results - Vital Signs Recent Vital Signs: Last Vital Signs Temp 98.7 F 04/18/18 20:10 Pulse 66 04/18/18 21:52 Resp 20 04/18/18 20:10 BP 128/68 04/18/18 21:52 Pulse Ox 96 04/18/18 20:10 - Labs Result Diagrams: 04/18/18 11:41 04/18/18 11:26 Labs: Laboratory Results - last 24 hr 04/16/18 04/18/18 04/18/18 05:30 11:15 11:26 WBC RBC Hgb Hct MCV MCH MCHC RDW Plt Count Sodium 139 Potassium 3.6 Chloride 101 Carbon Dioxide 22 Anion Gap 20 BUN 57 H Creatinine 4.5 H Est GFR ( Amer) 11 Est GFR (Non-Af Amer) 9 POC Glucose (mg/dL) 173 H Random Glucose 175 H Calcium 8.4 PTH Intact Whole Molec 130 H 04/18/18 04/18/18 11:41 16:19 WBC 7.6 RBC 3.74 L Hgb 10.8 L Hct 32.5 L MCV 86.8 MCH 28.8 MCHC 33.1 RDW 14.9 H Plt Count 262 Sodium Potassium Chloride Carbon Dioxide Anion Gap BUN Creatinine Est GFR ( Amer) Est GFR (Non-Af Amer) POC Glucose (mg/dL) 289 H Random Glucose Calcium PTH Intact Whole Molec Attending/Attestation - Attestation I have personally seen and examined this patient.: Yes I have fully participated in the care of the patient.: Yes I have reviewed all pertinent clinical information: Yes Notes (Text): 04/18/18 23:14 cont asa, statins cont low dose bb cont norvasc and hydralazine hold lasix 04/18/18 23:15 04/18/18 23:15
[2018-04-18 11:49] LABS: HEMOGLOBIN 10.8 g/dL (12.0-16.0); MEAN CELL VOLUME 86.8 fl (81.0-99.0); MEAN CORPUSCULAR HEMOGLOBIN 28.8 pg (27.0-31.0); MEAN CORPUSCULAR HGB CONC 33.1 g/dL (33.0-37.0); RBC 3.74 Mil/uL (3.80-5.20); RED CELL DISTRIBUTION WIDTH 14.9 % (11.5-14.5); WHITE BLOOD COUNT 7.6 K/uL (4.8-10.8)
[2018-04-18 11:54] LABS: CALCIUM 8.4 mg/dL (8.4-10.2)
--- NOTE | 2018-04-18 12:06 | CARD ---
APPROVED REPORT Date of service: 04/18/2018 EKG Measurement Heart [id number] <Conclusion> Normal sinus rhythm T wave abnormality, consider inferior ischemia Abnormal ECG
--- NOTE | 2018-04-18 13:44 | CT ---
Date of service: 04/18/2018 PROCEDURE: CT HEAD WITHOUT CONTRAST. HISTORY: Mental status change, drowsiness. COMPARISON: None available. TECHNIQUE: Axial computed tomography images were obtained through the head/brain without intravenous contrast. Radiation dose: Total exam DLP = 851.92 mGy-cm. This CT exam was performed using one or more of the following dose reduction techniques: Automated exposure control, adjustment of the mA and/or kV according to patient size, and/or use of iterative reconstruction technique. FINDINGS: HEMORRHAGE: No intracranial hemorrhage. BRAIN: No mass effect or edema. Mild atrophy and chronic periventricular white matter ischemic disease. VENTRICLES: Unremarkable. No hydrocephalus. CALVARIUM: Unremarkable. PARANASAL SINUSES: Unremarkable as visualized. No significant inflammatory changes. MASTOID AIR CELLS: Unremarkable as visualized. No inflammatory changes. OTHER FINDINGS: None. IMPRESSION: No acute hemorrhage.
--- NOTE | 2018-04-18 14:44 | CP.PCM.PN ---
Subjective - Date & Time of Evaluation Date of Evaluation: 04/18/18 Time of Evaluation: 12:00 - Subjective Subjective: F/U Generalized weakness. alert,answer questions, follows commands, feeling better, no SOB, no C/P Objective - Vital Signs/Intake and Output Vital Signs (last 24 hours): Temp Pulse Resp BP Pulse Ox 97.5 F L 67 20 184/71 H 97 04/18/18 13:07 04/18/18 13:07 04/18/18 13:07 04/18/18 13:07 04/18/18 13:07 - Medications Medications: Current Medications Alprazolam (Xanax) 0.5 mg PO HS PRN PRN Reason: Insomnia Amlodipine Besylate (Norvasc) 10 mg PO DAILY [facility] Last Admin: 04/18/18 08:37 Dose: 10 mg Artificial Tears (Artificial Tears) 2 drop OU Q4 PRN PRN Reason: Dry eyes Last Admin: 04/17/18 18:34 Dose: 2 drop Ascorbic Acid (Vitamin C 500 Mg Tab) 500 mg PO DAILY [facility] Last Admin: 04/18/18 08:38 Dose: 500 mg Aspirin (Aspirin Chewable) 81 mg PO DAILY [facility] Last Admin: 04/18/18 08:36 Dose: 81 mg Atorvastatin Calcium (Lipitor) 20 mg PO DAILY [facility] Last Admin: 04/18/18 08:38 Dose: 20 mg Carvedilol (Coreg) 12.5 mg PO Q12 [facility] Last Admin: 04/18/18 08:37 Dose: 12.5 mg Ergocalciferol (Drisdol 50,000 Intl Units Cap) 1 cap PO QWK@0900 [facility] Last Admin: 04/16/18 10:47 Dose: 1 cap Furosemide (Lasix) 40 mg IVP DAILY [facility] Last Admin: 04/18/18 08:36 Dose: 40 mg Glipizide (Glucotrol Xl) 2.5 mg PO BID [facility] Last Admin: 04/18/18 08:36 Dose: 2.5 mg Hydralazine HCl (Apresoline) 50 mg PO TID [facility] Last Admin: 04/18/18 13:00 Dose: 50 mg Insulin Human Lispro (Humalog) 0 units SC Q6 [facility]; Protocol Last Admin: 04/18/18 11:30 Dose: 2 units Nitroglycerin (Nitro-Bid 2% Oint) 1 ea TOP Q6 [facility] Last Admin: 04/18/18 13:00 Dose: 1 ea - Labs Labs: 04/18/18 11:41 04/18/18 11:26 - Constitutional Appears: Chronically Ill - Head Exam Head Exam: NORMAL INSPECTION - Eye Exam Eye Exam: PERRL - ENT Exam ENT Exam: Normal Exam - Neck Exam Neck Exam: Normal Inspection - Respiratory Exam Respiratory Exam: Decreased Breath Sounds (at bases) - Cardiovascular Exam Cardiovascular Exam: REGULAR RHYTHM, Murmur - GI/Abdominal Exam GI & Abdominal Exam: Soft, Normal Bowel Sounds - Extremities Exam Additional comments: Edema BLE - Back Exam Back Exam: tenderness - Neurological Exam Neurological Exam: Alert Additional comments: Ox2, confused, follows commands, no focal motor/sensory deficit. - Psychiatric Exam Additional comments: Calm - Skin Skin Exam: Warm Assessment and Plan (1) Metabolic encephalopathy Status: Acute (2) Generalized weakness Status: Acute (3) CHF (congestive heart failure) Status: Chronic (4) Chronic kidney disease, stage IV (severe) Status: Chronic (5) Chronic anemia Status: Chronic (6) Diabetes mellitus Status: Chronic (7) Hyperglycemia Status: Acute (8) Osteoarthritis of both knees Status: Chronic (9) COPD (chronic obstructive pulmonary disease) Status: Chronic (10) Dementia Status: Chronic (11) Obesity, morbid Status: Chronic (12) High cholesterol Status: Chronic (13) Peripheral vascular disease of lower extremity Status: Chronic (14) Hx of deep venous thrombosis Status: Chronic - Assessment and Plan (Free Text) Plan: Patient today, able to talk, improved, renal function worsening, BP and BS control, fu Renal
--- NOTE | 2018-04-18 17:04 | CP.PCM.PN ---
Subjective - Date & Time of Evaluation Date of Evaluation: 04/18/18 Time of Evaluation: 17:02 - Subjective Subjective: Neuro Follow-Up Note: Mrs. Andrews was evaluated this afternoon at bedside. Family present at bedside. Pt admits to feeling better. Daughter also states that the pt is less drowsy and is more awake today. Pt denies h/a, dizziness, visual changes, chest pain, palpitations, sob, cough, abd pain, n/v/d. Objective - Vital Signs/Intake and Output Vital Signs (last 24 hours): Temp Pulse Resp BP Pulse Ox 97.8 F 57 L 18 151/72 H 96 04/18/18 16:37 04/18/18 16:37 04/18/18 16:37 04/18/18 16:37 04/18/18 16:37 - Medications Medications: Current Medications Alprazolam (Xanax) 0.5 mg PO HS PRN PRN Reason: Insomnia Amlodipine Besylate (Norvasc) 10 mg PO DAILY [facility] Last Admin: 04/18/18 08:37 Dose: 10 mg Artificial Tears (Artificial Tears) 2 drop OU Q4 PRN PRN Reason: Dry eyes Last Admin: 04/17/18 18:34 Dose: 2 drop Ascorbic Acid (Vitamin C 500 Mg Tab) 500 mg PO DAILY [facility] Last Admin: 04/18/18 08:38 Dose: 500 mg Aspirin (Aspirin Chewable) 81 mg PO DAILY [facility] Last Admin: 04/18/18 08:36 Dose: 81 mg Atorvastatin Calcium (Lipitor) 20 mg PO DAILY [facility] Last Admin: 04/18/18 08:38 Dose: 20 mg Carvedilol (Coreg) 12.5 mg PO Q12 [facility] Last Admin: 04/18/18 08:37 Dose: 12.5 mg Ergocalciferol (Drisdol 50,000 Intl Units Cap) 1 cap PO QWK@0900 [facility] Last Admin: 04/16/18 10:47 Dose: 1 cap Furosemide (Lasix) 40 mg IVP DAILY [facility] Last Admin: 04/18/18 08:36 Dose: 40 mg Glipizide (Glucotrol Xl) 2.5 mg PO BID [facility] Last Admin: 04/18/18 16:25 Dose: 2.5 mg Hydralazine HCl (Apresoline) 50 mg PO TID [facility] Last Admin: 04/18/18 16:25 Dose: 50 mg Insulin Human Lispro (Humalog) 0 units SC Q6 [facility]; Protocol Last Admin: 04/18/18 16:25 Dose: 4 units Nitroglycerin (Nitro-Bid 2% Oint) 1 ea TOP Q6 [facility] Last Admin: 04/18/18 16:24 Dose: 1 ea - Labs Labs: 04/18/18 11:41 04/18/18 11:26 - Constitutional Appears: Well, Non-toxic, No Acute Distress - Head Exam Head Exam: ATRAUMATIC, NORMAL INSPECTION, NORMOCEPHALIC - Eye Exam Eye Exam: EOMI, Normal appearance Pupil Exam: NORMAL ACCOMODATION, PERRL - ENT Exam ENT Exam: Mucous Membranes Moist - Neck Exam Neck Exam: Full ROM, Normal Inspection - Respiratory Exam Respiratory Exam: NORMAL BREATHING PATTERN - GI/Abdominal Exam GI & Abdominal Exam: Soft - Extremities Exam Extremities Exam: Full ROM Additional comments: generalized weakness 2/2 deconditioning - Back Exam Back Exam: Full ROM - Neurological Exam Neurological Exam: Alert, Awake, CN II-XII Intact, Reflexes Normal Neuro motor strength exam: Left Upper Extremity: 4, Right Upper Extremity: 4, Left Lower Extremity: 3, Right Lower Extremity: 3 Additional comments: Awake, alert, forgetful Speech clear, fluid No sensory deficits noted. Generalized weakness 2/2 deconditioning No tremors - Psychiatric Exam Psychiatric exam: Normal Affect, Normal Mood - Skin Skin Exam: Normal Color Assessment and Plan (1) Toxic metabolic encephalopathy Assessment & Plan: -Continue current treatment -Treat underlying issues and worsening renal function. -Continue to hold medications that may cause drowsiness or delirium. Pt's daughter states she was on Clonidine BID at home (not being given here). -Continue PT -Notify neuro of acute changes in pt's condition. Discussed with Dr. Marcano Status: Acute
[2018-04-18] MEDS: Artificial Tears Opht Soln OU PRN (18:53)
--- NOTE | 2018-04-19 08:55 | CP.PCM.PN ---
Subjective - Date & Time of Evaluation Date of Evaluation: 04/19/18 Time of Evaluation: 08:53 - Subjective Subjective: Patient is awake and conscious not in acute distress Vital signs noted with blood pressure somewhat elevated still above target Worsening kidney function serum creatinine rising Nausea no vomiting Objective - Vital Signs/Intake and Output Vital Signs (last 24 hours): Temp Pulse Resp BP Pulse Ox 97.4 F L 67 20 161/70 H 97 04/19/18 08:13 04/19/18 08:13 04/19/18 08:13 04/19/18 08:13 04/19/18 08:13 - Medications Medications: Current Medications Alprazolam (Xanax) 0.5 mg PO HS PRN PRN Reason: Insomnia Amlodipine Besylate (Norvasc) 10 mg PO DAILY [facility] Last Admin: 04/18/18 08:37 Dose: 10 mg Artificial Tears (Artificial Tears) 2 drop OU Q4 PRN PRN Reason: Dry eyes Last Admin: 04/18/18 18:53 Dose: 2 drop Ascorbic Acid (Vitamin C 500 Mg Tab) 500 mg PO DAILY [facility] Last Admin: 04/18/18 08:38 Dose: 500 mg Aspirin (Aspirin Chewable) 81 mg PO DAILY [facility] Last Admin: 04/18/18 08:36 Dose: 81 mg Atorvastatin Calcium (Lipitor) 20 mg PO DAILY [facility] Last Admin: 04/18/18 08:38 Dose: 20 mg Carvedilol (Coreg) 12.5 mg PO Q12 [facility] Last Admin: 04/18/18 21:49 Dose: 12.5 mg Clonidine HCl (Catapres) 0.1 mg PO BID [facility] Ergocalciferol (Drisdol 50,000 Intl Units Cap) 1 cap PO QWK@0900 [facility] Last Admin: 04/16/18 10:47 Dose: 1 cap Glipizide (Glucotrol Xl) 2.5 mg PO BID [facility] Last Admin: 04/18/18 16:25 Dose: 2.5 mg Hydralazine HCl (Apresoline) 50 mg PO TID [facility] Last Admin: 04/18/18 16:25 Dose: 50 mg Insulin Human Lispro (Humalog) 0 units SC Q6 [facility]; Protocol Last Admin: 04/18/18 23:12 Dose: Not Given Nitroglycerin (Nitro-Bid 2% Oint) 1 ea TOP Q6 [facility] Last Admin: 04/18/18 21:52 Dose: 1 ea - Labs Labs: 04/18/18 11:41 04/18/18 11:26 - Constitutional Appears: No Acute Distress - Eye Exam Eye Exam: Conjunctival injection - ENT Exam ENT Exam: Mucous Membranes Moist - Respiratory Exam Respiratory Exam: NORMAL BREATHING PATTERN - Cardiovascular Exam Cardiovascular Exam: absent: Gallop, JVD, Rubs - GI/Abdominal Exam GI & Abdominal Exam: Soft, Normal Bowel Sounds - Extremities Exam Extremities Exam: absent: Calf Tenderness - Back Exam Back Exam: absent: CVA tenderness (L), CVA tenderness (R) - Neurological Exam Neurological Exam: Alert - Skin Skin Exam: absent: Cyanosis Assessment and Plan (1) Chronic kidney disease, stage III (moderate) Assessment & Plan: Chronic kidney disease stage III and a line with superimposed acute kidney inju ry and worsening kidney function probably related to hemodynamic changes and her underlying disease diabetes mellitus and hypertension History of hyperkalemia however potassium is okay now Recommendation Hold Lasix immediately Get serum phosphorus and PTH level And keep monitoring kidney function closely Status: Acute (2) Generalized weakness Status: Acute (3) Dementia Status: Chronic
[2018-04-19] MEDS: Insulin Lispro (humaLOG) 100 Units/ml Inj SC SCH ×4 (09:55→22:37)
[2018-04-19] MEDS: GlipiZIDE 2.5 mg SR Tab PO SCH ×2 (09:55→18:00)
[2018-04-19] MEDS: Nitroglycerin 2% Ointment Foilpak UD TOP SCH ×4 (10:00→22:42)
--- NOTE | 2018-04-19 10:45 | CP.PCM.PN ---
<Ancelmo Donato - Last Filed: 04/19/18 16:28> Subjective - Date & Time of Evaluation Date of Evaluation: 04/19/18 Time of Evaluation: 10:45 - Subjective Subjective: Ancelmo Donato DO PGY1 - Cardiology Note For Dr. Jamil Patient was seen and evaluated at bedside this morning. During evaluation patient was working w/ PT ; Ambulating w/ walker; no chest pain or SOB noted Satting 96% HR 67 during ambulation. Objective - Vital Signs/Intake and Output Vital Signs (last 24 hours): Temp Pulse Resp BP Pulse Ox 97.4 F L 67 20 161/70 H 97 04/19/18 08:13 04/19/18 10:00 04/19/18 08:13 04/19/18 10:00 04/19/18 08:13 - Medications Medications: Current Medications Alprazolam (Xanax) 0.5 mg PO HS PRN PRN Reason: Insomnia Amlodipine Besylate (Norvasc) 10 mg PO DAILY [facility] Last Admin: 04/19/18 09:56 Dose: 10 mg Artificial Tears (Artificial Tears) 2 drop OU Q4 PRN PRN Reason: Dry eyes Last Admin: 04/18/18 18:53 Dose: 2 drop Ascorbic Acid (Vitamin C 500 Mg Tab) 500 mg PO DAILY [facility] Last Admin: 04/19/18 09:57 Dose: 500 mg Aspirin (Aspirin Chewable) 81 mg PO DAILY [facility] Last Admin: 04/19/18 09:48 Dose: 81 mg Atorvastatin Calcium (Lipitor) 20 mg PO DAILY [facility] Last Admin: 04/19/18 09:56 Dose: 20 mg Carvedilol (Coreg) 12.5 mg PO Q12 [facility] Last Admin: 04/19/18 09:48 Dose: 12.5 mg Clonidine HCl (Catapres) 0.1 mg PO BID [facility] Ergocalciferol (Drisdol 50,000 Intl Units Cap) 1 cap PO QWK@0900 [facility] Last Admin: 04/16/18 10:47 Dose: 1 cap Glipizide (Glucotrol Xl) 2.5 mg PO BID [facility] Last Admin: 04/19/18 09:55 Dose: 2.5 mg Hydralazine HCl (Apresoline) 50 mg PO TID [facility] Last Admin: 04/19/18 09:47 Dose: 50 mg Insulin Human Lispro (Humalog) 0 units SC Q6 [facility]; Protocol Last Admin: 04/19/18 09:55 Dose: 1 units Nitroglycerin (Nitro-Bid 2% Oint) 1 ea TOP Q6 [facility] Last Admin: 04/19/18 10:00 Dose: 1 ea - Labs Labs: 04/18/18 11:41 04/18/18 11:26 - Constitutional Appears: Well, Non-toxic, No Acute Distress - Head Exam Head Exam: ATRAUMATIC, NORMOCEPHALIC - Eye Exam Eye Exam: EOMI, Normal appearance, PERRL - Respiratory Exam Respiratory Exam: Clear to Auscultation Bilateral, NORMAL BREATHING PATTERN - Cardiovascular Exam Cardiovascular Exam: +S1, +S2, Systolic Murmur (Aortic, LSB, and Mitral ) - GI/Abdominal Exam GI & Abdominal Exam: Soft. absent: Tenderness - Extremities Exam Additional comments: 2+ Pitting edema bilaterally - Neurological Exam Neurological exam: Alert, Oriented x3 - Psychiatric Exam Additional comments: Confused - Skin Skin Exam: Dry, Intact, Normal Color, Warm Assessment and Plan (1) Hypertensive urgency Status: Acute (2) CHF (congestive heart failure) Status: Chronic - Assessment and Plan (Free Text) Plan: Prior NST w/ ischemic changes noted in LCX territory No plans for cardiac catheterization at this time; will continue w/ medical management only Patient is hypertensive on evaluation; Can consider adding ARB Started on Catapres 0.1 BID by primary team Holding Lasix for now given worsening Cr C/w Norvasc ASA Lipitor Coreg 12.5 Q12 Lasix 40 IVP Daily Hydralazine 50 TID Further reccs per Dr. Jamil <Austen Jamil - Last Filed: 04/21/18 19:25> Objective - Vital Signs/Intake and Output Vital Signs (last 24 hours): Temp Pulse Resp BP Pulse Ox 98.2 F 46 L 18 131/70 98 04/21/18 16:08 04/21/18 16:09 04/21/18 16:08 04/21/18 16:09 04/21/18 16:08 Intake and Output: 04/21/18 04/22/18 18:59 06:59 Intake Total 1450 Output Total 551 Balance 899 - Medications Medications: Current Medications Amlodipine Besylate (Norvasc) 10 mg PO DAILY [facility] Last Admin: 04/21/18 08:20 Dose: 10 mg Artificial Tears (Artificial Tears) 2 drop OU Q4 PRN PRN Reason: Dry eyes Last Admin: 04/21/18 11:39 Dose: 2 drop Ascorbic Acid (Vitamin C 500 Mg Tab) 500 mg PO DAILY [facility] Last Admin: 04/21/18 08:20 Dose: 500 mg Aspirin (Aspirin Chewable) 81 mg PO DAILY [facility] Last Admin: 04/21/18 08:20 Dose: 81 mg Atorvastatin Calcium (Lipitor) 20 mg PO DAILY [facility] Last Admin: 04/21/18 08:21 Dose: 20 mg Carvedilol (Coreg) 12.5 mg PO Q12 [facility] Last Admin: 04/21/18 08:22 Dose: Not Given Ergocalciferol (Drisdol 50,000 Intl Units Cap) 1 cap PO QWK@0900 [facility] Last Admin: 04/16/18 10:47 Dose: 1 cap Glipizide (Glucotrol Xl) 2.5 mg PO BID [facility] Last Admin: 04/21/18 16:10 Dose: 2.5 mg Hydralazine HCl (Apresoline) 100 mg PO TID [facility] Last Admin: 04/21/18 16:09 Dose: 100 mg Insulin Human Lispro (Humalog) 0 units SC Q6 [facility]; Protocol Last Admin: 04/21/18 16:10 Dose: 3 units Nitroglycerin (Nitro-Bid 2% Oint) 1 ea TOP Q6 [facility] Last Admin: 04/21/18 16:08 Dose: 1 ea - Labs Labs: 04/20/18 04:45 04/21/18 08:40 Attending/Attestation - Attestation I have personally seen and examined this patient.: Yes I have fully participated in the care of the patient.: Yes I have reviewed all pertinent clinical information, including history, physical exam and plan: Yes
--- NOTE | 2018-04-19 12:17 | CP.PCM.PN ---
Subjective - Date & Time of Evaluation Date of Evaluation: 04/19/18 Time of Evaluation: 12:12 - Subjective Subjective: Neuro Follow-Up Note: Mrs. Andrews was evaluated this afternoon at bedside. No family present at bedside during rounds. Pt is more drowsy compared to when I saw her yesterday, though she states that she feels "fine, just tired." Pt denies h/a, dizziness, visual changes, chest pain, palpitations, sob, cough, abd pain, n/v/d. Objective - Vital Signs/Intake and Output Vital Signs (last 24 hours): Temp Pulse Resp BP Pulse Ox 97.4 F L 67 20 161/70 H 97 04/19/18 08:13 04/19/18 10:00 04/19/18 08:13 04/19/18 10:00 04/19/18 08:13 - Medications Medications: Current Medications Alprazolam (Xanax) 0.5 mg PO HS PRN PRN Reason: Insomnia Amlodipine Besylate (Norvasc) 10 mg PO DAILY [facility] Last Admin: 04/19/18 09:56 Dose: 10 mg Artificial Tears (Artificial Tears) 2 drop OU Q4 PRN PRN Reason: Dry eyes Last Admin: 04/18/18 18:53 Dose: 2 drop Ascorbic Acid (Vitamin C 500 Mg Tab) 500 mg PO DAILY [facility] Last Admin: 04/19/18 09:57 Dose: 500 mg Aspirin (Aspirin Chewable) 81 mg PO DAILY [facility] Last Admin: 04/19/18 09:48 Dose: 81 mg Atorvastatin Calcium (Lipitor) 20 mg PO DAILY [facility] Last Admin: 04/19/18 09:56 Dose: 20 mg Carvedilol (Coreg) 12.5 mg PO Q12 [facility] Last Admin: 04/19/18 09:48 Dose: 12.5 mg Clonidine HCl (Catapres) 0.1 mg PO BID [facility] Ergocalciferol (Drisdol 50,000 Intl Units Cap) 1 cap PO QWK@0900 [facility] Last Admin: 04/16/18 10:47 Dose: 1 cap Glipizide (Glucotrol Xl) 2.5 mg PO BID [facility] Last Admin: 04/19/18 09:55 Dose: 2.5 mg Hydralazine HCl (Apresoline) 50 mg PO TID [facility] Last Admin: 04/19/18 09:47 Dose: 50 mg Insulin Human Lispro (Humalog) 0 units SC Q6 [facility]; Protocol Last Admin: 04/19/18 09:55 Dose: 1 units Nitroglycerin (Nitro-Bid 2% Oint) 1 ea TOP Q6 [facility] Last Admin: 04/19/18 10:00 Dose: 1 ea - Labs Labs: 04/18/18 11:41 04/18/18 11:26 - Constitutional Appears: No Acute Distress, Confused, Other (drowsy) - Head Exam Head Exam: ATRAUMATIC, NORMAL INSPECTION, NORMOCEPHALIC - Eye Exam Eye Exam: EOMI, Normal appearance. absent: Nystagmus Pupil Exam: NORMAL ACCOMODATION, PERRL - ENT Exam ENT Exam: Mucous Membranes Moist - Neck Exam Neck Exam: Normal Inspection - Respiratory Exam Respiratory Exam: NORMAL BREATHING PATTERN - GI/Abdominal Exam GI & Abdominal Exam: Soft - Extremities Exam Extremities Exam: absent: Calf Tenderness, Full ROM, Pedal Edema Additional comments: decreased ROM BLE 2/2 deconditioning and weakness - Neurological Exam Neurological Exam: Altered, Reflexes Normal. absent: Oriented x3 Neuro motor strength exam: Left Upper Extremity: 4 (crisis intervention counselor 4/5), Right Upper Extremity: 4 (crisis intervention counselor 4/5), Left Lower Extremity: 2/1 (plantar flexion 3/5), Right Lower Extremity: 2/1 (plantar flexion 3/5) Additional comments: Drowsy but easily arousable to voice. Forgetful, confused, cooperative Speech clear, fluid Generalized weakness 2/2 deconditioning worse to the BLE No sensory deficits noted. No tremors - Psychiatric Exam Additional comments: confused; drowsy today compared to yesterday - Skin Skin Exam: Normal Color Assessment and Plan (1) Toxic metabolic encephalopathy Assessment & Plan: Imaging reviewed: -CT Head (04/18/18): No acute hemorrhage. -ECHO: no LV throbmus; EF 55-60% Mrs. Andrews is an 87 y/o F initially admitted for CHF exacerbation and change in mental status (specifically she was drowsy at home; per daughter this has been going on for "a while" but worse recently). Pt does have baseline dementia. Upon discussion with her daughter yesterday it was made aware that she takes several medications which may make her drowsy, including Clonidine BID. She seemed to be improving yesterday when I saw her. Today, though, she is drowsy, able to answer some questions and follow simple commands. -MRI Brain ordered to r/o acute intracranial involvement as pt is not at her baseline today compared to yesterday. -If MRI unable to be done, may repeat non-contrast Head CT. -Continue current treatment -Treat underlying issues and worsening renal function. -Recommend to hold medications that may cause drowsiness or delirium, including benzos. -Continue PT as tolerated. -Notify neuro of acute changes in pt's condition. Discussed with Dr. Marcano Status: Acute
--- NOTE | 2018-04-19 14:30 | CP.PCM.PN ---
Subjective - Date & Time of Evaluation Date of Evaluation: 04/19/18 Time of Evaluation: 10:20 - Subjective Subjective: F/U Generalized weakness lethargic, arousable, able to talk few words, Objective - Vital Signs/Intake and Output Vital Signs (last 24 hours): Temp Pulse Resp BP Pulse Ox 98.3 F 66 20 153/53 H 97 04/19/18 12:36 04/19/18 12:36 04/19/18 12:36 04/19/18 12:36 04/19/18 12:36 - Medications Medications: Current Medications Alprazolam (Xanax) 0.5 mg PO HS PRN PRN Reason: Insomnia Amlodipine Besylate (Norvasc) 10 mg PO DAILY [facility] Last Admin: 04/19/18 09:56 Dose: 10 mg Artificial Tears (Artificial Tears) 2 drop OU Q4 PRN PRN Reason: Dry eyes Last Admin: 04/18/18 18:53 Dose: 2 drop Ascorbic Acid (Vitamin C 500 Mg Tab) 500 mg PO DAILY [facility] Last Admin: 04/19/18 09:57 Dose: 500 mg Aspirin (Aspirin Chewable) 81 mg PO DAILY [facility] Last Admin: 04/19/18 09:48 Dose: 81 mg Atorvastatin Calcium (Lipitor) 20 mg PO DAILY [facility] Last Admin: 04/19/18 09:56 Dose: 20 mg Carvedilol (Coreg) 12.5 mg PO Q12 [facility] Last Admin: 04/19/18 09:48 Dose: 12.5 mg Clonidine HCl (Catapres) 0.1 mg PO BID [facility] Ergocalciferol (Drisdol 50,000 Intl Units Cap) 1 cap PO QWK@0900 [facility] Last Admin: 04/16/18 10:47 Dose: 1 cap Glipizide (Glucotrol Xl) 2.5 mg PO BID [facility] Last Admin: 04/19/18 09:55 Dose: 2.5 mg Hydralazine HCl (Apresoline) 50 mg PO TID [facility] Last Admin: 04/19/18 09:47 Dose: 50 mg Insulin Human Lispro (Humalog) 0 units SC Q6 [facility]; Protocol Last Admin: 04/19/18 09:55 Dose: 1 units Nitroglycerin (Nitro-Bid 2% Oint) 1 ea TOP Q6 [facility] Last Admin: 04/19/18 10:00 Dose: 1 ea - Labs Labs: 04/18/18 11:41 04/18/18 11:26 - Constitutional Appears: Chronically Ill - Head Exam Head Exam: NORMAL INSPECTION - Eye Exam Eye Exam: PERRL - ENT Exam ENT Exam: Normal Exam - Neck Exam Neck Exam: Normal Inspection - Respiratory Exam Respiratory Exam: Decreased Breath Sounds (at bases) - Cardiovascular Exam Cardiovascular Exam: REGULAR RHYTHM, Murmur - GI/Abdominal Exam GI & Abdominal Exam: Soft, Normal Bowel Sounds - Extremities Exam Additional comments: 1+ non pitting edema BLE - Back Exam Back Exam: tenderness - Neurological Exam Neurological Exam: Alert Additional comments: lethargic, arousable, generalized weakness , no focal motor/sensory deficit. - Skin Skin Exam: Warm Assessment and Plan (1) Metabolic encephalopathy Status: Acute (2) Generalized weakness Status: Acute (3) CHF (congestive heart failure) Status: Chronic (4) Chronic kidney disease, stage IV (severe) Status: Chronic (5) Chronic anemia Status: Chronic (6) Diabetes mellitus Status: Chronic (7) Hyperglycemia Status: Acute (8) Osteoarthritis of both knees Status: Chronic (9) COPD (chronic obstructive pulmonary disease) Status: Chronic (10) Dementia Status: Chronic (11) Obesity, morbid Status: Chronic (12) High cholesterol Status: Chronic (13) Peripheral vascular disease of lower extremity Status: Chronic (14) Hx of deep venous thrombosis Status: Chronic - Assessment and Plan (Free Text) Plan: Patient with increase drowsiness when compared to yesterday, Renal function worsening, Hydration was started by Renal, CT Head no acute findings, Patient to have MRI of Brain today and EEG, Renal and neuro f/u appreciated
[2018-04-19] MEDS: Artificial Tears Opht Soln OU PRN (17:57)
[2018-04-19] MEDS: Sodium Chloride 0.9% 1,000 ML IV SCH (18:19)
[2018-04-20] MEDS: Nitroglycerin 2% Ointment Foilpak UD TOP SCH ×4 (04:52→21:02)
[2018-04-20] MEDS: Insulin Lispro (humaLOG) 100 Units/ml Inj SC SCH ×4 (05:03→22:31)
[2018-04-20] MEDS: Sodium Chloride 0.9% 1,000 ML IV SCH ×3 (05:03→18:28)
[2018-04-20 05:23] LABS: HEMOGLOBIN 10.4 g/dL (12.0-16.0); MEAN CELL VOLUME 88.6 fl (81.0-99.0); MEAN CORPUSCULAR HEMOGLOBIN 28.9 pg (27.0-31.0); MEAN CORPUSCULAR HGB CONC 32.6 g/dL (33.0-37.0); RBC 3.58 Mil/uL (3.80-5.20); RED CELL DISTRIBUTION WIDTH 14.9 % (11.5-14.5); WHITE BLOOD COUNT 8.1 K/uL (4.8-10.8)
[2018-04-20 07:00] LABS: ALBUMIN (PEP) 2.8 g/dL (3.8-4.8); ALPHA-1-GLOBULIN (PEP) 0.3 g/dL (0.2-0.3)
[2018-04-20] MEDS: GlipiZIDE 2.5 mg SR Tab PO SCH ×2 (08:36→21:02)
--- NOTE | 2018-04-20 09:01 | CP.PCM.PN ---
<Ancelmo Donato - Last Filed: 04/20/18 17:54> Subjective - Date & Time of Evaluation Date of Evaluation: 04/20/18 Time of Evaluation: 09:00 - Subjective Subjective: Ancelmo Donato DO PGY1 - Cardiology Note For Dr. Jamil Patient was seen and evaluated at bedside this morning. Undergoing EEG at time of evaluation. No complaints offered during evaluation. No complaints voiced by nursing regarding patient. Objective - Vital Signs/Intake and Output Vital Signs (last 24 hours): Temp Pulse Resp BP Pulse Ox 98.2 F 60 18 138/60 98 04/20/18 08:12 04/20/18 08:35 04/20/18 08:12 04/20/18 08:35 04/20/18 08:12 - Medications Medications: Current Medications Amlodipine Besylate (Norvasc) 10 mg PO DAILY [facility] Last Admin: 04/20/18 08:34 Dose: 10 mg Artificial Tears (Artificial Tears) 2 drop OU Q4 PRN PRN Reason: Dry eyes Last Admin: 04/19/18 17:57 Dose: 2 drop Ascorbic Acid (Vitamin C 500 Mg Tab) 500 mg PO DAILY [facility] Last Admin: 04/20/18 08:36 Dose: 500 mg Aspirin (Aspirin Chewable) 81 mg PO DAILY [facility] Last Admin: 04/20/18 08:36 Dose: 81 mg Atorvastatin Calcium (Lipitor) 20 mg PO DAILY [facility] Last Admin: 04/20/18 08:36 Dose: 20 mg Carvedilol (Coreg) 12.5 mg PO Q12 [facility] Last Admin: 04/20/18 08:35 Dose: 12.5 mg Clonidine HCl (Catapres) 0.1 mg PO BID [facility] Last Admin: 04/19/18 17:58 Dose: 0.1 mg Ergocalciferol (Drisdol 50,000 Intl Units Cap) 1 cap PO QWK@0900 [facility] Last Admin: 04/16/18 10:47 Dose: 1 cap Glipizide (Glucotrol Xl) 2.5 mg PO BID [facility] Last Admin: 04/20/18 08:36 Dose: 2.5 mg Hydralazine HCl (Apresoline) 50 mg PO TID [facility] Last Admin: 04/19/18 18:27 Dose: 50 mg Sodium Chloride (Sodium Chloride 0.9%) 1,000 mls @ 75 mls/hr IV .[id number] [facility] Stop: 04/20/18 15:19 Last Admin: 04/20/18 07:45 Dose: 75 mls/hr Insulin Human Lispro (Humalog) 0 units SC Q6 [facility]; Protocol Last Admin: 04/20/18 05:03 Dose: Not Given Nitroglycerin (Nitro-Bid 2% Oint) 1 ea TOP Q6 [facility] Last Admin: 04/20/18 04:52 Dose: 1 ea - Labs Labs: 04/20/18 04:45 04/18/18 11:26 - Constitutional Appears: Well, Non-toxic, No Acute Distress - Head Exam Head Exam: ATRAUMATIC, NORMOCEPHALIC - Eye Exam Eye Exam: EOMI, Normal appearance, PERRL - Respiratory Exam Respiratory Exam: Clear to Auscultation Bilateral, NORMAL BREATHING PATTERN - Cardiovascular Exam Cardiovascular Exam: +S1, +S2, Systolic Murmur (Aortic, LSB, and Mitral ) - GI/Abdominal Exam GI & Abdominal Exam: Soft. absent: Tenderness - Extremities Exam Additional comments: 2+ Pitting edema bilaterally - Neurological Exam Neurological exam: Alert, Oriented x3 - Psychiatric Exam Additional comments: Confused - Skin Skin Exam: Dry, Intact, Normal Color, Warm Assessment and Plan (1) Hypertensive urgency Status: Acute (2) CHF (congestive heart failure) Status: Acute - Assessment and Plan (Free Text) Plan: Prior LCX ischemia noted in LCX territory Cw medical management for now Cr elevated - started gentle IVF; Lasix held Will continue w/ IVF at this time 75cc/hr Repeat BMP Shows Cr. is improving however still elevated from baseline Will continue to hold Lasix C/w ASA Coreg Lipitor Hydralazine <Austen Jamil - Last Filed: 04/21/18 19:26> Objective - Vital Signs/Intake and Output Vital Signs (last 24 hours): Temp Pulse Resp BP Pulse Ox 98.2 F 46 L 18 131/70 98 04/21/18 16:08 04/21/18 16:09 04/21/18 16:08 04/21/18 16:09 04/21/18 16:08 Intake and Output: 04/21/18 04/22/18 18:59 06:59 Intake Total 1450 Output Total 551 Balance 899 - Medications Medications: Current Medications Amlodipine Besylate (Norvasc) 10 mg PO DAILY [facility] Last Admin: 04/21/18 08:20 Dose: 10 mg Artificial Tears (Artificial Tears) 2 drop OU Q4 PRN PRN Reason: Dry eyes Last Admin: 04/21/18 11:39 Dose: 2 drop Ascorbic Acid (Vitamin C 500 Mg Tab) 500 mg PO DAILY [facility] Last Admin: 04/21/18 08:20 Dose: 500 mg Aspirin (Aspirin Chewable) 81 mg PO DAILY [facility] Last Admin: 04/21/18 08:20 Dose: 81 mg Atorvastatin Calcium (Lipitor) 20 mg PO DAILY [facility] Last Admin: 04/21/18 08:21 Dose: 20 mg Carvedilol (Coreg) 12.5 mg PO Q12 [facility] Last Admin: 04/21/18 08:22 Dose: Not Given Ergocalciferol (Drisdol 50,000 Intl Units Cap) 1 cap PO QWK@0900 [facility] Last Admin: 04/16/18 10:47 Dose: 1 cap Glipizide (Glucotrol Xl) 2.5 mg PO BID [facility] Last Admin: 04/21/18 16:10 Dose: 2.5 mg Hydralazine HCl (Apresoline) 100 mg PO TID [facility] Last Admin: 04/21/18 16:09 Dose: 100 mg Insulin Human Lispro (Humalog) 0 units SC Q6 [facility]; Protocol Last Admin: 04/21/18 16:10 Dose: 3 units Nitroglycerin (Nitro-Bid 2% Oint) 1 ea TOP Q6 [facility] Last Admin: 04/21/18 16:08 Dose: 1 ea - Labs Labs: 04/20/18 04:45 04/21/18 08:40 Attending/Attestation - Attestation I have personally seen and examined this patient.: Yes I have fully participated in the care of the patient.: Yes I have reviewed all pertinent clinical information, including history, physical exam and plan: Yes
--- NOTE | 2018-04-20 09:53 | CP.PCM.PN ---
Subjective - Date & Time of Evaluation Date of Evaluation: 04/20/18 Time of Evaluation: 09:54 - Subjective Subjective: Awake and conscious Not in acute distress Appetite normal Objective - Vital Signs/Intake and Output Vital Signs (last 24 hours): Temp Pulse Resp BP Pulse Ox 98.2 F 62 18 121/75 98 04/20/18 08:12 04/20/18 09:26 04/20/18 08:12 04/20/18 09:26 04/20/18 08:12 - Medications Medications: Current Medications Amlodipine Besylate (Norvasc) 10 mg PO DAILY [facility] Last Admin: 04/20/18 08:34 Dose: 10 mg Artificial Tears (Artificial Tears) 2 drop OU Q4 PRN PRN Reason: Dry eyes Last Admin: 04/19/18 17:57 Dose: 2 drop Ascorbic Acid (Vitamin C 500 Mg Tab) 500 mg PO DAILY [facility] Last Admin: 04/20/18 08:36 Dose: 500 mg Aspirin (Aspirin Chewable) 81 mg PO DAILY [facility] Last Admin: 04/20/18 08:36 Dose: 81 mg Atorvastatin Calcium (Lipitor) 20 mg PO DAILY [facility] Last Admin: 04/20/18 08:36 Dose: 20 mg Carvedilol (Coreg) 12.5 mg PO Q12 [facility] Last Admin: 04/20/18 08:35 Dose: 12.5 mg Clonidine HCl (Catapres) 0.1 mg PO BID [facility] Last Admin: 04/19/18 17:58 Dose: 0.1 mg Ergocalciferol (Drisdol 50,000 Intl Units Cap) 1 cap PO QWK@0900 [facility] Last Admin: 04/16/18 10:47 Dose: 1 cap Glipizide (Glucotrol Xl) 2.5 mg PO BID [facility] Last Admin: 04/20/18 08:36 Dose: 2.5 mg Hydralazine HCl (Apresoline) 50 mg PO TID [facility] Last Admin: 04/20/18 09:25 Dose: 50 mg Insulin Human Lispro (Humalog) 0 units SC Q6 [facility]; Protocol Last Admin: 04/20/18 05:03 Dose: Not Given Nitroglycerin (Nitro-Bid 2% Oint) 1 ea TOP Q6 [facility] Last Admin: 04/20/18 09:26 Dose: 1 ea - Labs Labs: 04/20/18 04:45 04/18/18 11:26 - Constitutional Appears: No Acute Distress - Eye Exam Eye Exam: Conjunctival injection - ENT Exam ENT Exam: Mucous Membranes Moist - Neck Exam Neck Exam: absent: Lymphadenopathy - Respiratory Exam Respiratory Exam: NORMAL BREATHING PATTERN. absent: Rhonchi - Cardiovascular Exam Cardiovascular Exam: absent: Gallop, JVD, Rubs - GI/Abdominal Exam GI & Abdominal Exam: Soft, Normal Bowel Sounds - Extremities Exam Extremities Exam: absent: Calf Tenderness - Back Exam Back Exam: absent: CVA tenderness (L), CVA tenderness (R) - Neurological Exam Neurological Exam: Alert - Psychiatric Exam Psychiatric exam: Normal Affect - Skin Skin Exam: absent: Cyanosis Assessment and Plan (1) Chronic kidney disease, stage III (moderate) Assessment & Plan: CKD stage III Acute kidney injury superimposed on chronic kidney disease most likely related to hemodynamic changes from high blood pressure too low her volume status BMP still pending for this morning Hypertension Anemia hemoglobin stable around 10.4 Recommendation DC normal saline Follow-up BMP Serum PTH still pending Workup for immune electrophoresis pending Status: Acute (2) Generalized weakness Status: Acute (3) Dementia Status: Chronic
[2018-04-20 11:55] LABS: CALCIUM 8.6 mg/dL (8.4-10.2)
--- NOTE | 2018-04-20 12:23 | CP.PCM.PN ---
Subjective - Date & Time of Evaluation Date of Evaluation: 04/20/18 Time of Evaluation: 12:21 - Subjective Subjective: Neuro Follow-Up Note: Mrs. Andrews was evaluated this morning at bedside. No family present at bedside during rounds. Pt is still slightly drowsy. Pt denies any complaints. States that she didn't get much rest last night and is sleepy now. Pt denies h/a, dizziness, visual changes, chest pain, palpitations, sob, cough, abd pain, n/v/d. Objective - Vital Signs/Intake and Output Vital Signs (last 24 hours): Temp Pulse Resp BP Pulse Ox 98.2 F 48 L 18 102/61 96 04/20/18 12:15 04/20/18 12:18 04/20/18 12:15 04/20/18 12:18 04/20/18 12:15 - Medications Medications: Current Medications Amlodipine Besylate (Norvasc) 10 mg PO DAILY [facility] Last Admin: 04/20/18 08:34 Dose: 10 mg Artificial Tears (Artificial Tears) 2 drop OU Q4 PRN PRN Reason: Dry eyes Last Admin: 04/19/18 17:57 Dose: 2 drop Ascorbic Acid (Vitamin C 500 Mg Tab) 500 mg PO DAILY [facility] Last Admin: 04/20/18 08:36 Dose: 500 mg Aspirin (Aspirin Chewable) 81 mg PO DAILY [facility] Last Admin: 04/20/18 08:36 Dose: 81 mg Atorvastatin Calcium (Lipitor) 20 mg PO DAILY [facility] Last Admin: 04/20/18 08:36 Dose: 20 mg Carvedilol (Coreg) 12.5 mg PO Q12 [facility] Last Admin: 04/20/18 08:35 Dose: 12.5 mg Clonidine HCl (Catapres) 0.1 mg PO BID [facility] Last Admin: 04/20/18 11:51 Dose: Not Given Ergocalciferol (Drisdol 50,000 Intl Units Cap) 1 cap PO QWK@0900 [facility] Last Admin: 04/16/18 10:47 Dose: 1 cap Glipizide (Glucotrol Xl) 2.5 mg PO BID [facility] Last Admin: 04/20/18 08:36 Dose: 2.5 mg Hydralazine HCl (Apresoline) 50 mg PO TID [facility] Last Admin: 04/20/18 12:18 Dose: Not Given Insulin Human Lispro (Humalog) 0 units SC Q6 [facility]; Protocol Last Admin: 04/20/18 11:48 Dose: 3 units Nitroglycerin (Nitro-Bid 2% Oint) 1 ea TOP Q6 [facility] Last Admin: 04/20/18 09:26 Dose: 1 ea - Labs Labs: 04/20/18 04:45 04/20/18 11:32 - Constitutional Appears: Non-toxic, No Acute Distress, Confused - Head Exam Head Exam: ATRAUMATIC, NORMAL INSPECTION, NORMOCEPHALIC - Eye Exam Eye Exam: EOMI, Normal appearance Pupil Exam: NORMAL ACCOMODATION, PERRL - ENT Exam ENT Exam: Mucous Membranes Moist - Neck Exam Neck Exam: Full ROM, Normal Inspection - Respiratory Exam Respiratory Exam: NORMAL BREATHING PATTERN - Extremities Exam Extremities Exam: absent: Calf Tenderness, Pedal Edema Additional comments: decreased ROM to BLE 2/2 deconditioning - Neurological Exam Neurological Exam: Altered, Reflexes Normal Neuro motor strength exam: Left Upper Extremity: 4, Right Upper Extremity: 4, Left Lower Extremity: 3, Right Lower Extremity: 3 Additional comments: Drowsy but less than yesterday and is easily arousable to voice. She is confused but pleasant and cooperative Speech clear, fluid Generalized weakness 2/2 deconditioning more to the BLE No sensory deficits noted. No tremors Gait not assessed--PT notes reviewed - Psychiatric Exam Additional comments: drowsy; confused; pleasant and cooperative - Skin Skin Exam: Dry, Normal Color, Warm Assessment and Plan (1) Toxic metabolic encephalopathy Assessment & Plan: Imaging reviewed: -CT Head (04/18/18): No acute hemorrhage. -ECHO: no LV throbmus; EF 55-60% -MRI Brain ordered yesterday to r/o acute intracranial involvement as pt was drowsy--still pending; will f/u with results. -If MRI unable to be done, may repeat non-contrast Head CT. -EEG ordered and completed last night---results pending. -Continue current treatment -Treat underlying issues and worsening renal function--nephro on board. -Recommend to hold medications that may cause drowsiness or delirium, including benzos. Clonidine was restarted by nephro yesterday for BP control. -Continue PT as tolerated. -Notify neuro of acute changes in pt's condition. Discussed with Dr. Marcano Status: Acute
--- NOTE | 2018-04-20 13:03 | CP.PCM.PN ---
Subjective - Date & Time of Evaluation Date of Evaluation: 04/20/18 Time of Evaluation: 11:20 - Subjective Subjective: F/U Generalized weakness eyes open, more alert but still drowsy, answer questions, denies any specific complain Objective - Vital Signs/Intake and Output Vital Signs (last 24 hours): Temp Pulse Resp BP Pulse Ox 98.2 F 48 L 18 102/61 96 04/20/18 12:15 04/20/18 12:18 04/20/18 12:15 04/20/18 12:18 04/20/18 12:15 - Medications Medications: Current Medications Amlodipine Besylate (Norvasc) 10 mg PO DAILY [facility] Last Admin: 04/20/18 08:34 Dose: 10 mg Artificial Tears (Artificial Tears) 2 drop OU Q4 PRN PRN Reason: Dry eyes Last Admin: 04/19/18 17:57 Dose: 2 drop Ascorbic Acid (Vitamin C 500 Mg Tab) 500 mg PO DAILY [facility] Last Admin: 04/20/18 08:36 Dose: 500 mg Aspirin (Aspirin Chewable) 81 mg PO DAILY [facility] Last Admin: 04/20/18 08:36 Dose: 81 mg Atorvastatin Calcium (Lipitor) 20 mg PO DAILY [facility] Last Admin: 04/20/18 08:36 Dose: 20 mg Carvedilol (Coreg) 12.5 mg PO Q12 [facility] Last Admin: 04/20/18 08:35 Dose: 12.5 mg Clonidine HCl (Catapres) 0.1 mg PO BID [facility] Last Admin: 04/20/18 11:51 Dose: Not Given Ergocalciferol (Drisdol 50,000 Intl Units Cap) 1 cap PO QWK@0900 [facility] Last Admin: 04/16/18 10:47 Dose: 1 cap Glipizide (Glucotrol Xl) 2.5 mg PO BID [facility] Last Admin: 04/20/18 08:36 Dose: 2.5 mg Hydralazine HCl (Apresoline) 50 mg PO TID [facility] Last Admin: 04/20/18 12:18 Dose: Not Given Insulin Human Lispro (Humalog) 0 units SC Q6 [facility]; Protocol Last Admin: 04/20/18 11:48 Dose: 3 units Nitroglycerin (Nitro-Bid 2% Oint) 1 ea TOP Q6 [facility] Last Admin: 04/20/18 09:26 Dose: 1 ea - Labs Labs: 04/20/18 04:45 04/20/18 11:32 - Constitutional Appears: Chronically Ill - Head Exam Head Exam: NORMAL INSPECTION - Eye Exam Eye Exam: PERRL - ENT Exam ENT Exam: Normal Exam - Neck Exam Neck Exam: Normal Inspection - Respiratory Exam Respiratory Exam: Decreased Breath Sounds (at bases), Rhonchi - Cardiovascular Exam Cardiovascular Exam: REGULAR RHYTHM, Murmur - GI/Abdominal Exam GI & Abdominal Exam: Soft, Normal Bowel Sounds - Extremities Exam Extremities Exam: Normal Inspection - Back Exam Back Exam: tenderness - Neurological Exam Neurological Exam: Alert Additional comments: Ox2, awake,answer simple questions, generalized weakness, no focal motor/sensory deficit. - Skin Skin Exam: Warm Assessment and Plan (1) Metabolic encephalopathy Status: Acute (2) Generalized weakness Status: Acute (3) CHF (congestive heart failure) Status: Acute (4) Chronic kidney disease, stage IV (severe) Status: Chronic (5) Chronic anemia Status: Chronic (6) Diabetes mellitus Status: Chronic (7) Hyperglycemia Status: Acute (8) Osteoarthritis of both knees Status: Chronic (9) COPD (chronic obstructive pulmonary disease) Status: Chronic (10) Dementia Status: Chronic (11) Obesity, morbid Status: Chronic (12) High cholesterol Status: Chronic (13) Peripheral vascular disease of lower extremity Status: Chronic (14) Hx of deep venous thrombosis Status: Chronic - Assessment and Plan (Free Text) Plan: Renal function improved with IV fluids, BP controlled, f/u MRI Brain and EEG, BS controlled , continue BP meds and Insulin, PT, Patient's daughter does not want GLADIS
[2018-04-20] MEDS: Artificial Tears Opht Soln OU PRN (18:28)
[2018-04-21] MEDS: Insulin Lispro (humaLOG) 100 Units/ml Inj SC SCH ×4 (03:48→22:02)
[2018-04-21] MEDS: Nitroglycerin 2% Ointment Foilpak UD TOP SCH ×4 (03:49→21:12)
[2018-04-21] MEDS: GlipiZIDE 2.5 mg SR Tab PO SCH ×2 (08:20→16:10)
[2018-04-21] MEDS: Sodium Chloride 0.9% 1,000 ML IV SCH (08:21)
[2018-04-21 08:56] LABS: CALCIUM 8.6 mg/dL (8.4-10.2)
[2018-04-21] MEDS: Artificial Tears Opht Soln OU PRN (11:39)
--- NOTE | 2018-04-21 12:02 | CP.PCM.PN ---
Subjective - Date & Time of Evaluation Date of Evaluation: 04/21/18 Time of Evaluation: 12:00 - Subjective Subjective: Neuro Follow-Up Note: Mrs. Andrews was evaluated this morning at bedside. No family present at bedside during rounds. Pt is still slightly drowsy, same as yesterday. She is easily arousable to voice. Pt denies any complaints other than being sleepy. Pt denies h/a, dizziness, visual changes, chest pain, palpitations, sob, cough, abd pain, n/v/d. Objective - Vital Signs/Intake and Output Vital Signs (last 24 hours): Temp Pulse Resp BP Pulse Ox 98.0 F 57 L 20 171/71 H 97 04/21/18 08:13 04/21/18 11:38 04/21/18 08:13 04/21/18 11:38 04/21/18 08:13 - Medications Medications: Current Medications Amlodipine Besylate (Norvasc) 10 mg PO DAILY [facility] Last Admin: 04/21/18 08:20 Dose: 10 mg Artificial Tears (Artificial Tears) 2 drop OU Q4 PRN PRN Reason: Dry eyes Last Admin: 04/21/18 11:39 Dose: 2 drop Ascorbic Acid (Vitamin C 500 Mg Tab) 500 mg PO DAILY [facility] Last Admin: 04/21/18 08:20 Dose: 500 mg Aspirin (Aspirin Chewable) 81 mg PO DAILY [facility] Last Admin: 04/21/18 08:20 Dose: 81 mg Atorvastatin Calcium (Lipitor) 20 mg PO DAILY [facility] Last Admin: 04/21/18 08:21 Dose: 20 mg Carvedilol (Coreg) 12.5 mg PO Q12 [facility] Last Admin: 04/21/18 08:22 Dose: Not Given Clonidine HCl (Catapres) 0.1 mg PO BID [facility] Last Admin: 04/21/18 08:20 Dose: 0.1 mg Ergocalciferol (Drisdol 50,000 Intl Units Cap) 1 cap PO QWK@0900 [facility] Last Admin: 04/16/18 10:47 Dose: 1 cap Glipizide (Glucotrol Xl) 2.5 mg PO BID [facility] Last Admin: 04/21/18 08:20 Dose: 2.5 mg Hydralazine HCl (Apresoline) 50 mg PO TID [facility] Last Admin: 04/21/18 08:19 Dose: 50 mg Sodium Chloride (Sodium Chloride 0.9%) 1,000 mls @ 75 mls/hr IV .[id number] [facility] Stop: 04/21/18 17:54 Last Admin: 04/21/18 08:21 Dose: 75 mls/hr Insulin Human Lispro (Humalog) 0 units SC Q6 [facility]; Protocol Last Admin: 04/21/18 11:38 Dose: 4 units Nitroglycerin (Nitro-Bid 2% Oint) 1 ea TOP Q6 [facility] Last Admin: 04/21/18 11:38 Dose: 1 ea - Labs Labs: 04/20/18 04:45 04/21/18 08:40 - Constitutional Appears: Non-toxic, Confused, Other (drowsy but arousable to voice) - Head Exam Head Exam: ATRAUMATIC, NORMAL INSPECTION, NORMOCEPHALIC - Eye Exam Eye Exam: EOMI, Normal appearance, PERRL Pupil Exam: NORMAL ACCOMODATION, PERRL - ENT Exam ENT Exam: Mucous Membranes Moist - Neck Exam Neck Exam: Full ROM, Normal Inspection - Respiratory Exam Respiratory Exam: NORMAL BREATHING PATTERN - GI/Abdominal Exam GI & Abdominal Exam: Soft - Extremities Exam Extremities Exam: absent: Calf Tenderness, Pedal Edema Additional comments: Able to move all extremities; weakness noted to BLE more than BUE Deconditioning - Neurological Exam Neurological Exam: Altered, CN II-XII Intact, Reflexes Normal Neuro motor strength exam: Left Upper Extremity: 4, Right Upper Extremity: 4, Left Lower Extremity: 2/1 (plantar flexion 2-3/5), Right Lower Extremity: 2/1 (plantar flexion 2-3/5) Additional comments: Still drowsy but less than yesterday and is easily arousable to voice. She is confused but pleasant and cooperative Speech clear, fluid Generalized weakness 2/2 deconditioning more to the BLE No sensory deficits noted. No tremors Gait not assessed--PT notes reviewed - Psychiatric Exam Additional comments: drowsy but easily arousable to voice follows commands pleasant and cooperative - Skin Skin Exam: Normal Color Assessment and Plan (1) Toxic metabolic encephalopathy Assessment & Plan: Imaging reviewed: -CT Head (04/18/18): No acute hemorrhage. -ECHO: no LV throbmus; EF 55-60% -MRI Brain completed, results pending---will f/u with results. -EEG completed---results pending. -Continue current treatment -Treat underlying issues and worsening renal function--nephro on board. -Recommend to hold medications that may cause drowsiness or delirium, including benzos. Clonidine was restarted by nephro for BP control. -Continue PT as tolerated. -Notify neuro of acute changes in pt's condition. Discussed with Dr. Marcano Status: Acute
--- NOTE | 2018-04-21 14:07 | CP.PCM.PN ---
<Ancelmo Donato - Last Filed: 04/21/18 19:24> Subjective - Date & Time of Evaluation Date of Evaluation: 04/21/18 Time of Evaluation: 14:05 - Subjective Subjective: Cardiology note for Dr. Jamil Patient was seen and evaluated at bedside this afternoon. No complaints during evaluation. Objective - Vital Signs/Intake and Output Vital Signs (last 24 hours): Temp Pulse Resp BP Pulse Ox 97.7 F 45 L 20 120/77 98 04/21/18 12:26 04/21/18 12:26 04/21/18 12:26 04/21/18 12:26 04/21/18 12:26 - Medications Medications: Current Medications Amlodipine Besylate (Norvasc) 10 mg PO DAILY [facility] Last Admin: 04/21/18 08:20 Dose: 10 mg Artificial Tears (Artificial Tears) 2 drop OU Q4 PRN PRN Reason: Dry eyes Last Admin: 04/21/18 11:39 Dose: 2 drop Ascorbic Acid (Vitamin C 500 Mg Tab) 500 mg PO DAILY [facility] Last Admin: 04/21/18 08:20 Dose: 500 mg Aspirin (Aspirin Chewable) 81 mg PO DAILY [facility] Last Admin: 04/21/18 08:20 Dose: 81 mg Atorvastatin Calcium (Lipitor) 20 mg PO DAILY [facility] Last Admin: 04/21/18 08:21 Dose: 20 mg Carvedilol (Coreg) 12.5 mg PO Q12 [facility] Last Admin: 04/21/18 08:22 Dose: Not Given Clonidine HCl (Catapres) 0.1 mg PO BID [facility] Last Admin: 04/21/18 08:20 Dose: 0.1 mg Ergocalciferol (Drisdol 50,000 Intl Units Cap) 1 cap PO QWK@0900 [facility] Last Admin: 04/16/18 10:47 Dose: 1 cap Glipizide (Glucotrol Xl) 2.5 mg PO BID [facility] Last Admin: 04/21/18 08:20 Dose: 2.5 mg Hydralazine HCl (Apresoline) 50 mg PO TID [facility] Last Admin: 04/21/18 08:19 Dose: 50 mg Sodium Chloride (Sodium Chloride 0.9%) 1,000 mls @ 75 mls/hr IV .[id number] [facility] Stop: 04/21/18 17:54 Last Admin: 04/21/18 08:21 Dose: 75 mls/hr Insulin Human Lispro (Humalog) 0 units SC Q6 [facility]; Protocol Last Admin: 04/21/18 11:38 Dose: 4 units Nitroglycerin (Nitro-Bid 2% Oint) 1 ea TOP Q6 [facility] Last Admin: 04/21/18 11:38 Dose: 1 ea - Labs Labs: 04/20/18 04:45 04/21/18 08:40 - Constitutional Appears: Well, Non-toxic, No Acute Distress - Head Exam Head Exam: ATRAUMATIC, NORMOCEPHALIC - Eye Exam Eye Exam: EOMI, Normal appearance, PERRL - Respiratory Exam Respiratory Exam: Clear to Auscultation Bilateral, NORMAL BREATHING PATTERN - Cardiovascular Exam Cardiovascular Exam: +S1, +S2, Systolic Murmur (Aortic, LSB, and Mitral ) - GI/Abdominal Exam GI & Abdominal Exam: Soft. absent: Tenderness - Extremities Exam Additional comments: 2+ Pitting edema bilaterally - Neurological Exam Neurological exam: Alert, Oriented x3 - Psychiatric Exam Additional comments: Confused - Skin Skin Exam: Dry, Intact, Normal Color, Warm Assessment and Plan (1) Hypertensive urgency Status: Acute (2) CHF (congestive heart failure) Status: Acute - Assessment and Plan (Free Text) Plan: Prior LCX ischemia noted in LCX territory Cw medical management for now Asymptomatic on examination; Stop clonidine given bradycardia increase hydralazine continue Norvasc continue aspirin continue Lipitor continue coreg continue with IV fluids given increasing creatinine from baseline. <Austen Jamil - Last Filed: 04/21/18 19:30> Objective - Vital Signs/Intake and Output Vital Signs (last 24 hours): Temp Pulse Resp BP Pulse Ox 98.2 F 46 L 18 131/70 98 04/21/18 16:08 04/21/18 16:09 04/21/18 16:08 04/21/18 16:09 04/21/18 16:08 Intake and Output: 04/21/18 04/22/18 18:59 06:59 Intake Total 1450 Output Total 551 Balance 899 - Medications Medications: Current Medications Amlodipine Besylate (Norvasc) 10 mg PO DAILY [facility] Last Admin: 04/21/18 08:20 Dose: 10 mg Artificial Tears (Artificial Tears) 2 drop OU Q4 PRN PRN Reason: Dry eyes Last Admin: 04/21/18 11:39 Dose: 2 drop Ascorbic Acid (Vitamin C 500 Mg Tab) 500 mg PO DAILY [facility] Last Admin: 04/21/18 08:20 Dose: 500 mg Aspirin (Aspirin Chewable) 81 mg PO DAILY [facility] Last Admin: 04/21/18 08:20 Dose: 81 mg Atorvastatin Calcium (Lipitor) 20 mg PO DAILY [facility] Last Admin: 04/21/18 08:21 Dose: 20 mg Carvedilol (Coreg) 12.5 mg PO Q12 [facility] Last Admin: 04/21/18 08:22 Dose: Not Given Ergocalciferol (Drisdol 50,000 Intl Units Cap) 1 cap PO QWK@0900 [facility] Last Admin: 04/16/18 10:47 Dose: 1 cap Glipizide (Glucotrol Xl) 2.5 mg PO BID [facility] Last Admin: 04/21/18 16:10 Dose: 2.5 mg Hydralazine HCl (Apresoline) 100 mg PO TID [facility] Last Admin: 04/21/18 16:09 Dose: 100 mg Insulin Human Lispro (Humalog) 0 units SC Q6 [facility]; Protocol Last Admin: 04/21/18 16:10 Dose: 3 units Nitroglycerin (Nitro-Bid 2% Oint) 1 ea TOP Q6 [facility] Last Admin: 04/21/18 16:08 Dose: 1 ea - Labs Labs: 04/20/18 04:45 04/21/18 08:40 Attending/Attestation - Attestation I have personally seen and examined this patient.: Yes I have fully participated in the care of the patient.: Yes I have reviewed all pertinent clinical information, including history, physical exam and plan: Yes
--- NOTE | 2018-04-21 15:33 | MRI ---
Date of service: 04/20/2018 PROCEDURE: MRI BRAIN WITHOUT CONTRAST HISTORY: AMS, drowsy; r/o acute infarct COMPARISON: Noncontrast head CT from 04/18/2018. TECHNIQUE: Multiplanar, multisequence MR images of the brain were obtained without intravenous contrast enhancement. FINDINGS: HEMORRHAGE: None DWI: No evidence of an acute or early subacute infarction. BRAIN PARENCHYMA: There are moderate chronic microangiopathic changes. There is no mass, mass effect or abnormal extra-axial fluid collection. There is no territorial infarction. The midline sagittal structures are normal. VENTRICLES: There is moderate age-related global parenchymal volume loss and proportionate enlargement of the ventricles and cortical sulci. CRANIUM: There is normal bone marrow signal pattern. ORBITS: Grossly unremarkable. PARANASAL SINUSES/MASTOIDS: The paranasal sinuses are clear. There are small mastoid effusions with VASCULAR SYSTEM: There are normal signal voids in the larger intracranial arteries. OTHER FINDINGS: None. IMPRESSION: No acute intracranial abnormality. Moderate chronic microangiopathic changes and moderate age-related global parenchymal volume loss.
--- NOTE | 2018-04-21 17:54 | CP.PCM.PN ---
Subjective - Date & Time of Evaluation Date of Evaluation: 04/21/18 - Subjective Subjective: F/U generalized weakness. awake , alert, complains of generalized weakness Objective - Vital Signs/Intake and Output Vital Signs (last 24 hours): Temp Pulse Resp BP Pulse Ox 98.2 F 46 L 18 131/70 98 04/21/18 16:08 04/21/18 16:09 04/21/18 16:08 04/21/18 16:09 04/21/18 16:08 Intake and Output: 04/21/18 04/21/18 06:59 18:59 Intake Total 1450 Output Total 551 Balance 899 - Medications Medications: Current Medications Amlodipine Besylate (Norvasc) 10 mg PO DAILY [facility] Last Admin: 04/21/18 08:20 Dose: 10 mg Artificial Tears (Artificial Tears) 2 drop OU Q4 PRN PRN Reason: Dry eyes Last Admin: 04/21/18 11:39 Dose: 2 drop Ascorbic Acid (Vitamin C 500 Mg Tab) 500 mg PO DAILY [facility] Last Admin: 04/21/18 08:20 Dose: 500 mg Aspirin (Aspirin Chewable) 81 mg PO DAILY [facility] Last Admin: 04/21/18 08:20 Dose: 81 mg Atorvastatin Calcium (Lipitor) 20 mg PO DAILY [facility] Last Admin: 04/21/18 08:21 Dose: 20 mg Carvedilol (Coreg) 12.5 mg PO Q12 [facility] Last Admin: 04/21/18 08:22 Dose: Not Given Ergocalciferol (Drisdol 50,000 Intl Units Cap) 1 cap PO QWK@0900 [facility] Last Admin: 04/16/18 10:47 Dose: 1 cap Glipizide (Glucotrol Xl) 2.5 mg PO BID [facility] Last Admin: 04/21/18 16:10 Dose: 2.5 mg Hydralazine HCl (Apresoline) 100 mg PO TID [facility] Last Admin: 04/21/18 16:09 Dose: 100 mg Sodium Chloride (Sodium Chloride 0.9%) 1,000 mls @ 75 mls/hr IV .[id number] [facility] Stop: 04/21/18 17:54 Last Admin: 04/21/18 08:21 Dose: 75 mls/hr Insulin Human Lispro (Humalog) 0 units SC Q6 [facility]; Protocol Last Admin: 04/21/18 16:10 Dose: 3 units Nitroglycerin (Nitro-Bid 2% Oint) 1 ea TOP Q6 [facility] Last Admin: 04/21/18 16:08 Dose: 1 ea - Labs Labs: 04/20/18 04:45 04/21/18 08:40 - Constitutional Appears: Chronically Ill - Head Exam Head Exam: NORMAL INSPECTION - Eye Exam Eye Exam: PERRL - ENT Exam ENT Exam: Normal Exam - Neck Exam Neck Exam: Normal Inspection - Respiratory Exam Respiratory Exam: Decreased Breath Sounds (at bases), Rhonchi - Cardiovascular Exam Cardiovascular Exam: REGULAR RHYTHM, Murmur - GI/Abdominal Exam GI & Abdominal Exam: Soft, Normal Bowel Sounds - Extremities Exam Extremities Exam: Normal Inspection - Back Exam Back Exam: tenderness - Neurological Exam Neurological Exam: Alert, Awake Additional comments: Arousable, generalized weakness. - Skin Skin Exam: Warm Assessment and Plan (1) Metabolic encephalopathy Status: Acute (2) Generalized weakness Status: Acute (3) CHF (congestive heart failure) Status: Acute (4) Chronic kidney disease, stage IV (severe) Status: Chronic (5) Chronic anemia Status: Chronic (6) Diabetes mellitus Status: Chronic (7) Hyperglycemia Status: Acute (8) Osteoarthritis of both knees Status: Chronic (9) COPD (chronic obstructive pulmonary disease) Status: Chronic (10) Dementia Status: Chronic (11) Obesity, morbid Status: Chronic (12) High cholesterol Status: Chronic (13) Peripheral vascular disease of lower extremity Status: Chronic (14) Hx of deep venous thrombosis Status: Chronic - Assessment and Plan (Free Text) Plan: continue Hydralazine, Coreg, NitroBid, Norvasc, [place] ,Lambda light chane elevated, f/u Hamatology consult
--- NOTE | 2018-04-21 19:08 | CARD ---
APPROVED REPORT Date of service: 04/21/2018 EKG Measurement Heart [id number] <Conclusion> Sinus bradycardia Septal infarct, age undetermined Abnormal ECG
[2018-04-22 00:29] VITALS: RESP 18
[2018-04-22] MEDS: Nitroglycerin 2% Ointment Foilpak UD TOP SCH ×2 (04:50→10:00)
[2018-04-22 05:20] LABS: HEMOGLOBIN 10.4 g/dL (12.0-16.0); MEAN CELL VOLUME 86.9 fl (81.0-99.0); MEAN CORPUSCULAR HEMOGLOBIN 28.4 pg (27.0-31.0); MEAN CORPUSCULAR HGB CONC 32.7 g/dL (33.0-37.0); RBC 3.66 Mil/uL (3.80-5.20); RED CELL DISTRIBUTION WIDTH 15.5 % (11.5-14.5); WHITE BLOOD COUNT 7.9 K/uL (4.8-10.8)
[2018-04-22] MEDS: Insulin Lispro (humaLOG) 100 Units/ml Inj SC SCH ×2 (05:30→12:11)
[2018-04-22 05:32] LABS: ALB/GLOB RATIO 1.2 (1.0-2.1); ALBUMIN 3.5 g/dL (3.5-5.0)
[2018-04-22] MEDS: GlipiZIDE 2.5 mg SR Tab PO SCH (08:51)
--- NOTE | 2018-04-22 10:24 | CP.PCM.PN ---
Subjective - Date & Time of Evaluation Date of Evaluation: 04/22/18 Time of Evaluation: 10:24 - Subjective Subjective: Neuro Follow-Up Note: Mrs. Andrews was evaluated this morning at bedside. No family present at bedside during rounds. Pt is awake and alert today and has no complaints. She is still confused but has baseline dementia. Pt denies h/a, dizziness, visual changes, chest pain, palpitations, sob, cough, abd pain, n/v/d. Objective - Vital Signs/Intake and Output Vital Signs (last 24 hours): Temp Pulse Resp BP Pulse Ox 97.5 F L 97 H 18 172/65 H 97 04/22/18 08:27 04/22/18 08:50 04/22/18 08:27 04/22/18 08:50 04/22/18 08:27 - Medications Medications: Current Medications Amlodipine Besylate (Norvasc) 10 mg PO DAILY [facility] Last Admin: 04/22/18 08:50 Dose: 10 mg Artificial Tears (Artificial Tears) 2 drop OU Q4 PRN PRN Reason: Dry eyes Last Admin: 04/21/18 11:39 Dose: 2 drop Ascorbic Acid (Vitamin C 500 Mg Tab) 500 mg PO DAILY [facility] Last Admin: 04/22/18 08:47 Dose: 500 mg Aspirin (Aspirin Chewable) 81 mg PO DAILY [facility] Last Admin: 04/22/18 08:47 Dose: 81 mg Atorvastatin Calcium (Lipitor) 20 mg PO DAILY [facility] Last Admin: 04/22/18 08:47 Dose: 20 mg Carvedilol (Coreg) 12.5 mg PO Q12 [facility] Last Admin: 04/21/18 08:22 Dose: Not Given Ergocalciferol (Drisdol 50,000 Intl Units Cap) 1 cap PO QWK@0900 [facility] Last Admin: 04/16/18 10:47 Dose: 1 cap Glipizide (Glucotrol Xl) 2.5 mg PO BID [facility] Last Admin: 04/22/18 08:51 Dose: 2.5 mg Hydralazine HCl (Apresoline) 100 mg PO TID [facility] Last Admin: 04/22/18 08:48 Dose: Not Given Insulin Human Lispro (Humalog) 0 units SC Q6 [facility]; Protocol Last Admin: 04/22/18 05:30 Dose: Not Given Nitroglycerin (Nitro-Bid 2% Oint) 1 ea TOP Q6 [facility] Last Admin: 04/22/18 04:50 Dose: 1 ea - Labs Labs: 04/22/18 04:40 04/22/18 04:40 - Constitutional Appears: Well, Non-toxic, No Acute Distress - Head Exam Head Exam: ATRAUMATIC, NORMAL INSPECTION, NORMOCEPHALIC - Eye Exam Eye Exam: EOMI, Normal appearance. absent: Nystagmus Pupil Exam: NORMAL ACCOMODATION, PERRL - ENT Exam ENT Exam: Mucous Membranes Moist - Neck Exam Neck Exam: Full ROM, Normal Inspection - Respiratory Exam Respiratory Exam: NORMAL BREATHING PATTERN - GI/Abdominal Exam GI & Abdominal Exam: Soft - Extremities Exam Extremities Exam: absent: Calf Tenderness, Pedal Edema Additional comments: Able to move all extremities; weakness noted to BLE more than BUE Deconditioning - Neurological Exam Neurological Exam: Alert, Altered, Awake, CN II-XII Intact. absent: Oriented x3 Neuro motor strength exam: Left Upper Extremity: 4, Right Upper Extremity: 4, Left Lower Extremity: 3, Right Lower Extremity: 3 Additional comments: Awake and more alert compared to the last few days. She is confused but pleasant and cooperative; baseline dementia Speech clear, fluid Generalized weakness 2/2 deconditioning more to the BLE No sensory deficits noted. No tremors Gait not assessed--PT notes reviewed - Psychiatric Exam Additional comments: More awake and alert today; still confused; baseline dementia follows commands pleasant and cooperative - Skin Skin Exam: Normal Color Assessment and Plan (1) Toxic metabolic encephalopathy Assessment & Plan: Imaging reviewed: -MRI Brain (04/20/18): No acute intracranial abnormality. Moderate chronic microangiopathic changes and moderate age-related global parenchymal volume loss. -CT Head (04/18/18): No acute hemorrhage. -ECHO: no LV throbmus; EF 55-60% -EEG: normal per Dr. Marcano -Continue current treatment, including worsening renal function--nephro on boar d. -Recommend to hold medications that may cause drowsiness or delirium, including benzos. Clonidine was restarted by nephro for BP control. -Continue ASA and statin. -Continue PT as tolerated. -Notify neuro of acute changes in pt's condition. No further neuro recommendations. Reconsult prn. Thank you for allowing us to participate in this pt's care. Discussed with Dr. Marcano Status: Acute
--- NOTE | 2018-04-22 11:33 | CP.PCM.PN ---
Subjective - Subjective Subjective: alert, smiling, complains of generalized weakness Objective - Vital Signs/Intake and Output Vital Signs (last 24 hours): Temp Pulse Resp BP Pulse Ox 97.5 F L 97 H 18 172/65 H 97 04/22/18 08:27 04/22/18 08:50 04/22/18 08:27 04/22/18 08:50 04/22/18 08:27 - Medications Medications: Current Medications Amlodipine Besylate (Norvasc) 10 mg PO DAILY [facility] Last Admin: 04/22/18 08:50 Dose: 10 mg Artificial Tears (Artificial Tears) 2 drop OU Q4 PRN PRN Reason: Dry eyes Last Admin: 04/21/18 11:39 Dose: 2 drop Ascorbic Acid (Vitamin C 500 Mg Tab) 500 mg PO DAILY [facility] Last Admin: 04/22/18 08:47 Dose: 500 mg Aspirin (Aspirin Chewable) 81 mg PO DAILY [facility] Last Admin: 04/22/18 08:47 Dose: 81 mg Atorvastatin Calcium (Lipitor) 20 mg PO DAILY [facility] Last Admin: 04/22/18 08:47 Dose: 20 mg Carvedilol (Coreg) 12.5 mg PO Q12 [facility] Last Admin: 04/21/18 08:22 Dose: Not Given Ergocalciferol (Drisdol 50,000 Intl Units Cap) 1 cap PO QWK@0900 [facility] Last Admin: 04/16/18 10:47 Dose: 1 cap Glipizide (Glucotrol Xl) 2.5 mg PO BID [facility] Last Admin: 04/22/18 08:51 Dose: 2.5 mg Hydralazine HCl (Apresoline) 100 mg PO TID [facility] Last Admin: 04/22/18 08:48 Dose: Not Given Insulin Human Lispro (Humalog) 0 units SC Q6 [facility]; Protocol Last Admin: 04/22/18 05:30 Dose: Not Given Nitroglycerin (Nitro-Bid 2% Oint) 1 ea TOP Q6 [facility] Last Admin: 04/22/18 04:50 Dose: 1 ea - Labs Labs: 04/22/18 04:40 04/22/18 04:40 - Constitutional Appears: No Acute Distress - Head Exam Head Exam: NORMAL INSPECTION - Eye Exam Eye Exam: PERRL - Neck Exam Neck Exam: Normal Inspection - Respiratory Exam Respiratory Exam: Decreased Breath Sounds (at bases) - Cardiovascular Exam Cardiovascular Exam: REGULAR RHYTHM - GI/Abdominal Exam GI & Abdominal Exam: Soft, Normal Bowel Sounds - Extremities Exam Additional comments: chronic distal legs skin changes - Neurological Exam Additional comments: alert, O x 2, no focal motor/sensory deficit, generalized weakness Assessment and Plan (1) Metabolic encephalopathy Status: Acute (2) Generalized weakness Status: Acute (3) CHF (congestive heart failure) Status: Acute (4) Chronic kidney disease, stage IV (severe) Status: Chronic (5) Chronic anemia Status: Chronic (6) Diabetes mellitus Status: Chronic (7) Hyperglycemia Status: Acute (8) Osteoarthritis of both knees Status: Chronic (9) COPD (chronic obstructive pulmonary disease) Status: Chronic (10) Dementia Status: Chronic (11) Obesity, morbid Status: Chronic (12) High cholesterol Status: Chronic (13) Peripheral vascular disease of lower extremity Status: Chronic (14) Hx of deep venous thrombosis Status: Chronic - Assessment and Plan (Free Text) Plan: continue current Tx , f/u Hematology consult
--- NOTE | 2018-04-22 11:48 | CP.PCM.CON ---
History of Present Illness - History of Present Illness History of Present Illness: 87 year old female with a history of CHF, HTN, DM, HL, DVT, CVA, CKD, demeentia, admitted with weakness, found to have positive serum immunofixation. The patient is confused and I am unable to obtain a history from the patient. Fred mallory of her blood work shows a mildly positive serum immunofixation but undetectable M-spike on SPEP and normal free light chain ratio. Past medical, surgical, family, social history cannot be obtained from the patient. Allergies: NKA Review of systems cannot be obtained. Past Patient History - Infectious Disease Hx of Infectious Diseases: None - Past Medical History & Family History Past Medical History?: Yes - Past Social History Smoking Status: Never Smoked Alcohol: None Drugs: Denies Home Situation {Lives}: With Family - CARDIAC Hx Cardiac Disorders: Yes Hx Congestive Heart Failure: Yes Hx Hypercholesterolemia: Yes Hx Hypertension: Yes - PULMONARY Hx Respiratory Disorders: Yes Hx Asthma: Yes Hx Chronic Obstructive Pulmonary Disease (COPD): Yes Hx Pneumonia: Yes - NEUROLOGICAL Hx Neurological Disorder: Yes Hx Transient Ischemic Attacks (TIA): Yes - HEENT Hx HEENT Problems: Yes Hx Cataracts: Yes - RENAL Hx Chronic Kidney Disease: Yes (stage III) - ENDOCRINE/METABOLIC Hx Endocrine Disorders: Yes Hx Diabetes Mellitus Type 2: Yes Hx Hypothyroidism: No - HEMATOLOGICAL/ONCOLOGICAL Hx Blood Disorders: Yes Hx Anemia: Yes - INTEGUMENTARY Hx Dermatological Problems: No - MUSCULOSKELETAL/RHEUMATOLOGICAL Hx Musculoskeletal Disorders: Yes Hx Arthritis: Yes Hx Back Pain: Yes Hx Falls: No Hx Osteoporosis: Yes Hx Rheumatoid Arthritis: No - GASTROINTESTINAL Hx Gastrointestinal Disorders: No - GENITOURINARY/GYNECOLOGICAL Hx Genitourinary Disorders: Yes Hx Incontinence: Yes - PSYCHIATRIC Hx Psychophysiologic Disorder: Yes Hx Anxiety: Yes Hx Depression: Yes Hx Substance Use: No - SURGICAL HISTORY Hx Surgeries: Yes Hx Appendectomy: Yes Hx Cholecystectomy: Yes - ANESTHESIA Hx Anesthesia: Yes Hx Anesthesia Reactions: No Hx Malignant Hyperthermia: No Meds Home Medications: Home Medication List Medication Instructions Recorded Confirmed Type Ascorbic Acid [Vitamin C 500 mg 500 mg PO DAILY #30 tab 04/22/18 Rx Tab] Carvedilol [Coreg] 6.25 mg PO BID #0 04/22/18 04/15/18 Rx Ergocalciferol [Drisdol 50,000 1 cap PO QWK@0900 #4 cap 04/22/18 Rx Intl Units Cap] Nitroglycerin 2% [Nitro-Bid 2% 1 ea TOP Q6 #1 fp 04/22/18 Rx Oint] Polyethylene Glycol/Polyvinyl 2 drop OU Q4 PRN #1 bottle 04/22/18 Rx [Artificial Tears] amLODIPine [Norvasc] 10 mg PO DAILY #30 tab 04/22/18 Rx hydrALAZINE [Apresoline] 100 mg PO TID #60 tab 04/22/18 Rx Allergies/Adverse Reactions: Allergies Allergy/AdvReac Type Severity Reaction Status Date / Time No Known Allergies Allergy Verified 04/15/18 13:43 - Medications Medications: Current Medications Amlodipine Besylate (Norvasc) 10 mg PO DAILY [facility] Last Admin: 04/22/18 08:50 Dose: 10 mg Artificial Tears (Artificial Tears) 2 drop OU Q4 PRN PRN Reason: Dry eyes Last Admin: 04/21/18 11:39 Dose: 2 drop Ascorbic Acid (Vitamin C 500 Mg Tab) 500 mg PO DAILY [facility] Last Admin: 04/22/18 08:47 Dose: 500 mg Aspirin (Aspirin Chewable) 81 mg PO DAILY [facility] Last Admin: 04/22/18 08:47 Dose: 81 mg Atorvastatin Calcium (Lipitor) 20 mg PO DAILY [facility] Last Admin: 04/22/18 08:47 Dose: 20 mg Carvedilol (Coreg) 12.5 mg PO Q12 [facility] Last Admin: 04/21/18 08:22 Dose: Not Given Ergocalciferol (Drisdol 50,000 Intl Units Cap) 1 cap PO QWK@0900 [facility] Last Admin: 04/16/18 10:47 Dose: 1 cap Glipizide (Glucotrol Xl) 2.5 mg PO BID [facility] Last Admin: 04/22/18 08:51 Dose: 2.5 mg Hydralazine HCl (Apresoline) 100 mg PO TID [facility] Last Admin: 04/22/18 08:48 Dose: Not Given Insulin Human Lispro (Humalog) 0 units SC Q6 [facility]; Protocol Last Admin: 04/22/18 05:30 Dose: Not Given Nitroglycerin (Nitro-Bid 2% Oint) 1 ea TOP Q6 [facility] Last Admin: 04/22/18 04:50 Dose: 1 ea Physical Exam - Head Exam Head Exam: ATRAUMATIC - Eye Exam Eye Exam: Normal appearance - ENT Exam ENT Exam: Mucous Membranes Dry - Respiratory Exam Respiratory Exam: NORMAL BREATHING PATTERN - Cardiovascular Exam Cardiovascular Exam: +S1, +S2 - GI/Abdominal Exam GI & Abdominal Exam: Normal Bowel Sounds - Neurological Exam Neurological exam: Altered - Psychiatric Exam Psychiatric exam: Flat Affect - Skin Skin Exam: Warm Results - Vital Signs Recent Vital Signs: Last Vital Signs Temp 97.5 F L 04/22/18 08:27 Pulse 97 H 04/22/18 08:50 Resp 18 04/22/18 08:27 BP 172/65 H 04/22/18 08:50 Pulse Ox 97 04/22/18 08:27 - Labs Result Diagrams: 04/22/18 04:40 04/22/18 04:40 Labs: Laboratory Results - last 24 hr 04/21/18 04/22/18 04/22/18 15:47 04:40 04:40 WBC 7.9 RBC 3.66 L Hgb 10.4 L Hct 31.8 L MCV 86.9 MCH 28.4 MCHC 32.7 L RDW 15.5 H Plt Count 243 Retic Count Sodium 139 Potassium 4.5 Chloride 105 Carbon Dioxide 21 L Anion Gap 18 BUN 71 H Creatinine 3.8 H Est GFR ( Amer) 14 Est GFR (Non-Af Amer) 11 POC Glucose (mg/dL) 235 H Random Glucose 92 Calcium 9.0 Phosphorus 5.6 H Magnesium 2.2 Total Bilirubin 0.4 AST 25 ALT 27 Alkaline Phosphatase 87 Total Protein 6.4 Albumin 3.5 Globulin 2.9 Albumin/Globulin Ratio 1.2 04/22/18 04/22/18 04/22/18 04:40 05:41 11:05 WBC RBC Hgb Hct MCV MCH MCHC RDW Plt Count Retic Count 1.5 Sodium Potassium Chloride Carbon Dioxide Anion Gap BUN Creatinine Est GFR ( Amer) Est GFR (Non-Af Amer) POC Glucose (mg/dL) 87 253 H Random Glucose Calcium Phosphorus Magnesium Total Bilirubin AST ALT Alkaline Phosphatase Total Protein Albumin Globulin Albumin/Globulin Ratio Assessment & Plan (1) Monoclonal gammopathy Assessment and Plan: positive immunofixation but negative SPEP and free light chain assay unlikely cause of elevated renal function outpatient f/u Status: Acute (2) Anemia Assessment and Plan: retic count, b12, folate, ferritin likely anemia of CKD and chronic disease Thank you for this interesting consult. Status: Acute
[2018-04-22 12:27] VITALS: TEMP 97.6
[2018-04-22 13:27] LABS: FOLATE 14.1 ng/mL
--- NOTE | 2018-04-22 14:07 | CP.PCM.PN ---
Subjective - Date & Time of Evaluation Date of Evaluation: 04/22/18 Time of Evaluation: 14:05 - Subjective Subjective: Patient awake and conscious she appears to be comfortable clinically Vital signs noted with the blood pressure still elevated Objective - Vital Signs/Intake and Output Vital Signs (last 24 hours): Temp Pulse Resp BP Pulse Ox 97.6 F 61 18 170/73 H 97 04/22/18 12:26 04/22/18 12:26 04/22/18 12:26 04/22/18 12:26 04/22/18 12:26 - Medications Medications: Current Medications Amlodipine Besylate (Norvasc) 10 mg PO DAILY [facility] Last Admin: 04/22/18 08:50 Dose: 10 mg Artificial Tears (Artificial Tears) 2 drop OU Q4 PRN PRN Reason: Dry eyes Last Admin: 04/21/18 11:39 Dose: 2 drop Ascorbic Acid (Vitamin C 500 Mg Tab) 500 mg PO DAILY [facility] Last Admin: 04/22/18 08:47 Dose: 500 mg Aspirin (Aspirin Chewable) 81 mg PO DAILY [facility] Last Admin: 04/22/18 08:47 Dose: 81 mg Atorvastatin Calcium (Lipitor) 20 mg PO DAILY [facility] Last Admin: 04/22/18 08:47 Dose: 20 mg Carvedilol (Coreg) 12.5 mg PO Q12 [facility] Last Admin: 04/21/18 08:22 Dose: Not Given Ergocalciferol (Drisdol 50,000 Intl Units Cap) 1 cap PO QWK@0900 [facility] Last Admin: 04/16/18 10:47 Dose: 1 cap Glipizide (Glucotrol Xl) 2.5 mg PO BID [facility] Last Admin: 04/22/18 08:51 Dose: 2.5 mg Hydralazine HCl (Apresoline) 100 mg PO TID [facility] Last Admin: 04/22/18 12:12 Dose: 100 mg Insulin Human Lispro (Humalog) 0 units SC Q6 [facility]; Protocol Last Admin: 04/22/18 12:11 Dose: 4 units Nitroglycerin (Nitro-Bid 2% Oint) 1 ea TOP Q6 [facility] Last Admin: 04/22/18 10:00 Dose: 1 ea - Labs Labs: 04/22/18 04:40 04/22/18 04:40 - Constitutional Appears: No Acute Distress - Eye Exam Eye Exam: Conjunctival injection - ENT Exam ENT Exam: Mucous Membranes Moist - Neck Exam Neck Exam: absent: Lymphadenopathy - Respiratory Exam Respiratory Exam: NORMAL BREATHING PATTERN. absent: Chest Wall Tenderness - Cardiovascular Exam Cardiovascular Exam: absent: Gallop, JVD, Rubs - GI/Abdominal Exam GI & Abdominal Exam: Soft, Normal Bowel Sounds - Back Exam Back Exam: absent: CVA tenderness (L) - Neurological Exam Neurological Exam: Alert - Psychiatric Exam Psychiatric exam: Normal Affect - Skin Skin Exam: absent: Cyanosis Assessment and Plan (1) Chronic kidney disease, stage III (moderate) Assessment & Plan: Chronic kidney disease stage IV superimposed acute kidney injury serum creatinine slightly improving Blood pressure is still elevated DC normal saline please and see what happens to the blood pressure she may need to add additional medication as antihypertensive Status: Acute (2) Generalized weakness Status: Acute (3) Dementia Status: Chronic
[2018-04-22 15:19] VITALS: BP 158/79; PULSE 80; O2SAT 98
--- NOTE | 2018-04-22 18:16 | CP.PCM.DIS ---
Provider - Provider Date of Admission: 04/15/18 19:18 Attending physician: Harmeet Raymundo MD Consults: 04/16/18 00:38 Nephrology Consult Routine Comment: Consulting Provider: Nelson Walker Consulting Physician: Nelson Walker Reason for Consult: esrd 04/16/18 12:34 Cardiology Consult Routine Comment: Consulting Provider: Austen Jamil Consulting Physician: Austen Jamil Reason for Consult: Elevated ProBNP 04/17/18 16:48 Neurology Consult Routine Comment: Consulting Provider: Fuentes Jensen Consulting Physician: Fuentes Jensen Reason for Consult: Drowsiness; mental status change 04/21/18 11:59 Hematology Oncology Consult Routine Comment: Consulting Provider: Srinivas Flores Consulting Physician: Srinivas Flores Reason for Consult: ARF;r/o plasma disorder; serum immonofixation mildly elevate Diagnosis - Discharge Diagnosis (1) Metabolic encephalopathy Status: Acute (2) Generalized weakness Status: Acute Priority: High (3) CHF (congestive heart failure) Status: Acute Priority: High (4) Chronic kidney disease, stage IV (severe) Status: Chronic Priority: High (5) Chronic anemia Status: Chronic Priority: Medium (6) Diabetes mellitus Status: Chronic Priority: High (7) Hyperglycemia Status: Acute Priority: High (8) Osteoarthritis of both knees Status: Chronic Priority: High (9) COPD (chronic obstructive pulmonary disease) Status: Chronic Priority: Medium (10) Dementia Status: Chronic Priority: Medium (11) Obesity, morbid Status: Chronic Priority: Medium (12) High cholesterol Status: Chronic Priority: Low (13) Peripheral vascular disease of lower extremity Status: Chronic Priority: Medium (14) Hx of deep venous thrombosis Status: Chronic Hospital Course - Lab Results Lab Results: Most Recent Lab Values WBC 7.9 K/uL (4.8-10.8) 04/22/18 04:40 RBC 3.66 Mil/uL (3.80-5.20) L 04/22/18 04:40 Hgb 10.4 g/dL (12.0-16.0) L 04/22/18 04:40 Hct 31.8 % (34.0-47.0) L 04/22/18 04:40 MCV 86.9 fl (81.0-99.0) 04/22/18 04:40 MCH 28.4 pg (27.0-31.0) 04/22/18 04:40 MCHC 32.7 g/dL (33.0-37.0) L 04/22/18 04:40 RDW 15.5 % (11.5-14.5) H 04/22/18 04:40 Plt Count 243 K/uL (130-400) 04/22/18 04:40 MPV 8.8 fl (7.2-11.7) 04/15/18 15:12 Neut % (Auto) 72.8 % (50.0-75.0) 04/15/18 15:12 Lymph % (Auto) 18.7 % (20.0-40.0) L 04/15/18 15:12 [place] % (Auto) 5.4 % (0.0-10.0) 04/15/18 15:12 Eos % (Auto) 2.1 % (0.0-4.0) 04/15/18 15:12 Baso % (Auto) 1.0 % (0.0-2.0) 04/15/18 15:12 Neut # (Auto) 7.7 K/uL (1.8-7.0) H 04/15/18 15:12 Lymph # (Auto) 2.0 K/uL (1.0-4.3) 04/15/18 15:12 [place] # (Auto) 0.6 K/uL (0.0-0.8) 04/15/18 15:12 Eos # (Auto) 0.2 K/uL (0.0-0.7) 04/15/18 15:12 Baso # (Auto) 0.1 K/uL (0.0-0.2) 04/15/18 15:12 Retic Count 1.5 % (0.5-1.5) 04/22/18 04:40 Sodium 139 mmol/l (132-148) 04/22/18 04:40 Potassium 4.5 MMOL/L (3.6-5.0) 04/22/18 04:40 Chloride 105 mmol/L (98-107) 04/22/18 04:40 Carbon Dioxide 21 mmol/L (22-30) L 04/22/18 04:40 Anion Gap 18 (10-20) 04/22/18 04:40 BUN 71 mg/dl (7-17) H 04/22/18 04:40 Creatinine 3.8 mg/dl (0.7-1.2) H 04/22/18 04:40 Est GFR ( Amer) 14 04/22/18 04:40 Est GFR (Non-Af Amer) 11 04/22/18 04:40 POC Glucose (mg/dL) 253 mg/dL (65-110) H 04/22/18 11:05 Random Glucose 92 mg/dL (65-105) 04/22/18 04:40 Hemoglobin A1c 7.4 % (4.2-6.5) H 04/16/18 05:30 Calcium 9.0 mg/dL (8.4-10.2) 04/22/18 04:40 Phosphorus 5.6 mg/dl (2.5-4.5) H 04/22/18 04:40 Magnesium 2.2 MG/DL (1.6-2.3) 04/22/18 04:40 Iron 30 ug/dL (37-170) L 04/16/18 11:00 TIBC 243 ug/dL (250-450) L 04/16/18 11:00 % Saturation 12 % (20-55) L 04/16/18 11:00 Ferritin 53.7 ng/Ml (11.1-264.0) 04/16/18 11:00 Total Bilirubin 0.4 mg/dl (0.2-1.3) 04/22/18 04:40 AST 25 U/L (14-36) 04/22/18 04:40 ALT 27 U/L (9-52) 04/22/18 04:40 Alkaline Phosphatase 87 U/L (38-126) 04/22/18 04:40 Troponin I 0.0200 ng/mL (0.00-0.120) 04/15/18 15:12 NT-Pro-B Natriuret Pep 2130 pg/ml (0-900) H 04/15/18 15:12 Total Protein 6.4 G/DL (6.3-8.2) 04/22/18 04:40 Total Protein (PEP) 5.2 g/dL (6.1-8.1) L 04/18/18 20:00 Albumin 3.5 g/dL (3.5-5.0) 04/22/18 04:40 Albumin (PEP) 2.8 g/dL (3.8-4.8) L 04/18/18 20:00 Globulin 2.9 gm/dL (2.2-3.9) 04/22/18 04:40 Albumin/Globulin Ratio 1.2 (1.0-2.1) 04/22/18 04:40 Bntvw-9-Esreeoedg 0.3 g/dL (0.2-0.3) 04/18/18 20:00 Aagjl-6-Tsbxihsbz 0.9 g/dL (0.5-0.9) 04/18/18 20:00 Rckt-6-Tuwrrtjc 0.3 g/dL (0.4-0.6) L 04/18/18 20:00 Bujt-8-Jjwertpe 0.3 g/dL (0.2-0.5) 04/18/18 20:00 Gamma Globulins 0.6 g/dL (0.8-1.7) L 04/18/18 20:00 Abnorm Protein Band 1 TEST NOT PERFORMED 04/18/18 20:00 Abnorm Protein Band 2 TEST NOT PERFORMED 04/18/18 20:00 Abnorm Protein Band 3 TEST NOT PERFORMED 04/18/18 20:00 Triglycerides 117 mg/DL (0-149) D 04/16/18 05:30 Cholesterol 133 mg/dL (0-199) 04/16/18 05:30 LDL Cholesterol Direct 63 mg/dL (0-129) 04/16/18 05:30 HDL Cholesterol 34 MG/DL (30-70) 04/16/18 05:30 Vitamin B12 758 pg/mL (239-931) 04/16/18 11:00 25-OH Vitamin D Total 23.1 NG/ML (30.0-100.0) L 04/18/18 20:00 Folate 14.1 ng/mL 04/22/18 04:40 Thyroxine (T4) 7.98 ug/dl (5.5-11.0) 04/16/18 05:30 TSH 3rd Generation 1.84 mIU/ML (0.46-4.68) 04/16/18 05:30 PTH Intact Whole Molec 130 pg/mL (14-64) H 04/16/18 05:30 Urine Color Yellow (YELLOW) 04/15/18 18:35 Urine Clarity Slighty-cloudy (Clear) 04/15/18 18:35 Urine pH 6.0 (5.0-8.0) 04/15/18 18:35 Ur Specific [place] 1.008 (1.003-1.030) 04/15/18 18:35 Urine Protein >=500 mg/dL (NEGATIVE) 04/15/18 18:35 Urine Glucose (UA) 50 mg/dL (NEGATIVE) 04/15/18 18:35 Urine Ketones Negative mg/dL (NEGATIVE) 04/15/18 18:35 Urine Blood Negative (NEGATIVE) 04/15/18 18:35 Urine Nitrate Negative (NEGATIVE) 04/15/18 18:35 Urine Bilirubin Negative (NEGATIVE) 04/15/18 18:35 Urine Urobilinogen 0.2-1.0 mg/dL (0.2-1.0) 04/15/18 18:35 Ur Leukocyte Esterase Neg [place]/uL (Negative) 04/15/18 18:35 Urine RBC (Auto) 2 /hpf (0-3) 04/15/18 18:35 Urine Microscopic WBC < 1 /hpf (0-5) 04/15/18 18:35 Ur Squamous Epith Cells 8 /hpf (0-5) H 04/15/18 18:35 Urine Bacteria Rare (<OCC) 04/15/18 18:35 Hyaline Casts 0-2 /hpf (0-2) 04/15/18 18:35 Ur Random Creatinine 37 mg/dL (20-275) 04/16/18 18:00 U Random Total Protein 34935 mg/g creat (21-161) H 04/16/18 18:00 Urine Total Volume 219.9 mg/dL 04/16/18 18:00 Microalb/Creat Ratio 5944 (<30) H 04/16/18 18:00 SHELL & SPEP Interp See note 04/18/18 20:00 Serum Immunofixation Detected (Not Detected) H 04/18/18 20:00 Tot [place]/Lambda Ratio 2.19 (1.29-2.55) 04/18/18 20:00 [place]inda Light Chain Anal 153 mg/dL (176-443) L 04/18/18 20:00 Lambda Light Chain Anal 70 mg/dL (91-240) L 04/18/18 20:00 Influenza Typ A,B (EIA) Negative for flu a/b (NEGATIVE) 04/15/18 14:55 Discharge Exam - Head Exam Head Exam: NORMAL INSPECTION Discharge Plan - Discharge Medications Prescriptions: hydrALAZINE [Apresoline] 100 mg PO TID #60 tab Polyethylene Glycol/Polyvinyl [Artificial Tears] 2 drop OU Q4 PRN #1 bottle PRN Reason: Dry Eyes Ergocalciferol [Drisdol 50,000 Intl Units Cap] 1 cap PO QWK@0900 #4 cap Nitroglycerin 2% [Nitro-Bid 2% Oint] 1 ea TOP Q6 #1 fp amLODIPine [Norvasc] 10 mg PO DAILY #30 tab Ascorbic Acid [Vitamin C 500 mg Tab] 500 mg PO DAILY #30 tab - Follow Up Plan Condition: FAIR Disposition: HOME/ ROUTINE Instructions: Heart Failure, Adult (DC), High Blood Pressure (DC), Generalized Weakness (DC) Additional Instructions: will visit pt at home on wednesday04/29/18 [facility] visiting nurse [phone] Referrals: Austen Jamil MD [Staff Provider] - Harmeet Raymundo MD [Family Provider] -
== END 2018-04-22 16:07 | disposition home health service (06) | DRG 682 ==
LOC: H.ER 13:23 → H.ERHOLD 19:18 → OBSVTOIN 19:18 → H.TEL 21:59
PROVIDERS: ADMIT Internal Medicine Pulmonary Disease; ATTEND Internal Medicine Pulmonary Disease
DX: N17.9 Acute kidney failure, unspecified (principal); G92 Toxic encephalopathy; I50.33 Acute on chronic diastolic (congestive) heart failure; I13.0 Hypertensive heart and chronic kidney disease with heart failure and stage 1 through stage 4 chronic kidney disease, or unspecified chronic kidney disease; Z68.41 Body mass index [BMI] 40.0-44.9, adult; I16.0 Hypertensive urgency; N18.4 Chronic kidney disease, stage 4 (severe); E11.65 Type 2 diabetes mellitus with hyperglycemia; E11.22 Type 2 diabetes mellitus with diabetic chronic kidney disease; E66.01 Morbid (severe) obesity due to excess calories; D63.1 Anemia in chronic kidney disease; D47.2 Monoclonal gammopathy; E11.51 Type 2 diabetes mellitus with diabetic peripheral angiopathy without gangrene; E11.319 Type 2 diabetes mellitus with unspecified diabetic retinopathy without macular edema; R53.1 Weakness; F03.90 Unspecified dementia, unspecified severity, without behavioral disturbance, psychotic disturbance, mood disturbance, and anxiety; J44.9 Chronic obstructive pulmonary disease, unspecified; M17.0 Bilateral primary osteoarthritis of knee; M81.0 Age-related osteoporosis without current pathological fracture; E78.5 Hyperlipidemia, unspecified; Z99.81 Dependence on supplemental oxygen; E78.00 Pure hypercholesterolemia, unspecified; F41.9 Anxiety disorder, unspecified; Z86.718 Personal history of other venous thrombosis and embolism; Z86.73 Personal history of transient ischemic attack (TIA), and cerebral infarction without residual deficits; Z87.01 Personal history of pneumonia (recurrent); Z79.84 Long term (current) use of oral hypoglycemic drugs; Z79.82 Long term (current) use of aspirin

== ENCOUNTER 2018-07-06 13:35 | Emergency (ER) | payer MEDICARE, MEDICAID ==
[2018-07-06 13:36] VITALS: BMI 33.1
[2018-07-06 15:28] LABS: BASO # 0.1 K/uL (0.0-0.2); EOS # 0.4 K/uL (0.0-0.7); EOS % 4.8 % (0.0-4.0); HEMOGLOBIN 10.7 g/dL (12.0-16.0); LYMPH # 1.5 K/uL (1.0-4.3); LYMPH % 18.1 % (20.0-40.0); MEAN CELL VOLUME 85.1 fl (81.0-99.0); MEAN CORPUSCULAR HEMOGLOBIN 27.8 pg (27.0-31.0); MEAN CORPUSCULAR HGB CONC 32.6 g/dL (33.0-37.0); MEAN PLATELET VOLUME 8.9 fl (7.2-11.7); MONO # 0.5 K/uL (0.0-0.8); MONO % 5.5 % (0.0-10.0); NEUT # 5.9 K/uL (1.8-7.0); NEUT % 70.6 % (50.0-75.0); RBC 3.84 Mil/uL (3.80-5.20); RED CELL DISTRIBUTION WIDTH 14.8 % (11.5-14.5); WHITE BLOOD COUNT 8.4 K/uL (4.8-10.8)
[2018-07-06 15:37] LABS: ALB/GLOB RATIO 1.3 (1.0-2.1); ALBUMIN 4.1 g/dL (3.5-5.0); CALCIUM 9.7 mg/dL (8.4-10.2)
--- NOTE | 2018-07-06 16:15 | RAD ---
Date of service: 07/06/2018 PROCEDURE: Radiographs of the Left Forearm HISTORY: fall onto left arm yesterday, + swelling COMPARISON: None available. TECHNIQUE: Frontal and lateral views obtained. 2 views obtained. FINDINGS: BONES: No fracture or destructive lesion. No definitive fracture is identified on these images. Evaluation of the wrist and distal radius however is less than optimal due to projection. If clinically suspect pathology here, a wrist x-ray study is advised. More proximal shaft remainder of the radius and ulna in the forearm appear unremarkable. Mild generalized osteopenia suggested. 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 OTHER FINDINGS: Atherosclerotic vascular calcifications present. Extensive subcutaneous reticulated edema. No gas-forming cellulitis findings compatible with edema ,cellulitis and or lymphedema. IMPRESSION: No definitive fracture seen. The distal radial metaphyseal region is suboptimally visualized due to projection as referenced above. More proximally no fracture or lytic lesion seen. Other findings as above.
--- NOTE | 2018-07-06 16:38 | ED PDOC ---
Upper Extremity Pain/Injury Time Seen by Provider: 07/06/18 14:24 Chief Complaint (Nursing): Upper Extremity Problem/Injury Chief Complaint (Provider): left arm swelling History Per: Patient, Family (daughter) History/Exam Limitations: other (hard of hearing ) Additional Complaint(s): 87 y/o F with hx of ChF, CRI, HTN, HL, DM who presents with left arm swelling since yesterday. Patient admits to tripping and falling yesterday onto her left arm. She has minimal swelling and has been moving it as much as usual. Denies SOB, numbness or tingling. She has been taking all of her medications. She takes ASA daily. Past Medical History Reviewed: Historical Data, Nursing Documentation, Vital Signs Vital Signs: Last Vital Signs Temp 98.2 F 07/06/18 13:46 Pulse 76 07/06/18 13:46 Resp 16 07/06/18 13:46 BP 188/67 H 07/06/18 13:46 Pulse Ox 100 07/06/18 13:46 - Medical History PMH: Anemia, Anxiety, Arthritis, Asthma, COPD, Depression, Diabetes, Deep Vein Thrombosis (left leg), HTN, Hypercholesterolemia, Osteoporosis, Pneumonia, End Stage Renal Disease (STAGE 3), Chronic Kidney Disease (stage III), TIA Denies: CHF, Hypothyroidism, Rheumatoid Arthritis - Surgical History Surgical History: Appendectomy, Cholecystectomy - Family History Family History: States: Unknown Family Hx - Home Medications Home Medications: Ambulatory Orders Medication Instructions Recorded Ascorbic Acid [Vitamin C] 500 mg PO DAILY 09/28/17 Atorvastatin [Lipitor] 20 mg PO DAILY 09/28/17 Ergocalciferol (Vitamin D2) 50,000 unit PO QWK 09/28/17 [Vitamin D2] Ferrous Sulfate [Feosol] 325 mg PO BID 09/28/17 Glipizide [Glipizide ER] 2.5 mg PO BID 09/28/17 Multivitamin/Iron/Folic Acid 1 each PO DAILY 09/28/17 [Certavite-Antioxidant Tablet] Docusate Sodium [Colace] 100 mg PO DAILY PRN #30 capsule 12/09/17 Aspirin [Aspirin Chewable] 81 mg PO DAILY 04/15/18 Insulin Aspart Prot/Insuln Asp See Protocol SC TID 04/15/18 [Novolog Mix 70-30 Vial] Patiromer Calcium Sorbitex 8.4 gm PO MWF 04/15/18 [Veltassa] Sodium Chloride [Retaine NaCl] 04/15/18 Ascorbic Acid [Vitamin C 500 mg 500 mg PO DAILY #30 tab 04/22/18 Tab] Carvedilol [Coreg] 6.25 mg PO BID #0 04/22/18 Ergocalciferol [Drisdol 50,000 1 cap PO QWK@0900 #4 cap 04/22/18 Intl Units Cap] Nitroglycerin 2% [Nitro-Bid 2% 1 ea TOP Q6 #1 fp 04/22/18 Oint] Polyethylene Glycol/Polyvinyl 2 drop OU Q4 PRN #1 bottle 04/22/18 [Artificial Tears] amLODIPine [Norvasc] 10 mg PO DAILY #30 tab 04/22/18 hydrALAZINE [Apresoline] 100 mg PO TID #60 tab 04/22/18 - Allergies Allergies/Adverse Reactions: Allergies Allergy/AdvReac Type Severity Reaction Status Date / Time No Known Allergies Allergy Verified 07/06/18 13:46 Review of Systems Constitutional: Negative for: Fever Cardiovascular: Negative for: Chest Pain, Palpitations Respiratory: Negative for: Shortness of Breath, Hemoptysis Musculoskeletal: Positive for: Other (left arm swelling) Physical Exam - Reviewed Nursing Documentation Reviewed: Yes Vital Signs Reviewed: Yes - Physical Exam Appears: Positive for: Non-toxic Extremity: Positive for: Normal ROM (normal ROM with flexion and extension of left elbow and wrist. Decreased ROM with abduction of left shoulder (chronic)), Swelling (+ edema from upper forearm to hand on left. No palpable cord, erythema or deformity. ). Negative for: Tenderness (no tenderness on palpation of left forearm or upper arm), Deformity - Laboratory Results Result Diagrams: 07/06/18 15:20 07/06/18 15:20 Lab Results: Total Bilirubin 0.8 mg/dl (0.2-1.3) 07/06/18 15:20 AST 32 U/L (14-36) 07/06/18 15:20 ALT 29 U/L (9-52) 07/06/18 15:20 Alkaline Phosphatase 78 U/L (38-126) 07/06/18 15:20 Total Protein 7.2 G/DL (6.3-8.2) 07/06/18 15:20 Albumin 4.1 g/dL (3.5-5.0) 07/06/18 15:20 Globulin 3.1 gm/dL (2.2-3.9) 07/06/18 15:20 Albumin/Globulin Ratio 1.3 (1.0-2.1) 07/06/18 15:20 - ECG O2 Sat by Pulse Oximetry: 100 Medical Decision Making Medical Decision Making: Left arm x-ray Left upper extremity venous Duplex CBC, CMP LUE U/S: FINDINGS: Doppler ultrasound examination of the left upper extremity venous system was performed from the antecubital fossa to and including internal jugular and subcl nathanael veins. Basilic, ulnar and radial veins also imaged Normal flow, augmentation and compressibility were noted. No evidence of deep vein thrombosis. The cephalic vein was not visible. IMPRESSION: Negative examination left upper extremity for venous thrombosis. Left arm Xray: FINDINGS: BONES: No fracture or destructive lesion. No definitive fracture is identified on these images. Evaluation of the wrist and distal radius however is less than optimal due to projection. If clinically suspect pathology here, a wrist x-ray study is advised. More proximal shaft remainder of the radius and ulna in the forearm appear unremarkable. Mild generalized osteopenia suggested. 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 OTHER FINDINGS: Atherosclerotic vascular calcifications present. Extensive subcutaneous reticulated edema. No gas-forming cellulitis findings compatible with edema ,cellulitis and or lymphedema. IMPRESSION: No definitive fracture seen. The distal radial metaphyseal region is suboptimally visualized due to projection as referenced above. More proximally no fracture or lytic lesion seen. Other findings as above. 18:45: pt re-assessed, left hand swelling improved. Findings discussed with Dr. Raymundo who agrees that patient is stable for discharge to follow up with him in office. Return instructions given. Disposition - Clinical Impression Clinical Impression: Left arm swelling - Patient ED Disposition Is Patient to be Admitted: No Discussed With : Harmeet Raymundo Doctor Will See Patient In The: Office - Disposition Referrals: Harmeet Raymundo MD [Family Provider] - Disposition: Routine/Home Disposition Time: 18:50 Condition: STABLE Additional Instructions: Call Dr. Raymundo's office tomorrow to arrange for follow up. Return to ER for worsening symptoms or if you develop shortness of breath. Forms: [employer] (Lao) Print Language: MOHAWK
--- NOTE | 2018-07-06 18:24 | US ---
Date of service: 07/06/2018 PROCEDURE: Left upper extremity duplex venous sonography. HISTORY: r/o DVT COMPARISON: None TECHNIQUE: Normal flow, augmentation and compressibility were noted. No evidence of deep vein thrombosis.. FINDINGS: Doppler ultrasound examination of the left upper extremity venous system was performed from the antecubital fossa to and including internal jugular and subclavian veins. Basilic, ulnar and radial veins also imaged Normal flow, augmentation and compressibility were noted. No evidence of deep vein thrombosis. The cephalic vein was not visible. IMPRESSION: Negative examination left upper extremity for venous thrombosis.
[2018-07-06 19:36] VITALS: BP 164/56; PULSE 78; RESP 17; TEMP 98.4
[2018-07-06 19:37] VITALS: O2SAT 100
== END 2018-07-06 19:00 | disposition home or self-care (01) ==
LOC: H.ER 13:35
DX: R22.32 Localized swelling, mass and lump, left upper limb (principal); E78.00 Pure hypercholesterolemia, unspecified; I12.0 Hypertensive chronic kidney disease with stage 5 chronic kidney disease or end stage renal disease; J44.9 Chronic obstructive pulmonary disease, unspecified; M81.0 Age-related osteoporosis without current pathological fracture; N18.6 End stage renal disease; Z79.84 Long term (current) use of oral hypoglycemic drugs; Z86.718 Personal history of other venous thrombosis and embolism; Z86.73 Personal history of transient ischemic attack (TIA), and cerebral infarction without residual deficits